=== PATIENT | male | born 1950 | race Caucasian/White ===

== ENCOUNTER → 2021-02-21 | Outpatient (CLI) | payer BC ==
--- NOTE | 2021-02-21 21:48 | CONS ---
CONSULTATION .REASON FOR CONSULTATION: Snoring. HISTORY OF PRESENT ILLNESS: This patient was referred to me by Dr. Madison. The patient has loud snoring and he was referred to me for sleep apnea evaluation. He had already seen Dr. Madison who referred him to me and a baseline screening study will be needed planning further treatment regarding his snoring. He goes to bed around 10:30 pm and wakes up 6:30 am in the morning. He is sleeping in a separate bedroom, knowing that his has cancer for now and they have not been able to sleep in the same bedroom for now. No witnessed apneas. No major somnolence or sleepiness during the day. Patient's Deerfield score is at 6. No recent weight gain or weight loss. He wakes up twice in the middle of night to go to the bathroom. No insomnia. No choking or gasping for air. No grinding of the teeth. No sleepwalking or sleep talking. No issues with driving his car or any other motor vehicle accident because of feeling drowsy or sleepy. PAST MEDICAL HISTORY: Negative. SURGICAL HISTORY: Includes hernia surgery and resection of a skin cancer of basal cell carcinoma. The patient has also had surgical correction of a deviated nasal septum and resection of inferior turbinates. DRUG ALLERGIES: DRUG ALLERGIES ARE TO SULFA. He is also ALLERGIC to NUTS, and PEANUTS AND WALNUTS. OUTPATIENT MEDICATION LIST: Includes Centrum multivitamin, vitamin B12 5000 mcg p.o. daily, vitamin D 325 mcg p.o. daily, Saw palmetto. SOCIAL HISTORY: Nonsmoker. No history of alcohol. No history of IV drugs. FAMILY HISTORY: Father of complications of leukemia. REVIEW OF SYSTEMS: Fourteen-point review of system was done. Positive findings are mentioned in history of present illness. PHYSICAL EXAMINATION: BP is 109/73, pulse 86, respirations 16, temperature 98.0. Saturation 96% on room air. Height is 5 feet 6 inches. Weight is 181. Deerfield score is 6, BMI is 29. General appearance: Calm and comfortable. HEAD: Atraumatic, normocephalic. NECK is supple. No JVD. No goiter or neck masses. LUNGS: Clear to auscultation. HEART: Sounds are regular rate and rhythm. Normal S1, S2. No S3, S4. No murmurs. ABDOMEN: Soft, nontender. No organomegaly. EXTREMITIES: No edema, no cyanosis or clubbing. NEUROLOGIC: Awake and alert. There is no focal neurological deficit. IMPRESSION: 1. Snoring. Suspicion for sleep apnea is quite low. 2. No major hypersomnia. Deerfield score is 6. PLAN: 1. Home sleep study to screen this patient for sleep apnea. 2. We will coordinate snoring treatment with ENT. The patient has no major sinus allergies. He has already undergone a surgical repair of nasal septum. Further treatment will largely depend on the presence or absence of sleep apnea. Accordingly, a home sleep study was ordered. MMODL / IJN: [id number] /
== END ==
LOC: SLEEP 14:12
PROVIDERS: ATTEND Internal Medicine Critical Care Medicine
DX: R06.83 Snoring (principal); Z88.2 Allergy status to sulfonamides; Z91.018 Allergy to other foods; Z91.010 Allergy to peanuts
CPT/HCPCS: 99211

== ENCOUNTER 2023-02-01 16:30 | Inpatient (IN) | payer MEDICARE ==
[2023-02-01] MEDS: PIPERACILLIN-TAZOBACTAM 3.375 GM in SODIUM CHLORIDE 0.9% 100 ML IVPB SCH (18:47)
[2023-02-01] MEDS ORDERED: SODIUM CHLORIDE 0.9% 1,000 ML IV ONE (18:56)
[2023-02-01] MEDS ORDERED: IBUPROFEN 400 MG TAB PO PRN (19:06)
[2023-02-01] MEDS ORDERED: NALOXONE 0.4 MG/ML 1 ML VIAL IV PRN (19:06)
--- NOTE | 2023-02-01 19:06 | ED ---
Abdominal Pain HPI - General Chief Complaint: Abdominal Pain Stated Complaint: Recheck Time Seen by Provider: 02/01/23 17:00 Source: patient Mode of arrival: wheelchair Limitations: no limitations - History of Present Illness Initial Comments: 72-year-old male with past medical history of right hip replacement who presents to the emergency department for an abnormal CT. Patient has been having right lower quadrant abdominal pain for the past couple of days. He went into his primary care office with a completed laboratory studies. Patient was sent to the hospital for a CT of his abdomen and pelvis. Outpatient labs demonstrated that the patient had a leukocytosis. Outpatient CT was concerning for enterocolitis and possible secondary appendicitis. Patient was sent from outpatient CT right over to the ER for abnormal results. He states he has had some constipation today. Did have a fever last night. Denies any black or bloody stools. No changes in his urination. No abdominal surgeries. He was concerned about his fever as he recently had a right hip replacement by a Dr. Durbin one month ago. He denies any hip pain. He tried to call the office last night however they stated that he should go to the hospital if he was having a fever. He did go to urgent care and they checked a urine. Stated that he had a urinary tract infection and started him on Keflex. States she took 1 dose without any improvement in any of his symptoms. No fevers chills or cough. No chest pain. No sick contacts as similar symptoms. No other alleviating, precipitating or modifying factors - Related Data Home Medications Medication Instructions Recorded Confirmed Cephalexin [Keflex] 1,000 mg PO BID 02/01/23 02/01/23 Multivitamins, Thera [Multivitamin 1 tab PO DAILY 02/01/23 02/01/23 (formulary)] [place]-3/Dha/Epa/Fish Oil [Fish Oil 1 cap PO BID 02/01/23 02/01/23 1,000 mg Softgel] Prevagen 1 cap PO DAILY 02/01/23 02/01/23 Allergies Allergy/AdvReac Type Severity Reaction Status Date / Time peanut Allergy Rapid Verified 02/02/23 02:34 Heart Rate tree nut [Nut] Allergy Rapid Verified 02/01/23 19:10 Heart Rate Sulfa (Sulfonamide AdvReac Rash/Hives Verified 02/01/23 19:10 Antibiotics) Review of Systems ROS Statement: Those systems with pertinent positive or pertinent negative responses have been documented in the HPI. ROS Other: All systems not noted in ROS Statement are negative. Past Medical History Past Medical History: No Reported History History of Any Multi-Drug Resistant Organisms: None Reported Past Surgical History: Hernia Repair, Joint Replacement Additional Past Surgical History / Comment(s): right hip , bilateral hernia Past Psychological History: No Psychological Hx Reported Smoking Status: Never smoker Past Alcohol Use History: None Reported Past Drug Use History: None Reported General Exam Limitations: no limitations General appearance: alert, in no apparent distress Head exam: Present: atraumatic, normocephalic, normal inspection Eye exam: Present: normal appearance, PERRL, EOMI. Absent: scleral icterus, conjunctival injection, periorbital swelling ENT exam: Present: normal exam, mucous membranes moist Neck exam: Present: normal inspection. Absent: tenderness, meningismus, lymphadenopathy Respiratory exam: Present: normal lung sounds bilaterally. Absent: respiratory distress, wheezes, rales, rhonchi, stridor Cardiovascular Exam: Present: normal rhythm, tachycardia GI/Abdominal exam: Present: soft, tenderness (significant tenderness rlq), normal bowel sounds. Absent: distended, guarding, rebound, rigid Extremities exam: Present: normal inspection, full ROM, normal capillary refill. Absent: tenderness, pedal edema, joint swelling, calf tenderness Back exam: Present: normal inspection Neurological exam: Present: alert, oriented X3, CN II-XII intact Psychiatric exam: Present: normal affect, normal mood Skin exam: Present: warm, dry, intact, normal color. Absent: rash Course Vital Signs 02/01/23 02/01/23 02/01/23 16:58 17:34 17:40 Temperature 99.7 F H 99.5 F Pulse Rate 108 H 102 H Respiratory 20 20 Rate Blood Pressure 144/78 142/85 142/85 O2 Sat by Pulse 96 96 96 Oximetry 02/01/23 02/01/23 02/01/23 17:50 18:00 18:10 Temperature Pulse Rate Respiratory Rate Blood Pressure 142/85 142/85 142/85 O2 Sat by Pulse 95 96 97 Oximetry 02/01/23 02/01/23 02/01/23 18:20 18:30 18:40 Temperature Pulse Rate Respiratory Rate Blood Pressure 142/85 142/85 142/85 O2 Sat by Pulse 95 95 Oximetry 02/01/23 02/01/23 02/01/23 18:50 19:00 19:10 Temperature Pulse Rate 101 H 97 102 H Respiratory 16 Rate Blood Pressure 142/85 138/82 133/96 O2 Sat by Pulse 97 96 96 Oximetry 02/01/23 02/01/23 02/01/23 19:20 19:27 19:30 Temperature 98.3 F Pulse Rate 104 H 109 H Respiratory 17 Rate Blood Pressure 133/96 133/96 O2 Sat by Pulse 96 94 L Oximetry 02/01/23 02/01/23 02/01/23 19:40 20:00 20:30 Temperature Pulse Rate 99 99 101 H Respiratory Rate Blood Pressure 133/96 133/96 133/78 O2 Sat by Pulse 97 98 Oximetry 02/01/23 02/01/23 21:00 21:30 Temperature Pulse Rate 102 H 104 H Respiratory 16 Rate Blood Pressure 133/78 137/86 O2 Sat by Pulse Oximetry Medical Decision Making - Medical Decision Making Was pt. sent in by a medical professional or institution (, PA, PUNCH FINISHER, urgent care, hospital, or long term...) When possible be specific @ -Yes, sent in from outpatient CT Did you speak to anyone other than the patient for history (EMS, parent, family, police, friend...)? What history was obtained from this source @ -No Did you review nursing and triage notes (agree or disagree)? Why? @ -I reviewed and agree with nursing and triage notes Were old charts reviewed (outside hosp., previous admission, EMS record, old EKG, old radiological studies, urgent care reports/EKG's, long term records)? Report findings @ -yes, i reviewed the patients outpatient ct and lab work from today Differential Diagnosis (chest pain, altered mental status, abdominal pain women, abdominal pain men, vaginal bleeding, weakness, fever, dyspnea, syncope, headache, dizziness, GI bleed, back pain, seizure, CVA, palpatations, mental health, musculoskeletal)? @ -appendicitis, colitis, enterocolitis, mesenteric adenitis EKG interpreted by me (3pts min.). @ -No X-rays interpreted by me (1pt min.). @ -No CT interpreted by me (1pt min.). @ -I interpreted the outpatient CT U/S interpreted by me (1pt. min.). @ -None done What testing was considered but not performed or refused? (CT, X-rays, U/S, labs)? Why? @ -None What meds were considered but not given or refused? Why? @ -None Did you discuss the management of the patient with other professionals (professionals i.e. , PA, PUNCH FINISHER, lab, RT, psych nurse, geriatric social work professor, vehicle damage appraiser, teacher, retail loan officer, family caseworker)? Give summary @ -Yes, discussed admission with dr francis Was smoking cessation discussed for >3mins.? @ -No Was critical care preformed (if so, how long)? @ -No Were there social determinants of health that impacted care today? How? (Homelessness, low income, unemployed, alcoholism, drug addiction, transportatio n, low edu. Level, literacy, decrease access to med. care, halfway, rehab)? @ -No Was there de-escalation of care discussed even if they declined (Discuss DNR or withdrawal of care, Hospice)? DNR status @ -No What co-morbidities impacted this encounter? (DM, HTN, Smoking, COPD, CAD, Cancer, CVA, ARF, Chemo, Hep., AIDS, mental health diagnosis, sleep apnea, morbid obesity)? @ -None Was patient admitted / discharged? Hospital course, mention meds given and route, prescriptions, significant lab abnormalities, going to OR and other pertinent info. @ -Upon arrival patient was placed into room 11. Thorough history and physical exam is performed. I did review the patient's outpatient labs which demonstrated a leukocytosis. CT from today demonstrates enterocolitis with concern for secondary appendicitis. I recommended admission for antibiotics, fluids and surgical consultation. Patient was agreeable to this. Dr. Francis accepted admission with Dr. Gonzalez on consult Undiagnosed new problem with uncertain prognosis? @ -yes Drug Therapy requiring intensive monitoring for toxicity (Heparin, Nitro, In sulin, Cardizem)? @ -No Were any procedures done? @ -No Diagnosis/symptom? @ -acute rlq pain, acute enterocolitis, possible appendicitis Acute, or Chronic, or Acute on Chronic? @ -acute Uncomplicated (without systemic symptoms) or Complicated (systemic symptoms)? @ -complicated Side effects of treatment? @ -allergic reaction Exacerbation, Progression, or Severe Exacerbation? @ -No Poses a threat to life or bodily function? How? (Chest pain, [place], [place], pneumonia, PE, COPD, DKA, ARF, appy, cholecystitis, CVA, Diverticulitis, Homicidal, Suicidal, threat to staff... and all critical care pts) @ -yes - if untreated, infection can lead to - Lab Data Result diagrams: 02/04/23 04:36 02/04/23 04:36 Disposition Clinical Impression: Sepsis, Appendicitis, Enterocolitis, Leukocytosis Disposition: ADMITTED IP TO THIS [facility] Condition: Serious Is patient prescribed a controlled substance at d/c from ED?: No Time of Disposition: 19:06 Decision to Admit Reason: Admit from EC Decision Date: 02/01/23 Decision Time: 19:06
[2023-02-01] MEDS: SODIUM CHLORIDE 0.9% 1,000 ML IV SCH (19:14)
[2023-02-02] MEDS: PIPERACILLIN-TAZOBACTAM 3.375 GM in SODIUM CHLORIDE 0.9% 100 ML IVPB SCH ×4 (00:36→23:46)
[2023-02-02] MEDS: SODIUM CHLORIDE 0.9% 1,000 ML IV SCH ×2 (04:23→13:29)
[2023-02-02 08:08] LABS: Basophils % (A) 0 %; Eosinophils # (A) 0.1 k/uL (0-0.7); Eosinophils % (A) 1 %; HCT 37.2 % (39.0-53.0); HGB 12.1 gm/dL (13.0-17.5); Lymphocytes # (A) 0.8 k/uL (1.0-4.8); Lymphocytes % (A) 6 %; MCH 31.5 pg (25.0-35.0); MCHC 32.5 g/dL (31.0-37.0); Mean Platelet Volume 8.9; Monocytes # (A) 0.4 k/uL (0-1.0); Monocytes % (A) 3 %; Neutrophils # (A) 11.1 k/uL (1.3-7.7); Neutrophils % (A) 89 %; Platelet Count 146 k/uL (150-450); RBC 3.83 m/uL (4.30-5.90); RDW 13.5 % (11.5-15.5); WBC 12.5 k/uL (3.8-10.6)
[2023-02-02] MEDS ORDERED: NON FORMULARY DRUG (Omega-3/Dha/Epa/Fish Oil [Fish Oil 1,000 Mg Softgel] 1 EACH Capsule) PO SCH (09:00)
[2023-02-02] MEDS ORDERED: NON FORMULARY DRUG (Prevagen 1 CAP) PO SCH (09:00)
[2023-02-02] MEDS ORDERED: MORPHINE SULFATE 4 MG/ML SYRINGE IVP PRN (09:10)
--- NOTE | 2023-02-02 09:10 | P.HPIM ---
History of Present Illness H&P Date: 02/02/23 Notified of admission at 8:03 AM as patient initially admitted under [facility] italist team. History of Presenting Illness: Patient is a very pleasant 72-year-old male with a past medical history of obstructive sleep apnea and osteoarthritis status post right hip replacement. He presented to the emergency department secondary to right lower quadrant abdominal pain. Patient reported pain began 2-3 days ago and progressively worsened. Patient went to his PCP for evaluation and was sent to the hospital for a CT abdomen and pelvis. Outpatient CT abdomen and pelvis with contrast was reviewed and revealed moderate generalized enterocolitis with the greatest degree of small bowel wall thickening in right lower quadrant, inflammatory thickening also extending into the cecum and appendix as well, primary en terocolitis with secondary inflammation of the appendix is reported, acute appendicitis is not ruled out, also reported long segment colitis is noted to transverse colon, moderate inflammatory edema and fat stranding in the right lower quadrant along with mild pelvic free fluid likely reactive, circ umferential bladder wall thickening possibly representing chronic bilateral hypertrophia versus cystitis, and prostamegaly with prostate reported to be 5.3 cm wide. Patient was sent to ER secondary to these findings. Patient has been admitted under our services with consultation to general surgery team. Patient denies experiencing any nausea, vomiting, fevers, chills, diaphoresis, chest pain, palpitations, shortness of breath, or any other complaints at this time. Review of systems: Pertinent positives and negatives as discussed in HPI, a complete review of systems was performed and all other systems are negative. Physical exam: Vital signs reviewed and stable. General: Nontoxic, no distress and appears stated age. Derm: Skin warm and dry, normal coloration for ethnicity. Head: Atraumatic, normocephalic and symmetric. Eyes: EOMs intact, no lid lag, and anicteric sclera Mouth: no lip lesions, mucus membranes moist Cardiovascular: regular rate and rhythm with normal S1S2, no murmur, positive posterior tibial pulses bilaterally, and cap refill < 2 seconds. Lungs: Respirations even, regular, and unlabored on room air. Lungs CTA bilaterally, no rhonchi, no rales, no wheezing, and no accessory muscle usage. Abdominal: soft, tenderness reported to right lower quadrant, left lower quadra nt, and right upper quadrant upon palpation. Patient does report worse pain in right lower quadrant. Ext: ROM intact. No gross muscle atrophy, no edema, no contractures Neuro: Speech clear, face symmetrical and CN II-XII grossly intact with no noted focal neuro deficits Psych: Alert and oriented to person, place, time, and situation. Appropriate and pleasant affect. Assessment and Plan of Care: Enterocolitis Right lower quadrant abdominal pain, rule out acute appendicitis Leukocytosis, secondary to above -CT abdomen and pelvis with contrast was reviewed and revealed moderate generalized enterocolitis with the greatest degree of small bowel wall thickening in right lower quadrant, inflammatory thickening also extending into the cecum and appendix as well, primary enterocolitis with secondary inflammation of the appendix is reported, acute appendicitis is not ruled out, also reported long segment colitis is noted to transverse colon, moderate inflammatory edema and fat stranding in the right lower quadrant along with mild pelvic free fluid likely reactive, circumferential bladder wall thickening possibly representing chronic bilateral hypertrophia versus cystitis, and prostamegaly with prostate reported to be 5.3 cm wide. -Morning labs reviewed. CBC revealing leukocytosis with WBC count of 12.5 and normocytic anemia with hemoglobin of 12.1. BMP was unremarkable. -Continue IV antibiotics with Zosyn 3.375 g every 8 hours -0.9% normal saline discontinued and patient started on D5 0.45 at 100 mL's per hour. Orders also placed for glycemic protocol and [id number] glucose checks every 6 hours while patient remains NPO. -Discussed with general surgeon, plans to continue IV antibiotics and will reevaluate daily. If no improvement may require surgical intervention. -Order placed for repeat CBC and CMP with a.m. labs. Abnormal imaging finding Circumferential bladder wall thickening, chronic bilateral hypertrophia versus cystitis Prostamegaly -Order placed for urinalysis with reflex to culture, will follow up on these results. -Order placed for bladder management to monitor for post void residuals and strict I's and O's. The patient is admitted with an anticipated greater than 2 midnight stay for evaluation of acute enterocolitis and possible appendicitis CODE STATUS: Full code DVT prophylaxis: Heparin Discussed with: Patient, RN, and general surgeon Anticipated discharge date: Clinical course to determine Anticipated discharge place: Home Patient was seen independently by Nurse Practitioner. This document was prepared using Qinti dictation software. Please allow for errors in artists' model while rare they do occur. Eric Mitchell NP rendered care for this patient independently, reviewed the findings and plan as documented in the note above. I did not physically speak with or examine the patient on this date. Past Medical History Past Medical History: No Reported History History of Any Multi-Drug Resistant Organisms: None Reported Past Surgical History: Hernia Repair, Joint Replacement Additional Past Surgical History / Comment(s): right hip , bilateral hernia Past Anesthesia/Blood Transfusion Reactions: No Reported Reaction Past Psychological History: No Psychological Hx Reported Smoking Status: Never smoker Past Alcohol Use History: None Reported Past Drug Use History: None Reported Medications and Allergies Home Medications Medication Instructions Recorded Confirmed Type Cephalexin [Keflex] 1,000 mg PO BID 02/01/23 02/01/23 History Multivitamins, Thera [Multivitamin 1 tab PO DAILY 02/01/23 02/01/23 History (formulary)] [place]-3/Dha/Epa/Fish Oil [Fish Oil 1 cap PO BID 02/01/23 02/01/23 History 1,000 mg Softgel] Prevagen 1 cap PO DAILY 02/01/23 02/01/23 History Allergies Allergy/AdvReac Type Severity Reaction Status Date / Time peanut Allergy Rapid Verified 02/02/23 02:34 Heart Rate tree nut [Nut] Allergy Rapid Verified 02/01/23 19:10 Heart Rate Sulfa (Sulfonamide AdvReac Rash/Hives Verified 02/01/23 19:10 Antibiotics) Physical Exam Vitals: Vital Signs Temp Pulse Pulse Resp BP BP Pulse Ox 02/02/23 07:28 97.7 F 92 16 103/63 94 L 02/02/23 01:20 98.4 F 99 18 98/62 93 L 02/01/23 22:30 104 H 02/01/23 22:05 98.4 F 102 H 17 120/75 95 02/01/23 21:30 104 H 16 137/86 02/01/23 21:00 102 H 133/78 02/01/23 20:30 101 H 133/78 98 02/01/23 20:00 99 133/96 97 02/01/23 19:40 99 133/96 02/01/23 19:30 109 H 17 133/96 94 L 02/01/23 19:27 98.3 F 02/01/23 19:20 104 H 133/96 96 02/01/23 19:10 102 H 133/96 96 02/01/23 19:00 97 138/82 96 02/01/23 18:50 101 H 16 142/85 97 02/01/23 18:40 142/85 02/01/23 18:30 142/85 95 02/01/23 18:20 142/85 95 02/01/23 18:10 142/85 97 02/01/23 18:00 142/85 96 02/01/23 17:50 142/85 95 02/01/23 17:40 142/85 96 02/01/23 17:34 99.5 F 102 H 20 142/85 96 02/01/23 16:58 99.7 F H 108 H 20 144/78 96 Intake and Output 02/01/23 02/02/23 02/02/23 22:59 06:59 14:59 Output Total 500 Balance -500 Output: Urine 500 Other: Voiding Method Toilet Urinal Weight 79.379 kg Results CBC & Chem 7: 02/04/23 04:36 02/04/23 04:36 Labs: Abnormal Lab Results - Last 24 Hours (Table) 02/02/23 Range/Units 06:58 WBC 12.5 H (3.8-10.6) k/uL RBC 3.83 L (4.30-5.90) m/uL Hgb 12.1 L (13.0-17.5) gm/dL Hct 37.2 L (39.0-53.0) % Plt Count 146 L (150-450) k/uL Neutrophils # 11.1 H (1.3-7.7) k/uL Lymphocytes # 0.8 L (1.0-4.8) k/uL Thrombosis Risk Factor Assmnt - Choose All That Apply Any of the Below Risk Factors Present?: No Other Risk Factors: Yes Each Risk Factor Represents 2 Points: Age 61-74 years Thrombosis Risk Factor Assessment Total Risk Factor Score: 2 Thrombosis Risk Factor Assessment Level: Low Risk
[2023-02-02] MEDS: MULTIVITAMINS, THERA 1 EACH TAB PO SCH (09:13)
--- NOTE | 2023-02-02 09:18 | P.GSCN ---
History of Present Illness Consult date: 02/02/23 Reason for Consult: Abdominal pain History of present illness: This a 72-year-old male who's had complaints of abdominal pain for several days. Patient was seen initially. His CAT scan suggestive of colitis of the terminal ileum and right colon. Patient states his pain is better today. He does have some tenderness in the right lower quadrant. Past Medical History Past Medical History: No Reported History History of Any Multi-Drug Resistant Organisms: None Reported Past Surgical History: Hernia Repair, Joint Replacement Additional Past Surgical History / Comment(s): right hip , bilateral hernia Past Anesthesia/Blood Transfusion Reactions: No Reported Reaction Past Psychological History: No Psychological Hx Reported Smoking Status: Never smoker Past Alcohol Use History: None Reported Past Drug Use History: None Reported Medications and Allergies Home Medications Medication Instructions Recorded Confirmed Type Cephalexin [Keflex] 1,000 mg PO BID 02/01/23 02/01/23 History Multivitamins, Thera [Multivitamin 1 tab PO DAILY 02/01/23 02/01/23 History (formulary)] [place]-3/Dha/Epa/Fish Oil [Fish Oil 1 cap PO BID 02/01/23 02/01/23 History 1,000 mg Softgel] Prevagen 1 cap PO DAILY 02/01/23 02/01/23 History Allergies Allergy/AdvReac Type Severity Reaction Status Date / Time peanut Allergy Rapid Verified 02/02/23 02:34 Heart Rate tree nut [Nut] Allergy Rapid Verified 02/01/23 19:10 Heart Rate Sulfa (Sulfonamide AdvReac Rash/Hives Verified 02/01/23 19:10 Antibiotics) Surgical - Exam Vital Signs Temp Pulse Resp BP Pulse Ox 99.7 F H 108 H 20 144/78 96 02/01/23 16:58 02/01/23 16:58 02/01/23 16:58 02/01/23 16:58 02/01/23 16:58 - General well developed, well nourished, no distress - Eyes PERRL - ENT normal pinna - Neck no masses - Respiratory normal expansion - Cardiovascular Rhythm: regular - Abdomen Marked tenderness right lower quadrant Abdomen: soft Results - Labs 02/02/23 06:58 Abnormal Lab Results - Last 24 Hours (Table) 02/02/23 Range/Units 06:58 WBC 12.5 H (3.8-10.6) k/uL RBC 3.83 L (4.30-5.90) m/uL Hgb 12.1 L (13.0-17.5) gm/dL Hct 37.2 L (39.0-53.0) % Plt Count 146 L (150-450) k/uL Neutrophils # 11.1 H (1.3-7.7) k/uL Lymphocytes # 0.8 L (1.0-4.8) k/uL Assessment and Plan Plan: Enterocleisis. Patient will be observed. He'll continue receive IV antibiotics. He may require surgery if this symptoms did not improve.
[2023-02-02] MEDS: ACETAMINOPHEN TAB 325 MG TAB PO PRN ×2 (09:19→21:58)
[2023-02-02] MEDS: PANTOPRAZOLE 40 MG/10 ML VIAL IVP SCH (09:22)
[2023-02-02 09:56] LABS: African American GFR (CKD) 70.8 (60.0-200.0); Anion Gap 11.6 mmol/L (10.00-18.00); BUN/Creat Ratio 11.88 Ratio (12.00-20.00); Blood Urea Nitrogen 13.9 mg/dL (9.0-27.0); Calcium 8.6 mg/dL (8.7-10.3); Carbon Dioxide 21.5 mmol/L (20.0-27.5); Non-African American GFR(CKD) 61.1 (60.0-200.0); Potassium 4.3 mmol/L (3.5-5.5)
[2023-02-02] MEDS ORDERED: DEXTROSE 50% SYRINGE 50 ML IVP PRN ×2 (16:26)
[2023-02-02 16:36] LABS: Glucose,Whole Blood 85 mg/dL (70-110)
[2023-02-02] MEDS: HEPARIN SODIUM,PORCINE/PF 5,000 UNIT/0.5 ML SYRINGE SQ SCH ×2 (16:51→23:47)
[2023-02-02] MEDS: DEXTROSE 5%-0.45% NACL 1,000 ML IV SCH (16:52)
[2023-02-02 23:58] LABS: Glucose,Whole Blood 112 mg/dL (70-110)
[2023-02-03 03:34] LABS: Appearance,Urine Clear (Clear); Bacteria,Urine Rare /hpf; Bilirubin,Urine Negative (Negative); Blood,Urine Small (Negative); Color,Urine Yellow; Glucose,Urine (UA) Negative (Negative); Ketones,Urine 3+ (Negative); Leukocyte Esterase,Urine Negative (Negative); Nitrite,Urine Negative (Negative); PH, Urine 6.5 (5.0-8.0); Protein,Urine 1+ (Negative); RBC,Urine 5 /hpf (0-5); Specific Gravity,Urine 1.024 (1.001-1.035); Urobilinogen,Urine <2.0 mg/dL (<2.0); WBC,Urine 1 /hpf (0-5)
[2023-02-03] MEDS: DEXTROSE 5%-0.45% NACL 1,000 ML IV SCH ×2 (05:26→14:32)
[2023-02-03] MEDS: ACETAMINOPHEN TAB 325 MG TAB PO PRN ×5 (05:28→23:27)
[2023-02-03 05:42] LABS: Glucose,Whole Blood 111 mg/dL (70-110)
[2023-02-03] MEDS: PIPERACILLIN-TAZOBACTAM 3.375 GM in SODIUM CHLORIDE 0.9% 100 ML IVPB SCH ×3 (08:59→23:28)
[2023-02-03] MEDS: HEPARIN SODIUM,PORCINE/PF 5,000 UNIT/0.5 ML SYRINGE SQ SCH ×3 (08:59→23:28)
[2023-02-03] MEDS: MULTIVITAMINS, THERA 1 EACH TAB PO SCH (09:00)
[2023-02-03] MEDS: PANTOPRAZOLE 40 MG/10 ML VIAL IVP SCH (09:41)
[2023-02-03 10:35] LABS: ALT 13 U/L (4-49); AST 19 U/L (17-59); African American GFR (CKD) >90 (>60 ml/min/1.73 sqM); Albumin/Globulin Ratio 1.1; Alkaline Phosphatase 76 U/L (38-126); Anion Gap 7 mmol/L; Blood Urea Nitrogen 11 mg/dL (9-20); Calcium 8.2 mg/dL (8.4-10.2); Carbon Dioxide 24 mmol/L (22-30); Chloride 104 mmol/L (98-107); Globulin 2.7 g/dL; Glucose 125 mg/dL (74-99); Non-African American GFR(CKD) 84 (>60 ml/min/1.73 sqM); Potassium 3.7 mmol/L (3.5-5.1); Sodium 135 mmol/L (137-145); Total Bilirubin 0.8 mg/dL (0.2-1.3); Total Protein 5.7 g/dL (6.3-8.2)
[2023-02-03 10:40] LABS: HCT 36.1 % (39.0-53.0); HGB 11.8 gm/dL (13.0-17.5); MCH 30.6 pg (25.0-35.0); MCHC 32.6 g/dL (31.0-37.0); MCV 94.1 fL (80.0-100.0); Platelet Count 217 k/uL (150-450); RBC 3.84 m/uL (4.30-5.90); RDW 13.5 % (11.5-15.5); WBC 11.8 k/uL (3.8-10.6)
[2023-02-03 11:29] LABS: Glucose,Whole Blood 119 mg/dL (70-110)
--- NOTE | 2023-02-03 12:34 | P.PN ---
Progress Note - Text Progress Note Date: 02/03/23 Patient still has complaints of significant right lower quadrant pain. On exam vital signs appear stable. Abdomen soft. There is tenderness left lower quadrant. Patient will have repeat CAT scan performed today with oral contrast tonight for source of right lower quadrant pain.
[2023-02-03] MEDS: IOPAMIDOL CONTRAST (ORAL USE) VIAL PO PRN ×2 (13:18→14:29)
[2023-02-03 16:57] LABS: Glucose,Whole Blood 123 mg/dL (70-110)
--- NOTE | 2023-02-03 17:00 | P.PN ---
Subjective Progress Note Date: 02/03/23 Hospital course: Patient is a very pleasant 72-year-old male with a past medical history of obstructive sleep apnea and osteoarthritis status post right hip replacement. He presented to the emergency department secondary to right lower quadrant abdominal pain. Patient reported pain began 2-3 days ago and progressively worsened. Patient went to his PCP for evaluation and was sent to the hospital for a CT abdomen and pelvis. Outpatient CT abdomen and pelvis with contrast was reviewed and revealed moderate generalized enterocolitis with the greatest degr ee of small bowel wall thickening in right lower quadrant, inflammatory thickening also extending into the cecum and appendix as well, primary enterocolitis with secondary inflammation of the appendix is reported, acute appendicitis is not ruled out, also reported long segment colitis is noted to tr ansverse colon, moderate inflammatory edema and fat stranding in the right lower quadrant along with mild pelvic free fluid likely reactive, circumferential bladder wall thickening possibly representing chronic bilateral hypertrophia versus cystitis, and prostamegaly with prostate reported to be 5.3 cm wide. Patient was sent to ER secondary to these findings. Patient has been admitted under our services with consultation to general surgery team. Physical exam: Patient denies experiencing any nausea, vomiting, fevers, chills, diaphoresis, chest pain, palpitations, shortness of breath, or any other complaints at this time. Patient does report slight improvement in abdominal pain but continues to have moderate discomfort with light palpation to right lower quadrant. Vital signs reviewed and stable. General: Nontoxic, no distress and appears stated age. Derm: Skin warm and dry, normal coloration for ethnicity. Head: Atraumatic, normocephalic and symmetric. Eyes: EOMs intact, no lid lag, and anicteric sclera Mouth: no lip lesions, mucus membranes moist Cardiovascular: regular rate and rhythm with normal S1S2, no murmur, positive posterior tibial pulses bilaterally, and cap refill < 2 seconds. Lungs: Respirations even, regular, and unlabored on room air. Lungs CTA bilaterally, no rhonchi, no rales, no wheezing, and no accessory muscle usage. Abdominal: soft, tenderness reported to right lower quadrant upon palpation. Patient does report worse pain in right lower quadrant. Ext: ROM intact. No gross muscle atrophy, no edema, no contractures Neuro: Speech clear, face symmetrical and CN II-XII grossly intact with no noted focal neuro deficits Psych: Alert and oriented to person, place, time, and situation. Appropriate and pleasant affect. Assessment and Plan of Care: Enterocolitis Right lower quadrant abdominal pain, rule out acute appendicitis Leukocytosis, secondary to above -CT abdomen and pelvis with contrast was completed 02/01/23 revealed moderate generalized enterocolitis with the greatest degree of small bowel wall thicken ing in right lower quadrant, inflammatory thickening also extending into the cecum and appendix as well, primary enterocolitis with secondary inflammation of the appendix is reported, acute appendicitis is not ruled out, also reported long segment colitis is noted to transverse colon, moderate inflammatory edema and fat stranding in the right lower quadrant along with mild pelvic free fluid likely reactive, circumferential bladder wall thickening possibly representing chronic bilateral hypertrophia versus cystitis, and prostamegaly with prostate reported to be 5.3 cm wide. -Repeat CT abdomen and pelvis with oral and IV contrast being completed today, will follow up on these results. -Morning labs reviewed. CBC revealing leukocytosis with WBC count of 11.8 and normocytic anemia with hemoglobin of 11.8. BMP remains unremarkable. -Continue IV antibiotics with Zosyn 3.375 g every 8 hours -Continue with IV fluid hydration with D5 0.45 at 100 mL's per hour. Orders also placed for glycemic protocol and [id number] glucose checks every 6 hours while patient remains NPO. -Discussed with general surgeon, plans to continue IV antibiotics and If no improvement pt may require surgical intervention. -Order placed for repeat CBC and CMP with a.m. labs. Abnormal imaging finding Circumferential bladder wall thickening, chronic bilateral hypertrophia versus cystitis Prostamegaly -Urinalysis obtained positive for ketones negative for infection. -Order placed for bladder management to monitor for post void residuals and strict I's and O's. CODE STATUS: Full code DVT prophylaxis: Heparin Discussed with: Patient, RN, and general surgeon Anticipated discharge date: Clinical course to determine Anticipated discharge place: Home Patient was seen independently by Nurse Practitioner. This document was prepared using [employer] dictation software. Please allow for errors in wool classer while rare they do occur. Eric Mitchell NP rendered care for this patient independently, reviewed the findings and plan as documented in the note above. I did not physically speak with or examine the patient on this date. Objective - Vital Signs Vital signs: Vital Signs Temp 98.3 F 02/03/23 08:00 Pulse 89 02/03/23 08:16 Resp 17 02/03/23 08:16 BP 137/73 02/03/23 08:00 Pulse Ox 95 02/03/23 08:00 FiO2 Intake & Output 02/02/23 02/03/23 02/03/23 18:59 06:59 18:59 Intake Total 0 Balance 0 Intake: Oral 0 Other: Voiding Method Toilet Toilet Urinal # Voids 2 2 - Labs CBC & Chem 7: 02/04/23 04:36 02/04/23 04:36 Labs: Abnormal Lab Results - Last 24 Hours (Table) 02/02/23 02/02/23 02/03/23 Range/Units 06:58 23:48 03:00 BUN/Creatinine Ratio 11.88 L (12.00-20.00) Ratio POC Glucose (mg/dL) 112 H (70-110) mg/dL Calcium 8.6 L (8.7-10.3) mg/dL Urine Protein 1+ H (Negative) Urine Ketones 3+ H (Negative) Urine Blood Small H (Negative) Urine Bacteria Rare H (None) /hpf 02/03/23 Range/Units 05:40 BUN/Creatinine Ratio (12.00-20.00) Ratio POC Glucose (mg/dL) 111 H (70-110) mg/dL Calcium (8.7-10.3) mg/dL Urine Protein (Negative) Urine Ketones (Negative) Urine Blood (Negative) Urine Bacteria (None) /hpf
--- NOTE | 2023-02-03 18:20 | CT ---
EXAMINATION TYPE: CT abdomen pelvis w con DATE OF EXAM: 02/03/2023 COMPARISON: Right lower quadrant pain INDICATION: abdominal pain DLP: 1053.3 mGycm, Automated exposure control for dose reduction was used. CONTRAST: 100 cc mL of Isovue 300. Study performed with Oral Contrast TECHNIQUE: Axial images were obtained from above the diaphragm to the pubic rami in the axial plane a t 5 mm thick sections. Reconstructed images are reviewed on the computer in the coronal plane. FINDINGS: Limited CT sections are obtained the lung bases. There is a minimal bilateral pleural effusion. Some mild compressive atelectasis adjacent. Small hiatal hernia with reflux is evident. CT ABDOMEN: Liver: Tiny hepatic cysts are present. Spleen: Normal Pancreas: Normal Adrenal glands: The adrenal glands are normal. Gallbladder: Normal Kidneys: No masses are evident. No hydronephrosis is present. No cysts are present. Delayed images were obtained through the kidneys, which remain unremarkable. Aorta: Normal Inferior vena cava: Normal. CT PELVIS: There is diffuse thickening of the cecum. Thickening extends into the terminal ileum. Fluid is in the paracolic gutter and pericecal region. The cecum appears distended measuring 6.9 cm in diameter. The appendix appears dilated at 1.4 cm. A couple of calcifications may be present. More proximal small bowel loops have a normal caliber. Couple of loops may be incompletely distended limiting their evaluation. There are loops of bowel lacking oral contrast limiting their evaluation. Descending colon may have some mild wall thickening within its mid to distal portion. This however i s nondistended. Some thickening through the distal descending colon at the descending colon sigmoid c olon junction may be present. Appendix: Normal as visualized. Urinary bladder: Normal. Impression from the prostate is evident. Genitourinary structures: Prostate is prominent. Osseous structures: No suspicious lytic or sclerotic lesions. Spondylolysis of L5 is present IMPRESSIONS: 1. Worsening thickening of the cecum. The cecum is becoming dilated and there is interval dilatation of the appendix. Terminal ileum wall thickening is also present. Correlate for typhlitis. This may b e creating secondary changes within the appendix suggesting this may be obstructing the appendix. 2. There are some additional mild wall thickening or incomplete distention including more proximal sm all bowel loops and the descending colon discussed above.
[2023-02-03 23:36] LABS: Glucose,Whole Blood 114 mg/dL (70-110)
[2023-02-04] MEDS: DEXTROSE 5%-0.45% NACL 1,000 ML IV SCH ×3 (00:35→23:03)
[2023-02-04 05:42] LABS: Glucose,Whole Blood 115 mg/dL (70-110)
[2023-02-04] MEDS: PIPERACILLIN-TAZOBACTAM 3.375 GM in SODIUM CHLORIDE 0.9% 100 ML IVPB SCH ×3 (08:48→23:27)
[2023-02-04] MEDS: HEPARIN SODIUM,PORCINE/PF 5,000 UNIT/0.5 ML SYRINGE SQ SCH ×3 (08:48→23:27)
[2023-02-04] MEDS: MULTIVITAMINS, THERA 1 EACH TAB PO SCH (08:48)
[2023-02-04] MEDS: PANTOPRAZOLE 40 MG/10 ML VIAL IVP SCH (08:48)
[2023-02-04] MEDS: ACETAMINOPHEN TAB 325 MG TAB PO PRN (08:54)
[2023-02-04 09:36] LABS: African American GFR (CKD) 76.2 (60.0-200.0); Albumin 3.3 g/dL (3.8-4.9); Albumin/Globulin Ratio 1.32 (1.60-3.17); Anion Gap 10.7 mmol/L (10.00-18.00); BUN/Creat Ratio 6.55 Ratio (12.00-20.00); Blood Urea Nitrogen 7.2 mg/dL (9.0-27.0); Calcium 8.8 mg/dL (8.7-10.3); Carbon Dioxide 24.3 mmol/L (20.0-27.5); Globulin 2.5 g/dL (1.6-3.3); Non-African American GFR(CKD) 65.8 (60.0-200.0); Potassium 3.7 mmol/L (3.5-5.5); Total Bilirubin 0.5 mg/dL (0.30-1.20); Total Protein 5.8 g/dL (6.2-8.2)
[2023-02-04 09:45] LABS: HCT 36.2 % (39.6-50.0); HGB 11.4 g/dL (13.0-17.0); MCH 29.8 pg (27.0-32.0); MCHC 31.5 g/dL (32.0-37.0); MCV 94.8 fL (80.0-97.0); Mean Platelet Volume 10.8 fL (9.5-12.2); NRBC Per 100 WBC 0 /100 WBCS (0.0-0.0); Platelet Count 238 X 10*3/uL (140-440); RBC 3.82 X 10*6/uL (4.40-5.60); RDW 13.8 % (11.5-14.5)
[2023-02-04 11:51] LABS: Glucose,Whole Blood 119 mg/dL (70-110)
[2023-02-04 12:27] LABS: INR 0.9 (<1.2); Partial Thromboplastin Time 28.9 sec (22.0-30.0); Prothrombin Time 9.5 sec (9.0-12.0)
--- NOTE | 2023-02-04 12:55 | P.PN ---
Subjective Progress Note Date: 02/04/23 Hospital course: Patient is a very pleasant 72-year-old male with a past medical history of obstructive sleep apnea and osteoarthritis status post right hip replacement. He presented to the emergency department secondary to right lower quadrant abdominal pain. Patient reported pain began 2-3 days ago and progressively worsened. Patient went to his PCP for evaluation and was sent to the hospital for a CT abdomen and pelvis. Outpatient CT abdomen and pelvis with contrast was reviewed and revealed moderate generalized enterocolitis with the greatest degr ee of small bowel wall thickening in right lower quadrant, inflammatory thickening also extending into the cecum and appendix as well, primary enterocolitis with secondary inflammation of the appendix is reported, acute appendicitis is not ruled out, also reported long segment colitis is noted to tr ansverse colon, moderate inflammatory edema and fat stranding in the right lower quadrant along with mild pelvic free fluid likely reactive, circumferential bladder wall thickening possibly representing chronic bilateral hypertrophia versus cystitis, and prostamegaly with prostate reported to be 5.3 cm wide. Patient was sent to ER secondary to these findings. Patient has been admitted under our services with consultation to general surgery team. Physical exam: Patient ports persistent right lower quadrant pain. Patient significantly tender upon palpation to right lower quadrant and right upper quadrant this morning. Repeat CT completed yesterday evening and upon review of radiology report showing worsening thickening of the cecum with cecum becoming dilated interval dilation of the appendix and terminal ileum wall thickening also present. Called and discussed these findings with general surgeon who stated patient will require surgical intervention. Patient updated on surgeons recommendations and scheduled to undergo a right colectomy later this afternoon. Vital signs reviewed surgeons recommendations and scheduled to undergo and st able. General: Nontoxic, no distress and appears stated age. Derm: Skin warm and dry, normal coloration for ethnicity. Head: Atraumatic, normocephalic and symmetric. Eyes: EOMs intact, no lid lag, and anicteric sclera Mouth: no lip lesions, mucus membranes moist Cardiovascular: regular rate and rhythm with normal S1S2, no murmur, positive posterior tibial pulses bilaterally, and cap refill < 2 seconds. Lungs: Respirations even, regular, and unlabored on room air. Lungs CTA bilaterally, no rhonchi, no rales, no wheezing, and no accessory muscle usage. Abdominal: soft, tenderness reported to right lower quadrant and right upper quadrant upon palpation. Patient does report worse pain in right lower quadrant. Ext: ROM intact. No gross muscle atrophy, no edema, no contractures Neuro: Speech clear, face symmetrical and CN II-XII grossly intact with no noted focal neuro deficits Psych: Alert and oriented to person, place, time, and situation. Appropriate and pleasant affect. Assessment and Plan of Care: Enterocolitis Right lower quadrant abdominal pain, rule out acute appendicitis Leukocytosis, secondary to above - Repeat CT completed yesterday evening and upon review of radiology report mark wing worsening thickening of the cecum with cecum becoming dilated interval dilation of the appendix and terminal ileum wall thickening also present. -Called and discussed these findings with general surgeon who stated patient will require surgical intervention. Patient updated on surgeons recommendations and scheduled to undergo a right colectomy later this afternoon. -Morning labs reviewed. CBC revealing leukocytosis with WBC count of 12.20 and normocytic anemia with hemoglobin of 11.4. BMP remains unremarkable. -Continue IV antibiotics with Zosyn 3.375 g every 8 hours -Continue with IV fluid hydration with D5 0.45 at 100 mL's per hour. Orders also placed for glycemic protocol and [id number] glucose checks every 6 hours while patient remains NPO. -Discussed with general surgeon, plans to continue IV antibiotics and If no improvement pt may require surgical intervention. -Order placed for repeat CBC and CMP with a.m. labs. Abnormal imaging finding Circumferential bladder wall thickening, chronic bilateral hypertrophia versus cystitis Prostamegaly -Urinalysis obtained positive for ketones negative for infection. -Continue bladder management to monitor for post void residuals and strict I's and O's. CODE STATUS: Full code DVT prophylaxis: Heparin Discussed with: Patient, RN, and general surgeon Anticipated discharge date: Clinical course to determine Anticipated discharge place: Home Patient was seen independently by Nurse Practitioner. This document was prepared using [employer] dictation software. Please allow for errors in pilot control operator helper while rare they do occur. This patient was seen independently by Eric Mitchell NP, I agree with documentation as above with the following additions: None. Objective - Vital Signs Vital signs: Vital Signs Temp 98.5 F 02/04/23 07:47 Pulse 88 02/04/23 07:47 Resp 18 02/04/23 01:14 BP 153/78 02/04/23 07:47 Pulse Ox 96 02/04/23 07:47 FiO2 Intake & Output 02/03/23 02/04/23 02/04/23 18:59 06:59 18:59 Other: Voiding Method Toilet Toilet Urinal # Voids 2 - Labs CBC & Chem 7: 02/06/23 05:06 02/06/23 05:06 Labs: Abnormal Lab Results - Last 24 Hours (Table) 02/03/23 02/03/23 02/03/23 Range/Units 06:40 06:40 11:27 WBC 11.8 H (3.8-10.6) k/uL RBC 3.84 L (4.30-5.90) m/uL Hgb 11.8 L (13.0-17.5) gm/dL Hct 36.1 L (39.0-53.0) % Sodium 135 L (137-145) mmol/L Glucose 125 H (74-99) mg/dL POC Glucose (mg/dL) 119 H (70-110) mg/dL Calcium 8.2 L (8.4-10.2) mg/dL Total Protein 5.7 L (6.3-8.2) g/dL Albumin 3.0 L (3.5-5.0) g/dL 02/03/23 02/03/23 02/04/23 Range/Units 16:56 23:31 05:38 WBC (3.8-10.6) k/uL RBC (4.30-5.90) m/uL Hgb (13.0-17.5) gm/dL Hct (39.0-53.0) % Sodium (137-145) mmol/L Glucose (74-99) mg/dL POC Glucose (mg/dL) 123 H 114 H 115 H (70-110) mg/dL Calcium (8.4-10.2) mg/dL Total Protein (6.3-8.2) g/dL Albumin (3.5-5.0) g/dL Microbiology - Last 24 Hours (Table) 02/01/23 18:05 Blood Culture - Preliminary Blood 02/01/23 18:20 Blood Culture - Preliminary Blood
--- NOTE | 2023-02-04 13:15 | P.PN ---
Subjective Progress Note Date: 02/04/23 CHIEF COMPLAINT: Right lower quadrant abdominal pain HISTORY OF PRESENT ILLNESS: Patient continues to complain of right lower quadrant abdominal pain. He reports his pain has increased during this admissi on. He now is rating his pain about 8-10. Pain is worse with movement. His last bowel movement was about 2 days ago. He denies any nausea or vomiting. His computed tomography scan does show worsening thickening of the cecum. The cecum is becoming dilated and there is interval dilatation of the appendix. Terminal ileum wall thickening is also present. Correlate for typhlitis. This may be creating secondary changes within the appendix suggesting this may be obstructing the appendix. There are some additional mild wall thickening or incomplete distention including more proximal small bowel loops distending colon. Afebrile. WBC is trending up from 11.8-12.2 Hgb is 11.4 platelets 238 seconds 139 potassium 3.7 creatinine 1.1 glucose 113 PHYSICAL EXAM: VITAL SIGNS: Reviewed. GENERAL: Well-developed in no acute distress. HEENT: No sclera icterus. Extraocular movements grossly intact. Moist buccal mucosa. Head is atraumatic, normocephalic. ABDOMEN: Soft. Nondistended. Tender with palpation in the right lower quadrant NEUROLOGIC: Alert and oriented. Cranial nerves II through XII grossly intact. ASSESSMENT: 1. Right lower quadrant abdominal pain with worsening pain and CAT scan showing worsening thickening of the cecum. The cecum is becoming dilated and there is interval dilatation of the appendix PLAN: -Patient scheduled for right colectomy today with Dr. Gonzalez -Keep patient nothing by mouth -Continue supportive care -Continue antibiotics Physician Inside Sales Consultant note has been reviewed by physician. Signing provider agrees with the documented findings, assessment, and plan of care. Objective - Vital Signs Vital signs: Vital Signs Temp 98.5 F 02/04/23 07:47 Pulse 88 02/04/23 07:47 Resp 17 02/04/23 08:48 BP 153/78 02/04/23 07:47 Pulse Ox 96 02/04/23 07:47 FiO2 Intake & Output 02/03/23 02/04/23 02/04/23 18:59 06:59 18:59 Other: Voiding Method Toilet Toilet Toilet Urinal Urinal # Voids 2 - Labs CBC & Chem 7: 02/04/23 04:36 02/04/23 04:36 Labs: Abnormal Lab Results - Last 24 Hours (Table) 02/03/23 02/03/23 02/04/23 Range/Units 16:56 23:31 04:36 WBC 12.20 H (4.50-10.00) X 10*3/uL RBC 3.82 L (4.40-5.60) X 10*6/uL Hgb 11.4 L (13.0-17.0) g/dL Hct 36.2 L (39.6-50.0) % MCHC 31.5 L (32.0-37.0) g/dL BUN (9.0-27.0) mg/dL BUN/Creatinine Ratio (12.00-20.00) Ratio Glucose (70-110) mg/dL POC Glucose (mg/dL) 123 H 114 H (70-110) mg/dL ALT (10-49) U/L Total Protein (6.2-8.2) g/dL Albumin (3.8-4.9) g/dL Albumin/Globulin Ratio (1.60-3.17) g/dL 02/04/23 02/04/23 02/04/23 Range/Units 04:36 05:38 11:47 WBC (4.50-10.00) X 10*3/uL RBC (4.40-5.60) X 10*6/uL Hgb (13.0-17.0) g/dL Hct (39.6-50.0) % MCHC (32.0-37.0) g/dL BUN 7.2 L (9.0-27.0) mg/dL BUN/Creatinine Ratio 6.55 L (12.00-20.00) Ratio Glucose 113 H (70-110) mg/dL POC Glucose (mg/dL) 115 H 119 H (70-110) mg/dL ALT 9 L (10-49) U/L Total Protein 5.8 L (6.2-8.2) g/dL Albumin 3.3 L (3.8-4.9) g/dL Albumin/Globulin Ratio 1.32 L (1.60-3.17) g/dL Microbiology - Last 24 Hours (Table) 02/01/23 18:05 Blood Culture - Preliminary Blood 02/01/23 18:20 Blood Culture - Preliminary Blood
[2023-02-04] MEDS ORDERED: LACTATED RINGERS 1,000 ML IV ONE ×4 (15:42→20:00)
[2023-02-04] MEDS ORDERED: ONDANSETRON 4 MG/2 ML VIAL ONE (15:56)
[2023-02-04] MEDS ORDERED: ONDANSETRON 4 MG/2 ML VIAL IVP ONE (15:59)
[2023-02-04] MEDS ORDERED: DEXAMETHASONE SOD PHOSPHATE 4 MG/ML 1 ML VIAL IVP ONE (15:59)
[2023-02-04] MEDS ORDERED: MIDAZOLAM 2 MG/2 ML VIAL IVP ONE (16:13)
[2023-02-04] MEDS ORDERED: NEOSTIGMINE 1 MG/ML 10 ML VIAL ONE (16:28)
[2023-02-04] MEDS ORDERED: SUCCINYLCHOLINE CHLORIDE 200 MG/10 ML VIAL IV ONE (16:28)
[2023-02-04] MEDS ORDERED: fentaNYL (PF) 50 MCG/ML 2 ML AMP ONE (16:28)
[2023-02-04] MEDS ORDERED: ROCURONIUM 10 MG/ML (5 ML VIAL) IV ONE (16:28)
[2023-02-04] MEDS ORDERED: HEPARIN SODIUM,PORCINE 10,000 UNIT/ML 1 ML VIAL ONE (16:28)
[2023-02-04] MEDS ORDERED: ESMOLOL 100 MG/10 ML VIAL ONE (16:28)
[2023-02-04] MEDS ORDERED: LIDOCAINE 2% INJ 20 MG/ML (2 ML VIAL) ONE (16:28)
[2023-02-04] MEDS ORDERED: GLYCOPYRROLATE 0.2 MG/ML 2 ML VIAL ONE (16:28)
[2023-02-04] MEDS ORDERED: KETAMINE 10 MG/ML 20 ML VIAL ONE (16:28)
[2023-02-04] MEDS ORDERED: PROPOFOL 10 MG/ML 20 ML VIAL IV ONE (16:28)
[2023-02-04] MEDS ORDERED: NALBUPHINE 10 MG/ML (10 ML MDV) IV PRN (16:35)
[2023-02-04] MEDS ORDERED: MORPHINE SULFATE 2 MG/ML SYRINGE IVP PRN (16:35)
[2023-02-04] MEDS ORDERED: NALOXONE 0.4 MG/ML 1 ML VIAL IV PRN ×2 (16:35→17:47)
[2023-02-04] MEDS ORDERED: ONDANSETRON 4 MG/2 ML VIAL IVP PRN ×2 (16:35→17:47)
[2023-02-04] MEDS ORDERED: diphenhydrAMINE 50 MG/ML 1 ML VIAL IVP PRN (16:35)
--- NOTE | 2023-02-04 16:35 | P.ANPRN ---
Procedure Note - Anesthesia - Epidural/Spinal Epidural Continuous Time Out Performed: Yes Date of Procedure: 02/04/23 (7138) Procedure Start Time: 16:14 Procedure Stop Time: 16:22 Location of Patient: PreOp Indication: Acute Post-Operative Pain, Requested by Surgeon (DENA) Sedation Type: Sedate with meaningful contact maintained Preparation: Sterile Prep Number of Attempts: 2 (first attempt +heme) Position: Sitting Catheter Depth at Skin (cm): 11 Catheter: Indwelling Needle Guage: 18 Injectate: Test dose negative Narrative: L1-2 Blood Aspirated: No Pain Paresthesia on Injection Noted: No Events: Uneventful and Well Tolerated
[2023-02-04] MEDS ORDERED: ceFAZolin 1,000 MG VIAL IVPB ONE (16:48)
[2023-02-04] MEDS ORDERED: HYDROmorphone 0.5 MG/0.5 ML SYRINGE IVP PRN (17:47)
[2023-02-04] MEDS ORDERED: HYDROmorphone 1 MG/ML 1 ML SYRINGE IVP PRN (17:47)
--- NOTE | 2023-02-04 17:47 | P.OP ---
Date of Procedure: 02/04/23 Preoperative Diagnosis: Right colon inflammation Postoperative Diagnosis: Appendicitis with abscess Procedure(s) Performed: Limited right colectomy with ileocolonic anastomosis Anesthesia: JUSTIN Surgeon: Chuy Gonzalez Estimated Blood Loss (ml): 100 Pathology: other (Ileocolectomy) Condition: stable Disposition: PACU Description of Procedure: The patient's placed on the operating table in the supine position. He received general endotracheal tube anesthesia. His abdomen was prepped and draped in the usual sterile fashion. The abdomen was palpated. There was a mass palpated right lower quadrant. The skin was incised in the midline. Using electrocautery and sharp dissection the abdominal wall was entered. Is entered. Upon Jessica cavity. There is an abscess between the cecum and abdominal wall. This was cultured. The right colon was brought up in the wound. And then it appeared that there was appendicitis with a perforation of the base the appendix. This point decided perform a limited ileocolectomy. The terminal ileum was transected with a GI stapler. And then the right colon was transected with a GI stapler. Then using the Enseal device mesentery the bowel was divided. The specimens of pathology. A [id number] functional end-to-end staple S was then created using AMARILIS and TA stapler. 3-0 GI silk sutures used as a crotch stitch. The abdomen was then irrigated with 3 L normal saline. There is no bleeding seen. A JAMEY drain is placed in the right lower quadrant brought through separate stab incision in the right lower quadrant. The fascia was then closed with looped #1 PDS suture. Skin was closed dinorah. A prevena wound system was placed on top of the close skin. Patient tolerated the procedure she will sent to recovery room in stable condition.
[2023-02-04] MEDS: ROPIVACAINE 250 MG, HYDROMORPHONE (PF) 5 MG in SODIUM CHLORIDE 0.9% 200 ML EPIDURAL PRN (17:55)
[2023-02-04] MEDS ORDERED: HYDROmorphone 0.5 MG/0.5 ML SYRINGE IVP ONE ×2 (18:54→19:59)
[2023-02-04] MEDS ORDERED: METOPROLOL TARTRATE 5 MG/5 ML VIAL IVP ONE (21:22)
[2023-02-05] MEDS ORDERED: HEPARIN SODIUM,PORCINE/PF 5,000 UNIT/0.5 ML SYRINGE SQ SCH
[2023-02-05 00:06] LABS: Glucose,Whole Blood 132 mg/dL (70-110)
[2023-02-05] MEDS: DEXTROSE 5%-0.45% NACL 1,000 ML IV SCH ×2 (05:32→14:34)
[2023-02-05 06:03] LABS: Glucose,Whole Blood 127 mg/dL (70-110)
[2023-02-05] MEDS: PANTOPRAZOLE 40 MG/10 ML VIAL IVP SCH (08:57)
[2023-02-05] MEDS: HEPARIN SODIUM,PORCINE/PF 5,000 UNIT/0.5 ML SYRINGE SQ SCH ×3 (08:57→23:11)
[2023-02-05] MEDS: MULTIVITAMINS, THERA 1 EACH TAB PO SCH (08:57)
[2023-02-05] MEDS: PIPERACILLIN-TAZOBACTAM 3.375 GM in SODIUM CHLORIDE 0.9% 100 ML IVPB SCH ×3 (08:59→23:11)
--- NOTE | 2023-02-05 09:19 | P.PN ---
Progress Note - Text Progress Note Date: 02/05/23 (767) Anesthesia Postop day 1 Status post right colectomy with epidural Day 2 Patient seen and examined. Doing well without complaint. VAS for out of 10rest able. No nausea vomiting or pruritus. Ropivacaine 0.1% with Dilaudid 20 mcg/mL at 8 mL an hour. Objective: Vital signs reviewed Lungs: Good chest excursion Abdomen: Appears nondistended Other: Epidural Site Intact without induration. Dressing intact Neuro: No apparent motor block. Sensory within normal limits. Assessment: Status post right colectomy postop day 1 Plan: Continue current care with your medical management. Anticipate reevaluation tomorrow.
--- NOTE | 2023-02-05 13:39 | P.PN ---
Subjective Progress Note Date: 02/05/23 Hospital course: Patient is a very pleasant 72-year-old male with a past medical history of obst ructive sleep apnea and osteoarthritis status post right hip replacement. He presented to the emergency department secondary to right lower quadrant abdominal pain. Patient reported pain began 2-3 days ago and progressively worsened. Patient went to his PCP for evaluation and was sent to the hospital for a CT abdomen and pelvis. Outpatient CT abdomen and pelvis with contrast was reviewed and revealed moderate generalized enterocolitis with the greatest degree of small bowel wall thickening in right lower quadrant, inflammatory thickening also extending into the cecum and appendix as well, primary enterocolitis with secondary inflammation of the appendix is reported, acute appendicitis is not ruled out, also reported long segment colitis is noted to transverse colon, moderate inflammatory edema and fat stranding in the right lower quadrant along with mild pelvic free fluid likely reactive, circumferential bladder wall thickening possibly representing chronic bilateral hypertrophia versus cystitis, and prostamegaly with prostate reported to be 5.3 cm wide. Patient was sent to ER secondary to these findings. Patient has been admitted under our services with consultation to general surgery team. Patient had right colectomy done by the primary team. Patient states that he is having some abdominal soreness. He says that he tolerated his clear liquid diet. He states there is also passing gas. 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 Patient on 96% on 2 L and mildly tachycardic in the 100s Data reviewed: A.m. labs are pending Enterocolitis Appendicitis Plan Pain control. IV morphine 2 mg every 3 hours when necessary Patient encouraged to use the incentive spirometer Patient also encouraged to ambulate Resume IV Zosyn 3.375 mg every 8 hours DVT prophylaxis: Subcu heparin Anticipated discharge: 24-48 hours once cleared by general surgery Anticipated discharge place: Home Objective - Vital Signs Vital signs: Vital Signs Temp 97.9 F 02/05/23 07:02 Pulse 105 H 02/05/23 07:02 Resp 18 02/05/23 07:02 BP 126/74 02/05/23 07:02 Pulse Ox 96 02/05/23 09:16 FiO2 Intake & Output 02/04/23 02/05/23 02/05/23 18:59 06:59 18:59 Intake Total 1999 800 Output Total 325 370 Balance 1675 430 Intake: IV 1999 800 Output: Drainage 40 Right Lower Abdomen 40 Urine 200 300 Estimated Blood Loss 125 30 Other: Voiding Method Toilet Indwelling Catheter Urinal - Labs CBC & Chem 7: 02/04/23 04:36 02/04/23 04:36 Labs: Abnormal Lab Results - Last 24 Hours (Table) 02/05/23 02/05/23 Range/Units 00:05 06:02 POC Glucose (mg/dL) 132 H 127 H (70-110) mg/dL Microbiology - Last 24 Hours (Table) 02/01/23 18:05 Blood Culture - Preliminary Blood 02/01/23 18:20 Blood Culture - Preliminary Blood 02/04/23 17:45 Wound Culture - Preliminary Abdomen
[2023-02-05 14:23] LABS: HGB 11.7 g/dL (13.0-17.0); MCH 29.9 pg (27.0-32.0); MCHC 31.6 g/dL (32.0-37.0); MCV 94.6 fL (80.0-97.0); Mean Platelet Volume 10.4 fL (9.5-12.2); NRBC Per 100 WBC 0 /100 WBCS (0.0-0.0); Platelet Count 290 X 10*3/uL (140-440); RBC 3.91 X 10*6/uL (4.40-5.60); RDW 14.3 % (11.5-14.5)
[2023-02-05 14:46] LABS: African American GFR (CKD) 76.2 (60.0-200.0); Albumin 2.9 g/dL (3.8-4.9); Albumin/Globulin Ratio 1.26 (1.60-3.17); Anion Gap 10.7 mmol/L (10.00-18.00); BUN/Creat Ratio 8.82 Ratio (12.00-20.00); Blood Urea Nitrogen 9.7 mg/dL (9.0-27.0); Calcium 8.5 mg/dL (8.7-10.3); Carbon Dioxide 25.3 mmol/L (20.0-27.5); Globulin 2.3 g/dL (1.6-3.3); Non-African American GFR(CKD) 65.8 (60.0-200.0); Potassium 4.4 mmol/L (3.5-5.5); Total Bilirubin 0.5 mg/dL (0.30-1.20); Total Protein 5.2 g/dL (6.2-8.2)
[2023-02-05] MEDS: ACETAMINOPHEN TAB 325 MG TAB PO PRN (15:29)
--- NOTE | 2023-02-05 15:30 | P.PN ---
Subjective Progress Note Date: 02/05/23 CHIEF COMPLAINT: Right lower quadrant abdominal pain HISTORY OF PRESENT ILLNESS: Postop day #1 status post limited right colectomy with ileocolonic anastomosis for appendicitis with abscess. Patient has e pidural for pain control. Patient reports that his pain is controlled. He denies any nausea or vomiting. He is having flatus. Afebrile. Mildly tachycardic. Urine output adequate. WBC is 12.7 Hgb is 11.7 platelets 290 sodium is 138 potassium 4.4 creatinine 1.1 PHYSICAL EXAM: VITAL SIGNS: Reviewed. GENERAL: Well-developed in no acute distress. HEENT: No sclera icterus. Extraocular movements grossly intact. Moist buccal mucosa. Head is atraumatic, normocephalic. ABDOMEN: Soft. Mildly distended. Prevana wound vac in tact. JAMEY drain with 40 mL serosanguineous output NEUROLOGIC: Alert and oriented. Cranial nerves II through XII grossly intact. ASSESSMENT: 1. Appendicitis with abscess status post limited right colectomy with ileocolonic anastomosis PLAN: -Continue epidural for pain control -Continue Suero catheter -Continue Benadryl as needed for itching -Advance diet to full liquids -Incentive spirometer ordered -Increase activity level -Continue antibiotics -GI prophylaxis Protonix and DVT prophylaxis subcu heparin Physician Investigator Claims note has been reviewed by physician. Signing provider agrees with the documented findings, assessment, and plan of care. Objective - Vital Signs Vital signs: Vital Signs Temp 97.9 F 02/05/23 07:02 Pulse 105 H 02/05/23 07:02 Resp 18 02/05/23 07:02 BP 126/74 02/05/23 07:02 Pulse Ox 96 02/05/23 09:16 FiO2 Intake & Output 02/04/23 02/05/23 02/05/23 18:59 06:59 18:59 Intake Total 1999 800 Output Total 325 370 Balance 1675 430 Intake: IV 1999 800 Output: Drainage 40 Right Lower Abdomen 40 Urine 200 300 Estimated Blood Loss 125 30 Other: Voiding Method Toilet Indwelling Catheter Urinal - Labs CBC & Chem 7: 02/05/23 06:36 02/05/23 06:36 Labs: Abnormal Lab Results - Last 24 Hours (Table) 02/05/23 02/05/23 02/05/23 Range/Units 00:05 06:02 06:36 WBC 12.70 H (4.50-10.00) X 10*3/uL RBC 3.91 L (4.40-5.60) X 10*6/uL Hgb 11.7 L (13.0-17.0) g/dL Hct 37.0 L (39.6-50.0) % MCHC 31.6 L (32.0-37.0) g/dL BUN/Creatinine Ratio (12.00-20.00) Ratio Glucose (70-110) mg/dL POC Glucose (mg/dL) 132 H 127 H (70-110) mg/dL Calcium (8.7-10.3) mg/dL Total Protein (6.2-8.2) g/dL Albumin (3.8-4.9) g/dL Albumin/Globulin Ratio (1.60-3.17) g/dL 02/05/23 Range/Units 06:36 WBC (4.50-10.00) X 10*3/uL RBC (4.40-5.60) X 10*6/uL Hgb (13.0-17.0) g/dL Hct (39.6-50.0) % MCHC (32.0-37.0) g/dL BUN/Creatinine Ratio 8.82 L (12.00-20.00) Ratio Glucose 129 H (70-110) mg/dL POC Glucose (mg/dL) (70-110) mg/dL Calcium 8.5 L (8.7-10.3) mg/dL Total Protein 5.2 L (6.2-8.2) g/dL Albumin 2.9 L (3.8-4.9) g/dL Albumin/Globulin Ratio 1.26 L (1.60-3.17) g/dL Microbiology - Last 24 Hours (Table) 02/01/23 18:05 Blood Culture - Preliminary Blood 02/01/23 18:20 Blood Culture - Preliminary Blood 02/04/23 17:45 Wound Culture - Preliminary Abdomen
[2023-02-05 16:26] LABS: Glucose,Whole Blood 128 mg/dL (70-110)
[2023-02-05] MEDS: ROPIVACAINE 250 MG, HYDROMORPHONE (PF) 5 MG in SODIUM CHLORIDE 0.9% 200 ML EPIDURAL PRN (18:27)
--- NOTE | 2023-02-05 18:30 | CDI ---
Documentation Clarification Form Date: 02/05/2023 6:27:34 PM From: April Robles RN, CCDS Admit Date: 02/01/2023 7:06:00 PM Patient Name: Evan Lane Visit Number: [id number] Discharge Date: ATTENTION: The Clinical Documentation Specialists (CDI) and [facility] Coding Staff appreciate your assistance in clarifying documentation. Please respond to the clarification below the line at the bottom and electronically sign. The CDI & [facility] Coding staff will review the response and follow-up if needed. Please note: Queries are made part of the Legal Health Record. If you have any questions, please contact the author of this message via ITS. Dr. Xander Henry The patient has Sepsis documented in the ED clinical impression. Based on this information and the findings below, is there an additional diagnosis that is clinically appropriate for this patient? History/Risk Factors: None reported Clinical Indicators: 72-year-old male present with right lower quadrant abdominal pain for the past couple of days. Ct of his abdomen and pelvis was concerning for enterocolitis and possible secondary appendicitis. 02/01 VS: 144/78 108 20 97.7 96% RA 02/02 Labs: WBC 12.5, Neutrophils 11.1 02/01 Blood cultures: Pending, No growth after 72 hours 02/01 CT ABD/Pelvis: worsening thickening of cecum. The cecum is becoming dilated and there is interval dilation if the appendix. Terminal ileum wall thickening is also present. Treatment: Zosyn 3.375 MG IVPB Q 8 HRS 02/01-116 .9 NS 1,000 ML/HR IV 02/01 Is there an additional diagnosis that is clinically appropriate for this patient? [ X ] Sepsis, present on admission [ ] Sepsis ruled out [ ] Severe Sepsis with organ failure [ ] Other, please specify [ ] Unable to determine SIRS Criteria: 2 or more of the following may indicate SIRS Temperature < 96.8F (36C) or > 101.0F (38.3C) Heart Rate > 90 bpm Respiratory Rate > 20 breaths/min or PaCO2 < 32 mmHg White Blood Cell Count > 12,000 or < 4,000 cells/mm3 or > 10% bands (Template Last Reviewed: September 2022) MTDD
--- NOTE | 2023-02-05 23:57 | XR ---
EXAMINATION TYPE: XR chest 1V portable DATE OF EXAM: 02/05/2023 CLINICAL HISTORY: Mild wheezing. TECHNIQUE: Single AP portable frontal semiupright view of the chest is obtained. COMPARISON: Chest x-ray 2012 FINDINGS: The osseous structures are demineralized. Mild cardiomegaly is present. Increased interstit ial markings with tiny bilateral pleural effusions. No pneumothorax is seen bilaterally. Contrast fro m recent CT exam noted in some of the bowel loops IMPRESSION: Possible CHF exacerbation as there is mild cardiomegaly with mild interstitial edema and tiny bilateral pleural effusions thought present. Correlate clinically.
[2023-02-06 00:22] LABS: Glucose,Whole Blood 113 mg/dL (70-110)
[2023-02-06] MEDS: DEXTROSE 5%-0.45% NACL 1,000 ML IV SCH ×2 (01:33→13:31)
[2023-02-06 05:34] LABS: HCT 37.5 % (39.0-53.0); HGB 11.9 gm/dL (13.0-17.5); MCH 30.6 pg (25.0-35.0); MCHC 31.8 g/dL (31.0-37.0); MCV 96.4 fL (80.0-100.0); Mean Platelet Volume 7.6; Platelet Count 279 k/uL (150-450); RBC 3.89 m/uL (4.30-5.90); RDW 13.4 % (11.5-15.5); WBC 10.9 k/uL (3.8-10.6)
[2023-02-06 05:46] LABS: ALT 20 U/L (4-49); AST 32 U/L (17-59); African American GFR (CKD) 80 (>60 ml/min/1.73 sqM); Albumin 2.5 g/dL (3.5-5.0); Alkaline Phosphatase 65 U/L (38-126); Anion Gap 7 mmol/L; Blood Urea Nitrogen 9 mg/dL (9-20); Carbon Dioxide 26 mmol/L (22-30); Chloride 98 mmol/L (98-107); Globulin 2.5 g/dL; Glucose 96 mg/dL (74-99); Non-African American GFR(CKD) 69 (>60 ml/min/1.73 sqM); Sodium 131 mmol/L (137-145); Total Bilirubin 0.8 mg/dL (0.2-1.3)
[2023-02-06 05:54] LABS: Glucose,Whole Blood 92 mg/dL (70-110)
--- NOTE | 2023-02-06 07:07 | P.PN ---
Progress Note - Text Progress Note Date: 02/06/23 Postoperative day #2 status post right colectomy epidural catheter placed for postoperative analgesia, patient doing well epidural site okay, patient currently on combination of epidural infusion solution of Ropivacaine 0.0625% and Dilaudid 20 g per mL the infusion rate at 8 ml per hour , patient had no motor deficit epidural site okay , vital signs stable ,VAS 3 /10 , Assessment and plan= post operative day #2 patient doing well ,pain well controlled , there is no anesthesia related complications
[2023-02-06] MEDS: PANTOPRAZOLE 40 MG/10 ML VIAL IVP SCH (08:36)
[2023-02-06] MEDS: PIPERACILLIN-TAZOBACTAM 3.375 GM in SODIUM CHLORIDE 0.9% 100 ML IVPB SCH ×3 (08:37→23:04)
[2023-02-06] MEDS: HEPARIN SODIUM,PORCINE/PF 5,000 UNIT/0.5 ML SYRINGE SQ SCH ×4 (08:37→23:11)
[2023-02-06] MEDS: MULTIVITAMINS, THERA 1 EACH TAB PO SCH (08:37)
[2023-02-06] MEDS ORDERED: FUROSEMIDE 10 MG/ML 2 ML VIAL IV ONE (09:20)
--- NOTE | 2023-02-06 11:48 | P.PN ---
Subjective Progress Note Date: 02/06/23 Hospital course: Patient is a very pleasant 72-year-old male with a past medical history of obst ructive sleep apnea and osteoarthritis status post right hip replacement. He presented to the emergency department secondary to right lower quadrant abdominal pain. Patient reported pain began 2-3 days ago and progressively worsened. Patient went to his PCP for evaluation and was sent to the hospital for a CT abdomen and pelvis. Outpatient CT abdomen and pelvis with contrast was reviewed and revealed moderate generalized enterocolitis with the greatest degree of small bowel wall thickening in right lower quadrant, inflammatory thickening also extending into the cecum and appendix as well, primary enterocolitis with secondary inflammation of the appendix is reported, acute appendicitis is not ruled out, also reported long segment colitis is noted to transverse colon, moderate inflammatory edema and fat stranding in the right lower quadrant along with mild pelvic free fluid likely reactive, circumferential bladder wall thickening possibly representing chronic bilateral hypertrophia versus cystitis, and prostamegaly with prostate reported to be 5.3 cm wide. Patient was sent to ER secondary to these findings. Patient has been admitted under our services with consultation to general surgery team. Patient had right colectomy done by general surgery. Patient this morning was on epidural drip for his pain. Patient stated that he is tolerating his full liquid diet. Patient says that he got into a chair yesterday however required 2 person assist. 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 Patient on 96% on 2 L and mildly tachycardic in the 100s Data reviewed: Labs reviewed and are unremarkable. We'll stop trending labs. Cultures from surgery are growing gram-negative bacilli Appendicitis with abscess status post right colectomy Plan Pain control. IV morphine 2 mg every 3 hours when necessary. Patient also on epidural drip Patient encouraged to use the incentive spirometer Patient also encouraged to ambulate Resume IV Zosyn 3.375 mg every 8 hours. Follow up on cultures from surgery PT OT consult. Patient may need placement DVT prophylaxis: Subcu heparin Anticipated discharge: 2-[address]: snf facility versus home with home care Objective - Vital Signs Vital signs: Vital Signs Temp 99.2 F 02/06/23 08:00 Pulse 106 H 02/06/23 08:00 Resp 17 02/06/23 08:00 BP 120/77 02/06/23 08:00 Pulse Ox 90 L 02/06/23 08:44 FiO2 Intake & Output 02/05/23 02/06/23 02/06/23 18:59 06:59 18:59 Intake Total 200 Output Total 30 770 Balance -30 -570 Intake: Intake, IV Titration 200 Amount Piperacillin-Tazobactam 3 200 .375 gm In Sodium Chloride 0.9% 100 ml @ 25 mls/hr IVPB Q8HR [facility] Rx# :[id number] Output: Drainage 30 20 Right Lower Abdomen 30 20 Urine 750 Other: Voiding Method Indwelling Catheter Indwelling Catheter Indwelling Catheter - Labs CBC & Chem 7: 02/06/23 05:06 02/06/23 05:06 Labs: Abnormal Lab Results - Last 24 Hours (Table) 02/05/23 02/05/23 02/05/23 Range/Units 06:36 06:36 16:24 WBC 12.70 H (4.50-10.00) X 10*3/uL RBC 3.91 L (4.40-5.60) X 10*6/uL Hgb 11.7 L (13.0-17.0) g/dL Hct 37.0 L (39.6-50.0) % MCHC 31.6 L (32.0-37.0) g/dL Sodium (137-145) mmol/L BUN/Creatinine Ratio 8.82 L (12.00-20.00) Ratio Glucose 129 H (70-110) mg/dL POC Glucose (mg/dL) 128 H (70-110) mg/dL Calcium 8.5 L (8.7-10.3) mg/dL Total Protein 5.2 L (6.2-8.2) g/dL Albumin 2.9 L (3.8-4.9) g/dL Albumin/Globulin Ratio 1.26 L (1.60-3.17) g/dL 02/06/23 02/06/23 02/06/23 Range/Units 00:20 05:06 05:06 WBC 10.9 H (4.50-10.00) X 10*3/uL RBC 3.89 L (4.40-5.60) X 10*6/uL Hgb 11.9 L (13.0-17.0) g/dL Hct 37.5 L (39.6-50.0) % MCHC (32.0-37.0) g/dL Sodium 131 L (137-145) mmol/L BUN/Creatinine Ratio (12.00-20.00) Ratio Glucose (70-110) mg/dL POC Glucose (mg/dL) 113 H (70-110) mg/dL Calcium 8.0 L (8.7-10.3) mg/dL Total Protein 5.0 L (6.2-8.2) g/dL Albumin 2.5 L (3.8-4.9) g/dL Albumin/Globulin Ratio (1.60-3.17) g/dL Microbiology - Last 24 Hours (Table) 02/01/23 18:05 Blood Culture - Preliminary Blood 02/01/23 18:20 Blood Culture - Preliminary Blood 02/04/23 17:45 Gram Stain - Preliminary Abdomen Wound Culture - Preliminary Gram Neg Bacilli
--- NOTE | 2023-02-06 12:36 | P.PN ---
Subjective Progress Note Date: 02/06/23 CHIEF COMPLAINT: Right lower quadrant abdominal pain HISTORY OF PRESENT ILLNESS: Postop day #2 status post limited right colectomy with ileocolonic anastomosis for appendicitis with abscess. Patient has e pidural for pain control. Patient reports his pain is controlled. He had some evidence of fluid overload. IV fluids discontinued from medicine service. Lasix 10 mg IV push 1 ordered for fluid overload. Patient has had no flatus today. Denies any nausea or vomiting. Afebrile. White count did decrease from 12-10.9 hgb 11.9. JAMEY drain with a 20 mL serosanguineous output PHYSICAL EXAM: VITAL SIGNS: Reviewed. GENERAL: Well-developed in no acute distress. HEENT: No sclera icterus. Extraocular movements grossly intact. Moist buccal mucosa. Head is atraumatic, normocephalic. ABDOMEN: Soft. Prevana wound vac in tact. JAMEY drain with serosanguineous output NEUROLOGIC: Alert and oriented. Cranial nerves II through XII grossly intact. ASSESSMENT: 1. Appendicitis with abscess status post limited right colectomy with ileocolonic anastomosis PLAN: -Epidural and Suero catheter to be discontinued tomorrow -Continue to go slow with a full liquid diet -IV Lasix 10 mg 1 ordered for fluid overload -IV fluids discontinued and medicine service -Incentive spirometer ordered -Increase activity level -Continue antibiotics -Consult PT OT -GI prophylaxis Protonix and DVT prophylaxis subcu heparin Physician Medical Office Administrator note has been reviewed by physician. Signing provider agrees with the documented findings, assessment, and plan of care. Objective - Vital Signs Vital signs: Vital Signs Temp 99.2 F 02/06/23 08:00 Pulse 106 H 02/06/23 08:00 Resp 18 02/06/23 08:00 BP 120/77 02/06/23 08:00 Pulse Ox 90 L 02/06/23 08:44 FiO2 Intake & Output 02/05/23 02/06/23 02/06/23 18:59 06:59 18:59 Intake Total 200 Output Total 30 770 Balance -30 -570 Intake: Intake, IV Titration 200 Amount Piperacillin-Tazobactam 3 200 .375 gm In Sodium Chloride 0.9% 100 ml @ 25 mls/hr IVPB Q8HR [facility] Rx# :[id number] Output: Drainage 30 20 Right Lower Abdomen 30 20 Urine 750 Other: Voiding Method Indwelling Catheter Indwelling Catheter - Labs CBC & Chem 7: 02/06/23 05:06 02/06/23 05:06 Labs: Abnormal Lab Results - Last 24 Hours (Table) 02/05/23 02/05/23 02/05/23 Range/Units 06:36 06:36 16:24 WBC 12.70 H (4.50-10.00) X 10*3/uL RBC 3.91 L (4.40-5.60) X 10*6/uL Hgb 11.7 L (13.0-17.0) g/dL Hct 37.0 L (39.6-50.0) % MCHC 31.6 L (32.0-37.0) g/dL Sodium (137-145) mmol/L BUN/Creatinine Ratio 8.82 L (12.00-20.00) Ratio Glucose 129 H (70-110) mg/dL POC Glucose (mg/dL) 128 H (70-110) mg/dL Calcium 8.5 L (8.7-10.3) mg/dL Total Protein 5.2 L (6.2-8.2) g/dL Albumin 2.9 L (3.8-4.9) g/dL Albumin/Globulin Ratio 1.26 L (1.60-3.17) g/dL 02/06/23 02/06/23 02/06/23 Range/Units 00:20 05:06 05:06 WBC 10.9 H (4.50-10.00) X 10*3/uL RBC 3.89 L (4.40-5.60) X 10*6/uL Hgb 11.9 L (13.0-17.0) g/dL Hct 37.5 L (39.6-50.0) % MCHC (32.0-37.0) g/dL Sodium 131 L (137-145) mmol/L BUN/Creatinine Ratio (12.00-20.00) Ratio Glucose (70-110) mg/dL POC Glucose (mg/dL) 113 H (70-110) mg/dL Calcium 8.0 L (8.7-10.3) mg/dL Total Protein 5.0 L (6.2-8.2) g/dL Albumin 2.5 L (3.8-4.9) g/dL Albumin/Globulin Ratio (1.60-3.17) g/dL Microbiology - Last 24 Hours (Table) 02/04/23 17:45 Gram Stain - Preliminary Abdomen Wound Culture - Preliminary Gram Neg Bacilli 02/01/23 18:05 Blood Culture - Preliminary Blood 02/01/23 18:20 Blood Culture - Preliminary Blood
[2023-02-06] MEDS: ROPIVACAINE 250 MG, HYDROMORPHONE (PF) 5 MG in SODIUM CHLORIDE 0.9% 200 ML EPIDURAL PRN (20:41)
[2023-02-06] MEDS: IPRATROPIUM-ALBUTEROL 3 ML NEB INHALATION PRN (21:12)
[2023-02-07] MEDS ORDERED: HYDROmorphone 1 MG/ML 1 ML SYRINGE IVP PRN (07:56)
[2023-02-07] MEDS ORDERED: HYDROcodone/APAP 5-325MG 1 EACH TAB PO PRN (07:56)
[2023-02-07] MEDS: PANTOPRAZOLE 40 MG/10 ML VIAL IVP SCH (08:30)
[2023-02-07] MEDS: PIPERACILLIN-TAZOBACTAM 3.375 GM in SODIUM CHLORIDE 0.9% 100 ML IVPB SCH ×2 (08:56→16:03)
[2023-02-07] MEDS: MULTIVITAMINS, THERA 1 EACH TAB PO SCH (08:56)
--- NOTE | 2023-02-07 10:02 | P.PN ---
Progress Note - Text Progress Note Date: 02/07/23 (0792) Anesthesia Postop day #3 Status post right colectomy with epidural day #4 Patient seen and examined. Doing well without complaint. VAS 5 out of 10. Goes up to 8 out of 10 with movement. No nausea or vomiting. Mild pruritus. Ropivacaine 0.1% with Dilaudid 20 mcg/mL at 8 mL an hour. Objective: Vital signs reviewed Lungs: Good chest excursion Abdomen: Appears nondistended Other: Epidural Site Intact without induration. Dressing intact Neuro: No apparent motor block. Sensory within normal limits. Assessment: Status post right colectomy postop day #3 Plan: Continue current care with your medical management. Anticipate discontinu e catheter today. Spoke with nurse. Ordered entered.
[2023-02-07 11:10] LABS: African American GFR (CKD) 76.2 (60.0-200.0); Anion Gap 9.7 mmol/L (10.00-18.00); BUN/Creat Ratio 8.46 Ratio (12.00-20.00); Blood Urea Nitrogen 9.3 mg/dL (9.0-27.0); Calcium 8.5 mg/dL (8.7-10.3); Carbon Dioxide 26.3 mmol/L (20.0-27.5); Non-African American GFR(CKD) 65.8 (60.0-200.0); Potassium 4.1 mmol/L (3.5-5.5)
[2023-02-07 13:45] VITALS: BMI 27.3
--- NOTE | 2023-02-07 14:00 | P.PN ---
Subjective Progress Note Date: 02/07/23 Hospital course: Patient is a very pleasant 72-year-old male with a past medical history of obstructive sleep apnea and osteoarthritis status post right hip replacement. He presented to the emergency department secondary to right lower quadrant abdominal pain. Patient reported pain began 2-3 days ago and progressively worsened. Patient went to his PCP for evaluation and was sent to the hospital for a CT abdomen and pelvis. Outpatient CT abdomen and pelvis with contrast was reviewed and revealed moderate generalized enterocolitis with the greatest degree of small bowel wall thickening in right lower quadrant, inflammatory thickening also extending into the cecum and appendix as well, primary enterocolitis with secondary inflammation of the appendix is reported, acute appendicitis is not ruled out, also reported long segment colitis is noted to transverse colon, moderate inflammatory edema and fat stranding in the right lower quadrant along with mild pelvic free fluid likely reactive, circumferential bladder wall thickening possibly representing chronic bilateral hypertrophia versus cystitis, and prostamegaly with prostate reported to be 5.3 cm wide. Patient was sent to ER secondary to these findings. Patient has been admitted under our services with consultation to general surgery team. Patient had right colectomy done by general surgery. Patient seen and examined at bedside. No acute events overnight. Pending discontinuation of epidural. Still having difficulty with any bowel movements or passing flatus. 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 Patient on 96% on 3 L, tachycardic up to 101, afebrile Data reviewed: Labs reviewed, sodium 135, creatinine 1.1 Abdominal cultures positive for pansensitive E. coli Appendicitis with abscess status post right colectomy Acute hypoxic respiratory failure Plan Pain control. Oral Tylenol as needed, oral [place] as needed, IV Dilaudid as needed, IV morphine as needed. Patient also on epidural drip, pending discontinuation today Likely is atelectasis secondary to abdominal surgery. Patient encouraged to use the incentive spirometer Chest x-ray ordered Patient also encouraged to ambulate On IV Zosyn 3.375 mg every 8 hours. Abdominal cultures positive for pansensitive E. coli Had direct conversation with surgery, plan for patient to regain bowel function, and then possible discharge. ID consulted per surgery Repeat CBC and BMP tomorrow DVT prophylaxis: Subcu heparin Anticipated discharge: 2-3 more days once patient regains bowel function Anticipated discharge place: Likely home with home care Objective - Vital Signs Vital signs: Vital Signs Temp 98.6 F 02/07/23 07:10 Pulse 101 H 02/07/23 07:10 Resp 17 02/07/23 07:20 BP 115/71 02/07/23 07:10 Pulse Ox 96 02/07/23 09:07 FiO2 Intake & Output 02/06/23 02/07/23 02/07/23 18:59 06:59 18:59 Intake Total 309.867 Output Total 520 Balance -210.133 Weight 79.379 kg Intake: Intake, IV Titration 309.867 Amount Piperacillin-Tazobactam 3 100 .375 gm In Sodium Chloride 0.9% 100 ml @ 25 mls/hr IVPB Q8HR [facility] Rx# :[id number] Ropivacaine 250 mg 209.867 Hydromorphone (Pf) 5 mg In Sodium Chloride 0.9% 200 ml @ Per Protocol EPIDURAL .Q0M [facility]N Rx#: [id number] Output: Drainage 20 Right Lower Abdomen 20 Urine 500 Other: Voiding Method Indwelling Catheter Indwelling Catheter Indwelling Catheter - Labs CBC & Chem 7: 02/06/23 05:06 02/07/23 06:55 Labs: Abnormal Lab Results - Last 24 Hours (Table) 02/07/23 Range/Units 06:55 Anion Gap 9.70 L (10.00-18.00) mmol/L BUN/Creatinine Ratio 8.46 L (12.00-20.00) Ratio Calcium 8.5 L (8.7-10.3) mg/dL Microbiology - Last 24 Hours (Table) 02/01/23 18:05 Blood Culture - Final Blood 02/01/23 18:20 Blood Culture - Final Blood 02/04/23 17:45 Gram Stain - Final Abdomen Wound Culture - Final Escherichia coli
[2023-02-07 14:03] LABS: Basophils # (A) 0.08 X 10*3/uL (0.00-0.10); Basophils % (A) 0.6 %; Eosinophils # (A) 0.41 X 10*3/uL (0.04-0.35); Eosinophils % (A) 3.2 %; HCT 36.2 % (39.6-50.0); HGB 11.5 g/dL (13.0-17.0); Immature Grans, Automated 0.8 %; Lymphocytes # (A) 1.23 X 10*3/uL (0.90-5.00); Lymphocytes % (A) 9.5 %; MCH 30.4 pg (27.0-32.0); MCHC 31.8 g/dL (32.0-37.0); MCV 95.8 fL (80.0-97.0); Mean Platelet Volume 10.4 fL (9.5-12.2); Monocytes % (A) 8.5 %; NRBC Per 100 WBC 0 /100 WBCS (0.0-0.0); Neutrophils # (A) 10.06 X 10*3/uL (1.80-7.70); Neutrophils % (A) 77.4 %; Platelet Count 315 X 10*3/uL (140-440); RBC 3.78 X 10*6/uL (4.40-5.60); RDW 14.1 % (11.5-14.5); WBC 12.99 X 10*3/uL (4.50-10.00)
--- NOTE | 2023-02-07 14:59 | P.PN ---
Subjective Progress Note Date: 02/07/23 CHIEF COMPLAINT: Right lower quadrant abdominal pain HISTORY OF PRESENT ILLNESS: Postop day #3 status post limited right colectomy with ileocolonic anastomosis for appendicitis with abscess. Patient reports his pain is controlled. He is scheduled for epidural and Suero catheter to be discontinued today. He denies any nausea or vomiting. He is afebrile. He has been mildly tachycardic. WBC did go up from 10.9-12.9 hemoglobin 11.5 platelets 3:15 Na 135 potassium 4.1 creatinine 1.1. Medicine service has ordered a chest x-ray. JAMEY drain 20ml serosanguineous output Patient seen and examined with Dr. Gonzalez PHYSICAL EXAM: VITAL SIGNS: Reviewed. GENERAL: Well-developed in no acute distress. HEENT: No sclera icterus. Extraocular movements grossly intact. Moist buccal mucosa. Head is atraumatic, normocephalic. ABDOMEN: Soft. Prevana wound vac in tact. JAMEY drain with serosanguineous o utput NEUROLOGIC: Alert and oriented. Cranial nerves II through XII grossly intact. ASSESSMENT: 1. Appendicitis with abscess status post limited right colectomy with ileocolonic anastomosis PLAN: -Epidural and Suero catheter discontinued today -IV Dilaudid and oral [place] added for pain control -Consult infectious disease for antibiotic recommendations due to complicated appendicitis -Continue full liquids -Incentive spirometer ordered -Increase activity level -Continue antibiotics -Consult PT OT -GI prophylaxis Protonix and DVT prophylaxis subcu heparin Physician Bull Ladle Tender note has been reviewed by physician. Signing provider agrees with the documented findings, assessment, and plan of care. Objective - Vital Signs Vital signs: Vital Signs Temp 98.6 F 02/07/23 07:10 Pulse 101 H 02/07/23 07:10 Resp 17 02/07/23 07:20 BP 115/71 02/07/23 07:10 Pulse Ox 96 02/07/23 09:07 FiO2 Intake & Output 02/06/23 02/07/23 02/07/23 18:59 06:59 18:59 Intake Total 309.867 Output Total 520 1500 Balance -210.133 -1500 Weight 79.379 kg Intake: Intake, IV Titration 309.867 Amount Piperacillin-Tazobactam 3 100 .375 gm In Sodium Chloride 0.9% 100 ml @ 25 mls/hr IVPB Q8HR [facility] Rx# :[id number] Ropivacaine 250 mg 209.867 Hydromorphone (Pf) 5 mg In Sodium Chloride 0.9% 200 ml @ Per Protocol EPIDURAL .Q0M PRN Rx#: [id number] Output: Drainage 20 Right Lower Abdomen 20 Urine 500 1500 Other: Voiding Method Indwelling Catheter Indwelling Catheter Indwelling Catheter - Labs CBC & Chem 7: 02/07/23 06:55 02/07/23 06:55 Labs: Abnormal Lab Results - Last 24 Hours (Table) 02/07/23 02/07/23 Range/Units 06:55 06:55 WBC 12.99 H (4.50-10.00) X 10*3/uL RBC 3.78 L (4.40-5.60) X 10*6/uL Hgb 11.5 L (13.0-17.0) g/dL Hct 36.2 L (39.6-50.0) % MCHC 31.8 L (32.0-37.0) g/dL Immature Gran # 0.11 H (0.00-0.04) X 10*3/uL Neutrophils # 10.06 H (1.80-7.70) X 10*3/uL Monocytes # 1.10 H (0.20-1.00) X 10*3/uL Eosinophils # 0.41 H (0.04-0.35) X 10*3/uL Anion Gap 9.70 L (10.00-18.00) mmol/L BUN/Creatinine Ratio 8.46 L (12.00-20.00) Ratio Calcium 8.5 L (8.7-10.3) mg/dL Microbiology - Last 24 Hours (Table) 02/01/23 18:05 Blood Culture - Final Blood 02/01/23 18:20 Blood Culture - Final Blood 02/04/23 17:45 Gram Stain - Final Abdomen Wound Culture - Final Escherichia coli
[2023-02-07] MEDS: HEPARIN SODIUM,PORCINE/PF 5,000 UNIT/0.5 ML SYRINGE SQ SCH (16:03)
--- NOTE | 2023-02-07 16:08 | XR ---
EXAMINATION TYPE: XR chest 1V portable DATE OF EXAM: 02/07/2023 Comparison: 02/05/2023 Clinical History: 72-year-old male hypoxia Findings: Heart normal size. Low lung volumes with crowded vascular markings. Interstitial density throughout t he right lung and patchy bibasilar opacities persist. Impression: Hypoventilatory changes. Similar mild interstitial density on the right and mild patchy bibasilar opa cities.
[2023-02-07] MEDS: IPRATROPIUM-ALBUTEROL 3 ML NEB INHALATION PRN (16:10)
--- NOTE | 2023-02-07 22:22 | P.CONS ---
History of Present Illness - Reason for Consult Consult date: 02/07/23 - History of Present Illness Patient is a 72-year-old male presenting to the hospital about a week ago on 02/01/2023 apparently the patient did have an outpatient CT concerning for possible enterocolitis/appendicitis and this patient apparently has abdominal pain going on for few days before presentation to the hospital pain has been mostly in the right lower quadrant area describing to be 6-7 10 no radiation and some nausea but no vomiting or any diarrhea patient on presentation to the hospital did have a low-grade fever of 99.7 degrees for night patient did have a elevated white count of 12.5 which initially came normal slightly up to 12.9 today kidney function has been normal liver enzymes are normal urine has been negative patient was evaluated by general surgery in this patient who is status post limited right colectomy with ileocolonic anastomosis completed on 02/04/2023 abdominal cultures obtained which grew E. coli sensitive pathogen records have been negative patient is currently being treated with Zosyn infectious disease was consulted today for further management of antibiotic therapy Past Medical History Past Medical History: No Reported History History of Any Multi-Drug Resistant Organisms: None Reported Past Surgical History: Hernia Repair, Joint Replacement Additional Past Surgical History / Comment(s): right hip , bilateral hernia Past Anesthesia/Blood Transfusion Reactions: No Reported Reaction Past Psychological History: No Psychological Hx Reported Smoking Status: Never smoker Past Alcohol Use History: None Reported Past Drug Use History: None Reported Medications and Allergies Home Medications Medication Instructions Recorded Confirmed Type Cephalexin [Keflex] 1,000 mg PO BID 02/01/23 02/01/23 History Multivitamins, Thera [Multivitamin 1 tab PO DAILY 02/01/23 02/01/23 History (formulary)] [place]-3/Dha/Epa/Fish Oil [Fish Oil 1 cap PO BID 02/01/23 02/01/23 History 1,000 mg Softgel] Prevagen 1 cap PO DAILY 02/01/23 02/01/23 History Allergies Allergy/AdvReac Type Severity Reaction Status Date / Time peanut Allergy Rapid Verified 02/02/23 02:34 Heart Rate tree nut [Nut] Allergy Rapid Verified 02/01/23 19:10 Heart Rate Sulfa (Sulfonamide AdvReac Rash/Hives Verified 02/01/23 19:10 Antibiotics) Physical Exam Vitals: Vital Signs Temp Pulse Pulse Resp BP Pulse Ox 02/07/23 09:07 96 02/07/23 09:01 97 02/07/23 07:20 17 02/07/23 07:10 98.6 F 101 H 115/71 95 02/07/23 02:05 98.9 F 61 17 114/66 92 L 02/06/23 21:20 110 H 02/06/23 21:12 112 H 02/06/23 19:58 98.8 F 114 H 17 108/68 91 L 02/06/23 14:00 97.9 F 66 17 130/71 93 L Intake and Output 02/06/23 02/07/23 02/07/23 22:59 06:59 14:59 Intake Total 209.867 100 Output Total 20 500 Balance 189.867 -400 Intake: Intake, IV Titration 209.867 100 Amount Piperacillin-Tazobactam 3 100 .375 gm In Sodium Chloride 0.9% 100 ml @ 25 mls/hr IVPB Q8HR [facility] Rx# :[id number] Ropivacaine 250 mg 209.867 Hydromorphone (Pf) 5 mg In Sodium Chloride 0.9% 200 ml @ Per Protocol EPIDURAL .Q0M PRN Rx#: [id number] Output: Drainage 20 Right Lower Abdomen 20 Urine 500 Other: Voiding Method Indwelling Catheter Indwelling Catheter Results CBC & Chem 7: 02/07/23 06:55 02/07/23 06:55 Labs: Abnormal Lab Results - Last 24 Hours (Table) 02/07/23 Range/Units 06:55 Anion Gap 9.70 L (10.00-18.00) mmol/L BUN/Creatinine Ratio 8.46 L (12.00-20.00) Ratio Calcium 8.5 L (8.7-10.3) mg/dL Microbiology - Last 24 Hours (Table) 02/01/23 18:05 Blood Culture - Final Blood 02/01/23 18:20 Blood Culture - Final Blood 02/04/23 17:45 Gram Stain - Final Abdomen Wound Culture - Final Escherichia coli Assessment and Plan Plan: 1patient presented to hospital with abdominal pain abnormal CT in this patient with evidence of appendicitis with abscess in this patient status post limited right colectomy and ileocolonic anastomosis abdominal culture positive for E. coli sensitive pathogen blood culture has been negative so far patient did have a slight worsening of the white count however no fever has been recorded 2-patient to continue Zosyn 3.375 g every 8 hours 3-repeat the CBC and inflammatory markers with a.m. lab We will follow on clinical condition and cultures to further adjust medication if needed Thank you for this consultation we will follow the patient along with you Time with Patient: Greater than 30
[2023-02-08] MEDS: HEPARIN SODIUM,PORCINE/PF 5,000 UNIT/0.5 ML SYRINGE SQ SCH ×4 (00:13→23:09)
[2023-02-08] MEDS: PIPERACILLIN-TAZOBACTAM 3.375 GM in SODIUM CHLORIDE 0.9% 100 ML IVPB SCH ×4 (00:13→23:09)
[2023-02-08] MEDS: ACETAMINOPHEN TAB 325 MG TAB PO PRN ×3 (01:56→21:31)
[2023-02-08] MEDS: MULTIVITAMINS, THERA 1 EACH TAB PO SCH (07:57)
[2023-02-08] MEDS: PANTOPRAZOLE 40 MG/10 ML VIAL IVP SCH (07:57)
[2023-02-08] MEDS: TAMSULOSIN 0.4 MG CAP.ER.24H PO SCH (09:01)
[2023-02-08] MEDS: NYSTATIN 100,000 UNIT/ML SUSP 500,000 UNIT/5 ML CUP PO SCH ×4 (09:01→21:31)
[2023-02-08 12:09] LABS: Basophils % (A) 0 %; Eosinophils # (A) 0.1 k/uL (0-0.7); Eosinophils % (A) 1 %; HCT 35.8 % (39.0-53.0); HGB 11.5 gm/dL (13.0-17.5); Lymphocytes # (A) 0.6 k/uL (1.0-4.8); Lymphocytes % (A) 5 %; MCH 30.4 pg (25.0-35.0); MCHC 32.2 g/dL (31.0-37.0); MCV 94.5 fL (80.0-100.0); Mean Platelet Volume 7.7; Monocytes # (A) 0.6 k/uL (0-1.0); Monocytes % (A) 5 %; Neutrophils % (A) 87 %; Platelet Count 347 k/uL (150-450); RBC 3.79 m/uL (4.30-5.90); RDW 13.3 % (11.5-15.5); WBC 11.6 k/uL (3.8-10.6)
[2023-02-08 12:15] LABS: African American GFR (CKD) 88 (>60 ml/min/1.73 sqM); Anion Gap 8 mmol/L; Blood Urea Nitrogen 11 mg/dL (9-20); Calcium 8.2 mg/dL (8.4-10.2); Carbon Dioxide 25 mmol/L (22-30); Chloride 104 mmol/L (98-107); Glucose 146 mg/dL (74-99); Non-African American GFR(CKD) 76 (>60 ml/min/1.73 sqM); Potassium 3.8 mmol/L (3.5-5.1); Sodium 137 mmol/L (137-145)
[2023-02-08] MEDS: IPRATROPIUM-ALBUTEROL 3 ML NEB INHALATION PRN ×2 (12:30→16:41)
--- NOTE | 2023-02-08 13:28 | P.PN ---
Subjective Progress Note Date: 02/08/23 Hospital course: Patient is a very pleasant 72-year-old male with a past medical history of obstructive sleep apnea and osteoarthritis status post right hip replacement. He presented to the emergency department secondary to right lower quadrant abdominal pain. Patient reported pain began 2-3 days ago and progressively worsened. Patient went to his PCP for evaluation and was sent to the hospital for a CT abdomen and pelvis. Outpatient CT abdomen and pelvis with contrast was reviewed and revealed moderate generalized enterocolitis with the greatest degree of small bowel wall thickening in right lower quadrant, inflammatory thickening also extending into the cecum and appendix as well, primary enterocolitis with secondary inflammation of the appendix is reported, acute appendicitis is not ruled out, also reported long segment colitis is noted to transverse colon, moderate inflammatory edema and fat stranding in the right lower quadrant along with mild pelvic free fluid likely reactive, circumferential bladder wall thickening possibly representing chronic bilateral hypertrophia versus cystitis, and prostamegaly with prostate reported to be 5.3 cm wide. Patient was sent to ER secondary to these findings. Patient has been admitted under our services with consultation to general surgery team. Patient had right colectomy done by general surgery. Patient seen and examined at bedside. No acute events overnight. Epidural discontinued. Had 1 bowel movement today. Able to tolerate oral intake. Urinary catheter was taken out yesterday. Physical exam: General examination - Alert and Oriented 3 in NAD Heart - + S1S2 no murmurs Lungs - Clear to auscultation Abdomen soft diffuse tenderness to palpate which is expected after surgery ND +ve BS, bandages over her surgical wounds are intact and dry Extremities - No edema WATER PURIFIER - Moving all 4 extremities spontaneously Psych - Calm and cooperative Assessment Data reviewed: WBC 11.6, hemoglobin 11.5, creatinine 0.98 Abdominal cultures positive for pansensitive E. coli Chest x-ray independently interpreted from 02/07, poor inspiratory effort, no opacities Appendicitis with abscess status post right colectomy Acute hypoxic respiratory failure BPH Plan Pain control. Oral Tylenol as needed, oral [place] as needed, IV Dilaudid as needed, IV morphine as needed. Likely is atelectasis secondary to abdominal surgery. Patient encouraged to use the incentive spirometer Patient also encouraged to ambulate On IV Zosyn 3.375 mg every 8 hours. Abdominal cultures positive for pansensitive E. coli ID following Repeat CBC and BMP tomorrow -Surgery planning possible discharge on Saturday DVT prophylaxis: Subcu heparin Anticipated discharge: 2-3 more days once patient regains bowel function Anticipated discharge place: Likely home with home care Objective - Vital Signs Vital signs: Vital Signs Temp 98.1 F 02/08/23 07:16 Pulse 100 02/08/23 12:40 Resp 17 02/08/23 07:16 BP 131/75 02/08/23 07:16 Pulse Ox 93 L 02/08/23 12:33 FiO2 Intake & Output 02/07/23 02/08/23 02/08/23 18:59 06:59 18:59 Output Total 1629 703 Balance -1625 -703 Weight 79.379 kg Output: Drainage 3 Right Lower Abdomen 3 Urine 1625 700 Straight 550 Other: Voiding Method Indwelling Catheter Indwelling Catheter Toilet Diaper # Voids 1 2 # Bowel Movements 1 1 - Labs CBC & Chem 7: 02/08/23 11:01 02/08/23 11:01 Labs: Abnormal Lab Results - Last 24 Hours (Table) 02/07/23 02/08/23 02/08/23 Range/Units 06:55 11:01 11:01 WBC 12.99 H 11.6 H (4.50-10.00) X 10*3/uL RBC 3.78 L 3.79 L (4.40-5.60) X 10*6/uL Hgb 11.5 L 11.5 L (13.0-17.0) g/dL Hct 36.2 L 35.8 L (39.6-50.0) % MCHC 31.8 L (32.0-37.0) g/dL Immature Gran # 0.11 H (0.00-0.04) X 10*3/uL Neutrophils # 10.06 H 10.0 H (1.80-7.70) X 10*3/uL Lymphocytes # 0.6 L (1.0-4.8) k/uL Monocytes # 1.10 H (0.20-1.00) X 10*3/uL Eosinophils # 0.41 H (0.04-0.35) X 10*3/uL Glucose 146 H (74-99) mg/dL Calcium 8.2 L (8.4-10.2) mg/dL Microbiology - Last 24 Hours (Table) 02/01/23 18:05 Blood Culture - Final Blood 02/01/23 18:20 Blood Culture - Final Blood
--- NOTE | 2023-02-08 15:38 | P.PN ---
Subjective Progress Note Date: 02/08/23 Principal diagnosis: Perforated appendicitis and abdominal abscess Patient is a 72-year-old male presenting to the hospital on 02/01/2023 apparently the patient did have an outpatient CT concerning for possible enterocolitis/appendicitis, patient is status post limited right colectomy with ileal colonic anastomosis on 02/04/2023 abdominal culture positive for E. coli. On today's evaluation that is 02/08/2023 the patient is afebrile patient is breathing comfortably currently on 2 L nasal cannula oxygen the patient is sleepy and the RN mention has been having this for a few hours no vomiting or diarrhea any other changes has been reported by the nursing staff Objective - Vital Signs Vital signs: Vital Signs Temp 98.1 F 02/08/23 07:16 Pulse 100 02/08/23 07:16 Resp 17 02/08/23 07:16 BP 131/75 02/08/23 07:16 Pulse Ox 100 02/08/23 07:16 FiO2 Intake & Output 02/07/23 02/08/23 02/08/23 18:59 06:59 18:59 Output Total 1625 703 Balance -1625 -703 Weight 79.379 kg Output: Drainage 3 Right Lower Abdomen 3 Urine 1625 700 Straight 550 Other: Voiding Method Indwelling Catheter Indwelling Catheter Toilet Diaper # Voids 1 2 # Bowel Movements 1 2 - Exam GENERAL DESCRIPTION: An elderly male lying in bed in no distress RESPIRATORY SYSTEM: Unlabored breathing , decreased breath sounds at bases HEART: S1 S2 regular rate and rhythm , ABDOMEN: Soft , no tenderness EXTREMITIES: No edema feet - Labs CBC & Chem 7: 02/08/23 11:01 02/08/23 11:01 Labs: Abnormal Lab Results - Last 24 Hours (Table) 02/07/23 Range/Units 06:55 WBC 12.99 H (4.50-10.00) X 10*3/uL RBC 3.78 L (4.40-5.60) X 10*6/uL Hgb 11.5 L (13.0-17.0) g/dL Hct 36.2 L (39.6-50.0) % MCHC 31.8 L (32.0-37.0) g/dL Immature Gran # 0.11 H (0.00-0.04) X 10*3/uL Neutrophils # 10.06 H (1.80-7.70) X 10*3/uL Monocytes # 1.10 H (0.20-1.00) X 10*3/uL Eosinophils # 0.41 H (0.04-0.35) X 10*3/uL Microbiology - Last 24 Hours (Table) 02/01/23 18:05 Blood Culture - Final Blood 02/01/23 18:20 Blood Culture - Final Blood Assessment and Plan (1) Intra-abdominal abscess Current Visit: Yes Status: Acute Code(s): K65.1 - PERITONEAL ABSCESS SNOMED Code(s): 40503686 (2) Appendicitis Current Visit: Yes Status: Acute Code(s): K37 - UNSPECIFIED APPENDICITIS SNOMED Code(s): 57471707 Plan: 1patient presented to hospital with abdominal pain abnormal CT in this patient with evidence of appendicitis with abscess in this patient status post limited right colectomy and ileocolonic anastomosis abdominal culture positive for E. coli sensitive pathogen blood culture has been negative so far 2-patient white count is trending down and well continue Zosyn 3.375 g every 8 hours, plan to finish therapy with oral antibiotics Time with Patient: Less than 30
--- NOTE | 2023-02-08 16:24 | P.PN ---
Subjective Progress Note Date: 02/08/23 CHIEF COMPLAINT: Right lower quadrant abdominal pain HISTORY OF PRESENT ILLNESS: Postop day #4 status post limited right colectomy with ileocolonic anastomosis for appendicitis with abscess. Patient complains of abdominal pain. He does report that the pain is controlled. He is having bowel movements and flatus. Denies any nausea or vomiting. He does have purulent drainage at the distal aspect of this incision. Afebrile. WBC is 11.6 Hgb 11.5 platelets 347 patient seen by ID service Patient seen and examined with Dr. Gonzalez PHYSICAL EXAM: VITAL SIGNS: Reviewed. GENERAL: Well-developed in no acute distress. HEENT: No sclera icterus. Extraocular movements grossly intact. Moist buccal mucosa. Head is atraumatic, normocephalic. ABDOMEN: Soft. Prevana wound vac removed. Incision with some mild erythema and drainage noted at the distal aspect. There is also to blisters noted at the incision site. 2 dinorah removed at the distal aspect of the incision with small amount of purulent serosanguineous drainage NEUROLOGIC: Alert and oriented. Cranial nerves II through XII grossly intact. ASSESSMENT: 1. Appendicitis with abscess status post limited right colectomy with ileocolo clif anastomosis PLAN: -2 dinorah removed from incision with 1 tablespoon of a serosanguineous purulent drainage. Area was packed with gauze. Culture was obtained. -Continue pain management -Antibiotics per ID service -Abdominal binder ordered -Continue full liquids -Incentive spirometer ordered -Encourage patient to ambulate -GI prophylaxis Protonix and DVT prophylaxis subcu heparin Physician Glue Clamp Operator note has been reviewed by physician. Signing provider agrees with the documented findings, assessment, and plan of care. Objective - Vital Signs Vital signs: Vital Signs Temp 98.8 F 02/08/23 02:00 Pulse 93 02/08/23 02:00 Resp 18 02/08/23 02:00 BP 118/79 02/08/23 02:00 Pulse Ox 92 L 02/08/23 02:00 FiO2 Intake & Output 02/07/23 02/08/23 02/08/23 18:59 06:59 18:59 Output Total 1625 703 Balance -1625 -703 Weight 79.379 kg Output: Drainage 3 Right Lower Abdomen 3 Urine 1625 700 Straight 550 Other: Voiding Method Indwelling Catheter Indwelling Catheter # Voids 1 2 # Bowel Movements 1 - Labs CBC & Chem 7: 02/08/23 11:01 02/08/23 11:01 Labs: Abnormal Lab Results - Last 24 Hours (Table) 02/07/23 02/07/23 Range/Units 06:55 06:55 WBC 12.99 H (4.50-10.00) X 10*3/uL RBC 3.78 L (4.40-5.60) X 10*6/uL Hgb 11.5 L (13.0-17.0) g/dL Hct 36.2 L (39.6-50.0) % MCHC 31.8 L (32.0-37.0) g/dL Immature Gran # 0.11 H (0.00-0.04) X 10*3/uL Neutrophils # 10.06 H (1.80-7.70) X 10*3/uL Monocytes # 1.10 H (0.20-1.00) X 10*3/uL Eosinophils # 0.41 H (0.04-0.35) X 10*3/uL Anion Gap 9.70 L (10.00-18.00) mmol/L BUN/Creatinine Ratio 8.46 L (12.00-20.00) Ratio Calcium 8.5 L (8.7-10.3) mg/dL Microbiology - Last 24 Hours (Table) 02/01/23 18:05 Blood Culture - Final Blood 02/01/23 18:20 Blood Culture - Final Blood
[2023-02-09] MEDS: MULTIVITAMINS, THERA 1 EACH TAB PO SCH (07:59)
[2023-02-09] MEDS: PANTOPRAZOLE 40 MG/10 ML VIAL IVP SCH (07:59)
[2023-02-09] MEDS: TAMSULOSIN 0.4 MG CAP.ER.24H PO SCH (07:59)
[2023-02-09] MEDS: HEPARIN SODIUM,PORCINE/PF 5,000 UNIT/0.5 ML SYRINGE SQ SCH ×2 (07:59→17:11)
[2023-02-09] MEDS: NYSTATIN 100,000 UNIT/ML SUSP 500,000 UNIT/5 ML CUP PO SCH ×4 (07:59→19:54)
[2023-02-09] MEDS: PIPERACILLIN-TAZOBACTAM 3.375 GM in SODIUM CHLORIDE 0.9% 100 ML IVPB SCH ×2 (07:59→17:11)
[2023-02-09] MEDS: IPRATROPIUM-ALBUTEROL 3 ML NEB INHALATION PRN (09:00)
[2023-02-09 10:15] LABS: African American GFR (CKD) 76.2 (60.0-200.0); Anion Gap 12.6 mmol/L (10.00-18.00); BUN/Creat Ratio 8.09 Ratio (12.00-20.00); Blood Urea Nitrogen 8.9 mg/dL (9.0-27.0); Calcium 8.9 mg/dL (8.7-10.3); Carbon Dioxide 27.4 mmol/L (20.0-27.5); Non-African American GFR(CKD) 65.8 (60.0-200.0); Potassium 4.2 mmol/L (3.5-5.5)
--- NOTE | 2023-02-09 10:51 | P.PN ---
Subjective Progress Note Date: 02/09/23 Principal diagnosis: Appendicitis Patient doing well today. He is having bowel function. He is tolerating his full liquids. Patient would like more to eat. He does have some drainage still from the middle and lower aspect of his incision. He is afebrile. Objective - Vital Signs Vital signs: Vital Signs Temp 98.8 F 02/09/23 07:06 Pulse 82 02/09/23 09:09 Resp 18 02/09/23 07:06 BP 145/72 02/09/23 07:06 Pulse Ox 96 02/09/23 09:02 FiO2 21 02/09/23 09:02 Intake & Output 02/08/23 02/09/23 02/09/23 18:59 06:59 18:59 Output Total 1020 Balance -1020 Output: Drainage 20 Right Lower Abdomen 20 Urine 1000 Other: Voiding Method Toilet Toilet Diaper Urinal Diaper # Voids 3 1 # Bowel Movements 1 1 1 - Exam Abdomen: Soft, nondistended, open wound inferior aspect of incision draining a small amount of serosanguineous fluid. There is also drainage present. The umbilical region between dinorah that has a cloudy appearance. - Labs CBC & Chem 7: 02/08/23 11:01 02/09/23 05:44 Labs: Abnormal Lab Results - Last 24 Hours (Table) 02/08/23 02/08/23 02/09/23 Range/Units 11:01 11:01 05:44 WBC 11.6 H (3.8-10.6) k/uL RBC 3.79 L (4.30-5.90) m/uL Hgb 11.5 L (13.0-17.5) gm/dL Hct 35.8 L (39.0-53.0) % Neutrophils # 10.0 H (1.3-7.7) k/uL Lymphocytes # 0.6 L (1.0-4.8) k/uL BUN 8.9 L (9.0-27.0) mg/dL BUN/Creatinine Ratio 8.09 L (12.00-20.00) Ratio Glucose 146 H (74-99) mg/dL Calcium 8.2 L (8.4-10.2) mg/dL Microbiology - Last 24 Hours (Table) 02/08/23 15:00 Anaerobic Culture - Preliminary Incision 02/08/23 15:00 Wound Culture - Preliminary Abdomen Assessment and Plan (1) Appendicitis Narrative/Plan: 72-year-old male doing well after right colectomy for appendicitis. Continue antibiotics. We'll remove 2 additional dinorah where there is active drainage superiorly. Advance to regular diet. Current Visit: Yes Status: Acute Code(s): K37 - UNSPECIFIED APPENDICITIS SNOMED Code(s): 77406869
[2023-02-09 11:36] LABS: Basophils # (A) 0.08 X 10*3/uL (0.00-0.10); Basophils % (A) 0.6 %; Eosinophils # (A) 0.47 X 10*3/uL (0.04-0.35); Eosinophils % (A) 3.3 %; HCT 36.3 % (39.6-50.0); HGB 11.6 g/dL (13.0-17.0); Immature Grans, Automated 1.1 %; Lymphocytes # (A) 1.64 X 10*3/uL (0.90-5.00); Lymphocytes % (A) 11.5 %; MCH 29.9 pg (27.0-32.0); MCV 93.6 fL (80.0-97.0); Mean Platelet Volume 9.5 fL (9.5-12.2); Monocytes # (A) 0.86 X 10*3/uL (0.20-1.00); NRBC Per 100 WBC 0 /100 WBCS (0.0-0.0); Neutrophils # (A) 11.02 X 10*3/uL (1.80-7.70); Neutrophils % (A) 77.5 %; Platelet Count 436 X 10*3/uL (140-440); RBC 3.88 X 10*6/uL (4.40-5.60); RDW 14.2 % (11.5-14.5); WBC 14.22 X 10*3/uL (4.50-10.00)
[2023-02-09] MEDS: ACETAMINOPHEN TAB 325 MG TAB PO PRN ×2 (12:09→19:54)
--- NOTE | 2023-02-09 12:57 | P.PN ---
Subjective Progress Note Date: 02/09/23 Hospital course: Patient is a very pleasant 72-year-old male with a past medical history of obstructive sleep apnea and osteoarthritis status post right hip replacement. He presented to the emergency department secondary to right lower quadrant abdominal pain. Patient reported pain began 2-3 days ago and progressively worsened. Patient went to his PCP for evaluation and was sent to the hospital for a CT abdomen and pelvis. Outpatient CT abdomen and pelvis with contrast was reviewed and revealed moderate generalized enterocolitis with the greatest degree of small bowel wall thickening in right lower quadrant, inflammatory thickening also extending into the cecum and appendix as well, primary enterocolitis with secondary inflammation of the appendix is reported, acute appendicitis is not ruled out, also reported long segment colitis is noted to transverse colon, moderate inflammatory edema and fat stranding in the right lower quadrant along with mild pelvic free fluid likely reactive, circumferential bladder wall thickening possibly representing chronic bilateral hypertrophia versus cystitis, and prostamegaly with prostate reported to be 5.3 cm wide. Patient was sent to ER secondary to these findings. Patient has been admitted under our services with consultation to general surgery team. Patient had right colectomy done by general surgery. Patient seen and examined at bedside. No acute events overnight. Had 1 bowel movement today. Able to tolerate oral intake. 2 additional dinorah being removed today, from where active drainage is noted. Physical exam: General examination - Alert and Oriented 3 in NAD Heart - + S1S2 no murmurs Lungs - Clear to auscultation Abdomen soft diffuse tenderness to palpate which is expected after surgery ND +ve BS, bandages over her surgical wounds are intact and dry, dinorah removed, wound packed Extremities - No edema CUSTOMER SERVICE ADMINISTRATOR - Moving all 4 extremities spontaneously Psych - Calm and cooperative Assessment Data reviewed: WBC 14.22, hemoglobin 11.6, creatinine 1.1 Abdominal cultures positive for pansensitive E. coli Appendicitis with abscess status post right colectomy Acute hypoxic respiratory failure, resolved on room air BPH Plan Pain control. Oral Tylenol as needed, oral [place] as needed, IV Dilaudid as needed, IV morphine as needed. On IV Zosyn 3.375 mg every 8 hours. Abdominal cultures positive for pansensitive E. coli ID following Repeat CBC and BMP tomorrow -Surgery note reviewed, possibly advance to regular diet DVT prophylaxis: Subcu heparin Anticipated discharge: Possibly Saturday Anticipated discharge place: Likely home with home care Objective - Vital Signs Vital signs: Vital Signs Temp 98.8 F 02/09/23 07:06 Pulse 82 02/09/23 09:09 Resp 18 02/09/23 07:06 BP 145/72 02/09/23 07:06 Pulse Ox 96 02/09/23 09:02 FiO2 21 02/09/23 09:02 Intake & Output 02/08/23 02/09/23 02/09/23 18:59 06:59 18:59 Output Total 1020 Balance -1020 Output: Drainage 20 Right Lower Abdomen 20 Urine 1000 Other: Voiding Method Toilet Toilet Diaper Urinal Diaper # Voids 3 1 # Bowel Movements 1 1 1 - Labs CBC & Chem 7: 02/09/23 05:44 02/09/23 05:44 Labs: Abnormal Lab Results - Last 24 Hours (Table) 02/09/23 02/09/23 Range/Units 05:44 05:44 WBC 14.22 H (4.50-10.00) X 10*3/uL RBC 3.88 L (4.40-5.60) X 10*6/uL Hgb 11.6 L (13.0-17.0) g/dL Hct 36.3 L (39.6-50.0) % Immature Gran # 0.15 H (0.00-0.04) X 10*3/uL Neutrophils # 11.02 H (1.80-7.70) X 10*3/uL Eosinophils # 0.47 H (0.04-0.35) X 10*3/uL BUN 8.9 L (9.0-27.0) mg/dL BUN/Creatinine Ratio 8.09 L (12.00-20.00) Ratio Microbiology - Last 24 Hours (Table) 02/08/23 15:00 Anaerobic Culture - Preliminary Incision 02/08/23 15:00 Wound Culture - Preliminary Abdomen
--- NOTE | 2023-02-09 22:14 | P.PN ---
Subjective Progress Note Date: 02/09/23 Principal diagnosis: Perforated appendicitis and abdominal abscess Patient is a 72-year-old male presenting to the hospital on 02/01/2023 apparently the patient did have an outpatient CT concerning for possible enterocolitis/appendicitis, patient is status post limited right colectomy with ileal colonic anastomosis on 02/04/2023 abdominal culture positive for E. coli. On today's evaluation that is 02/09/2023 patient remains to be afebrile, the patient is breathing comfortably on room air patient denies having any chest pain shortness of breath or cough abdominal pain is currently controlled no nausea vomiting and no diarrhea has been reported Objective - Vital Signs Vital signs: Vital Signs Temp 98.8 F 02/09/23 07:06 Pulse 82 02/09/23 09:09 Resp 18 02/09/23 07:06 BP 145/72 02/09/23 07:06 Pulse Ox 96 02/09/23 09:02 FiO2 21 02/09/23 09:02 Intake & Output 02/08/23 02/09/23 02/09/23 18:59 06:59 18:59 Output Total 1020 Balance -1020 Output: Drainage 20 Right Lower Abdomen 20 Urine 1000 Other: Voiding Method Toilet Toilet Diaper Urinal Diaper # Voids 3 1 # Bowel Movements 1 1 1 - Exam GENERAL DESCRIPTION: An elderly male lying in bed in no distress RESPIRATORY SYSTEM: Unlabored breathing , decreased breath sounds at bases HEART: S1 S2 regular rate and rhythm , ABDOMEN: Soft , no tenderness EXTREMITIES: No edema feet - Labs CBC & Chem 7: 02/09/23 05:44 02/09/23 05:44 Labs: Abnormal Lab Results - Last 24 Hours (Table) 02/08/23 02/08/23 02/09/23 Range/Units 11:01 11:01 05:44 WBC 11.6 H (3.8-10.6) k/uL RBC 3.79 L (4.30-5.90) m/uL Hgb 11.5 L (13.0-17.5) gm/dL Hct 35.8 L (39.0-53.0) % Neutrophils # 10.0 H (1.3-7.7) k/uL Lymphocytes # 0.6 L (1.0-4.8) k/uL BUN 8.9 L (9.0-27.0) mg/dL BUN/Creatinine Ratio 8.09 L (12.00-20.00) Ratio Glucose 146 H (74-99) mg/dL Calcium 8.2 L (8.4-10.2) mg/dL Microbiology - Last 24 Hours (Table) 02/08/23 15:00 Anaerobic Culture - Preliminary Incision 02/08/23 15:00 Wound Culture - Preliminary Abdomen Assessment and Plan (1) Intra-abdominal abscess Current Visit: Yes Status: Acute Code(s): K65.1 - PERITONEAL ABSCESS SNOMED Code(s): 58300527 (2) Appendicitis Current Visit: Yes Status: Acute Code(s): K37 - UNSPECIFIED APPENDICITIS SNOMED Code(s): 53977485 Plan: 1patient presented to hospital with abdominal pain abnormal CT in this patient with evidence of appendicitis with abscess in this patient status post limited right colectomy and ileocolonic anastomosis abdominal culture positive for E. coli sensitive pathogen blood culture has been negative so far 2-Patient remains to be afebrile however the patient white count is slightly e levated today at 14.4k which should be monitored closely we will continue patient on Zosyn while waiting for the repeat culture to be finalized and monitor clinical course closely Time with Patient: Less than 30
[2023-02-10] MEDS: HEPARIN SODIUM,PORCINE/PF 5,000 UNIT/0.5 ML SYRINGE SQ SCH ×4 (01:29→23:43)
[2023-02-10] MEDS: PIPERACILLIN-TAZOBACTAM 3.375 GM in SODIUM CHLORIDE 0.9% 100 ML IVPB SCH ×4 (01:29→23:43)
[2023-02-10] MEDS: IPRATROPIUM-ALBUTEROL 3 ML NEB INHALATION PRN ×3 (02:37→16:31)
[2023-02-10] MEDS: NYSTATIN 100,000 UNIT/ML SUSP 500,000 UNIT/5 ML CUP PO SCH ×4 (07:30→23:43)
[2023-02-10] MEDS: MULTIVITAMINS, THERA 1 EACH TAB PO SCH (07:30)
[2023-02-10] MEDS: TAMSULOSIN 0.4 MG CAP.ER.24H PO SCH (07:30)
[2023-02-10] MEDS: PANTOPRAZOLE 40 MG/10 ML VIAL IVP SCH (07:30)
[2023-02-10] MEDS: ACETAMINOPHEN TAB 325 MG TAB PO PRN (07:31)
[2023-02-10 07:53] LABS: Basophils # (A) 0.1 k/uL (0-0.2); Basophils % (A) 1 %; Eosinophils # (A) 0.3 k/uL (0-0.7); Eosinophils % (A) 3 %; HCT 36.1 % (39.0-53.0); HGB 11.3 gm/dL (13.0-17.5); Lymphocytes # (A) 1.5 k/uL (1.0-4.8); Lymphocytes % (A) 12 %; MCH 29.6 pg (25.0-35.0); MCHC 31.4 g/dL (31.0-37.0); MCV 94.3 fL (80.0-100.0); Mean Platelet Volume 7.6; Monocytes # (A) 0.6 k/uL (0-1.0); Monocytes % (A) 5 %; Neutrophils % (A) 79 %; Platelet Count 460 k/uL (150-450); RBC 3.82 m/uL (4.30-5.90); RDW 13.6 % (11.5-15.5); WBC 12.6 k/uL (3.8-10.6)
[2023-02-10 08:14] LABS: African American GFR (CKD) 86 (>60 ml/min/1.73 sqM); Anion Gap 9 mmol/L; Blood Urea Nitrogen 9 mg/dL (9-20); Calcium 8.4 mg/dL (8.4-10.2); Carbon Dioxide 26 mmol/L (22-30); Chloride 103 mmol/L (98-107); Glucose 104 mg/dL (74-99); Non-African American GFR(CKD) 75 (>60 ml/min/1.73 sqM); Potassium 3.5 mmol/L (3.5-5.1); Sodium 138 mmol/L (137-145)
--- NOTE | 2023-02-10 10:22 | P.PN ---
Subjective Progress Note Date: 02/10/23 Principal diagnosis: Appendicitis Patient sitting up in the chair. No significant pain at this time. He is having some loose stools. White blood cell count 12.6. He is afebrile. He is tolerating his full liquids and would like more to eat. Objective - Vital Signs Vital signs: Vital Signs Temp 98.3 F 02/10/23 07:07 Pulse 92 02/10/23 09:10 Resp 18 02/10/23 07:07 BP 131/79 02/10/23 07:07 Pulse Ox 95 02/10/23 08:53 FiO2 21 02/10/23 08:53 Intake & Output 02/09/23 02/10/23 02/10/23 18:59 06:59 18:59 Intake Total 450 Balance 450 Intake: Intake, IV Titration 100 Amount Piperacillin-Tazobactam 3 100 .375 gm In Sodium Chloride 0.9% 100 ml @ 25 mls/hr IVPB Q8HR [facility] Rx# :[id number] Oral 350 Other: Voiding Method Toilet Urinal Diaper # Voids 1 4 # Bowel Movements 1 2 - Exam Abdomen: Soft, nondistended, 2 separate wounds with sterile saline was drainage, mild tenderness - Labs CBC & Chem 7: 02/10/23 07:33 02/10/23 07:33 Labs: Abnormal Lab Results - Last 24 Hours (Table) 02/09/23 02/10/23 02/10/23 Range/Units 05:44 07:33 07:33 WBC 14.22 H 12.6 H (4.50-10.00) X 10*3/uL RBC 3.88 L 3.82 L (4.40-5.60) X 10*6/uL Hgb 11.6 L 11.3 L (13.0-17.0) g/dL Hct 36.3 L 36.1 L (39.6-50.0) % Plt Count 460 H (150-450) k/uL Immature Gran # 0.15 H (0.00-0.04) X 10*3/uL Neutrophils # 11.02 H 10.0 H (1.80-7.70) X 10*3/uL Eosinophils # 0.47 H (0.04-0.35) X 10*3/uL Glucose 104 H (74-99) mg/dL Microbiology - Last 24 Hours (Table) 02/08/23 15:00 Gram Stain - Preliminary Abdomen Wound Culture - Preliminary Gram Neg Bacilli Assessment and Plan (1) Appendicitis Narrative/Plan: Patient doing better at this time. Continue advancing diet. Continue antibiotics. Continue local wound care. Ambulate. Current Visit: Yes Status: Acute Code(s): K37 - UNSPECIFIED APPENDICITIS SNOMED Code(s): 89034901
--- NOTE | 2023-02-10 11:02 | P.PN ---
Subjective Progress Note Date: 02/10/23 Hospital course: Patient is a very pleasant 72-year-old male with a past medical history of obstr uctive sleep apnea and osteoarthritis status post right hip replacement. He presented to the emergency department secondary to right lower quadrant abdominal pain. Patient reported pain began 2-3 days ago and progressively worsened. Patient went to his PCP for evaluation and was sent to the hospital for a CT abdomen and pelvis. Outpatient CT abdomen and pelvis with contrast was reviewed and revealed moderate generalized enterocolitis with the greatest degree of small bowel wall thickening in right lower quadrant, inflammatory thickening also extending into the cecum and appendix as well, primary enterocolitis with secondary inflammation of the appendix is reported, acute appendicitis is not ruled out, also reported long segment colitis is noted to transverse colon, moderate inflammatory edema and fat stranding in the right lower quadrant along with mild pelvic free fluid likely reactive, circumferential bladder wall thickening possibly representing chronic bilateral hypertrophia versus cystitis, and prostamegaly with prostate reported to be 5.3 cm wide. Patient was sent to ER secondary to these findings. Patient has been admitted under our services with consultation to general surgery team. Patient had right colectomy done by general surgery. Patient seen and examined at bedside. No acute events overnight. Having bowel movements. Able to tolerate oral intake. 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 coli Appendicitis with abscess status post right colectomy Acute hypoxic respiratory failure, resolved, now on room air BPH Plan Pain control. Oral Tylenol as needed, oral [place] as needed, IV Dilaudid as needed, IV morphine as needed. On IV Zosyn 3.375 mg every 8 hours. Abdominal cultures positive for pansensitive E. coli ID following Repeat CBC and BMP tomorrow -Surgery note reviewed, advance to low fiber diet DVT prophylaxis: Subcu heparin Anticipated discharge: Possibly Saturday Anticipated discharge place: Likely home with home care Objective - Vital Signs Vital signs: Vital Signs Temp 98.3 F 02/10/23 07:07 Pulse 92 02/10/23 09:10 Resp 18 02/10/23 07:07 BP 131/79 02/10/23 07:07 Pulse Ox 95 02/10/23 08:53 FiO2 21 02/10/23 08:53 Intake & Output 02/09/23 02/10/23 02/10/23 18:59 06:59 18:59 Intake Total 450 Balance 450 Intake: Intake, IV Titration 100 Amount Piperacillin-Tazobactam 3 100 .375 gm In Sodium Chloride 0.9% 100 ml @ 25 mls/hr IVPB Q8HR [facility] Rx# :[id number] Oral 350 Other: Voiding Method Toilet Urinal Diaper # Voids 1 4 # Bowel Movements 1 2 - Labs CBC & Chem 7: 02/10/23 07:33 02/10/23 07:33 Labs: Abnormal Lab Results - Last 24 Hours (Table) 02/09/23 02/10/23 02/10/23 Range/Units 05:44 07:33 07:33 WBC 14.22 H 12.6 H (4.50-10.00) X 10*3/uL RBC 3.88 L 3.82 L (4.40-5.60) X 10*6/uL Hgb 11.6 L 11.3 L (13.0-17.0) g/dL Hct 36.3 L 36.1 L (39.6-50.0) % Plt Count 460 H (150-450) k/uL Immature Gran # 0.15 H (0.00-0.04) X 10*3/uL Neutrophils # 11.02 H 10.0 H (1.80-7.70) X 10*3/uL Eosinophils # 0.47 H (0.04-0.35) X 10*3/uL Glucose 104 H (74-99) mg/dL Microbiology - Last 24 Hours (Table) 02/08/23 15:00 Gram Stain - Preliminary Abdomen Wound Culture - Preliminary Gram Neg Bacilli
--- NOTE | 2023-02-10 15:03 | P.PN ---
Subjective Progress Note Date: 02/10/23 Principal diagnosis: Perforated appendicitis and abdominal abscess Patient is a 72-year-old male presenting to the hospital on 02/01/2023 apparently the patient did have an outpatient CT concerning for possible enterocolitis/appendicitis, patient is status post limited right colectomy with ileal colonic anastomosis on 02/04/2023 abdominal culture positive for E. coli. On today's evaluation that is 02/10/2023 patient continues to be afebrile, the patient is breathing comfortably on room air, patient denies having any chest pain shortness of breath or cough , the patient abdominal pain has decreased in intensity denies any nausea no vomiting and no diarrhea has been reported Objective - Vital Signs Vital signs: Vital Signs Temp 98.3 F 02/10/23 07:07 Pulse 92 02/10/23 09:10 Resp 18 02/10/23 07:07 BP 131/79 02/10/23 07:07 Pulse Ox 95 02/10/23 08:53 FiO2 21 02/10/23 08:53 Intake & Output 02/09/23 02/10/23 02/10/23 18:59 06:59 18:59 Intake Total 450 Balance 450 Intake: Intake, IV Titration 100 Amount Piperacillin-Tazobactam 3 100 .375 gm In Sodium Chloride 0.9% 100 ml @ 25 mls/hr IVPB Q8HR [facility] Rx# :[id number] Oral 350 Other: Voiding Method Toilet Urinal Diaper # Voids 1 4 # Bowel Movements 1 2 - Exam GENERAL DESCRIPTION: An elderly male lying in bed in no distress RESPIRATORY SYSTEM: Unlabored breathing , decreased breath sounds at bases HEART: S1 S2 regular rate and rhythm , ABDOMEN: Soft , no tenderness EXTREMITIES: No edema feet - Labs CBC & Chem 7: 02/10/23 07:33 02/10/23 07:33 Labs: Abnormal Lab Results - Last 24 Hours (Table) 02/10/23 02/10/23 Range/Units 07:33 07:33 WBC 12.6 H (3.8-10.6) k/uL RBC 3.82 L (4.30-5.90) m/uL Hgb 11.3 L (13.0-17.5) gm/dL Hct 36.1 L (39.0-53.0) % Plt Count 460 H (150-450) k/uL Neutrophils # 10.0 H (1.3-7.7) k/uL Glucose 104 H (74-99) mg/dL Microbiology - Last 24 Hours (Table) 02/08/23 15:00 Gram Stain - Preliminary Abdomen Wound Culture - Preliminary Gram Neg Bacilli Assessment and Plan (1) Intra-abdominal abscess Current Visit: Yes Status: Acute Code(s): K65.1 - PERITONEAL ABSCESS S NOMED Code(s): 14295965 (2) Appendicitis Current Visit: Yes Status: Acute Code(s): K37 - UNSPECIFIED APPENDICITIS SNOMED Code(s): 92938487 Plan: 1patient presented to hospital with abdominal pain abnormal CT in this patient with evidence of appendicitis with abscess in this patient status post limited right colectomy and ileocolonic anastomosis abdominal culture positive for E. coli sensitive pathogen blood culture has been negative so far 2-Patient remains to be afebrile however the patient white count is trending down to 12,000 today repeat abdominal cultures currently growing gram-negative with id sensitivities pending we will continue patient on zosyn while waiting for repeat culture finalized and monitor clinical course closely Time with Patient: Less than 30
[2023-02-11 08:41] LABS: Basophils % (A) 0.8 %; Eosinophils # (A) 0.54 X 10*3/uL (0.04-0.35); Eosinophils % (A) 4.2 %; HCT 33.9 % (39.6-50.0); HGB 10.9 g/dL (13.0-17.0); Immature Grans, Automated 0.8 %; Lymphocytes # (A) 1.84 X 10*3/uL (0.90-5.00); Lymphocytes % (A) 14.5 %; MCH 29.8 pg (27.0-32.0); MCHC 32.2 g/dL (32.0-37.0); MCV 92.6 fL (80.0-97.0); Mean Platelet Volume 9.5 fL (9.5-12.2); Monocytes # (A) 0.71 X 10*3/uL (0.20-1.00); Monocytes % (A) 5.6 %; NRBC Per 100 WBC 0 /100 WBCS (0.0-0.0); Neutrophils # (A) 9.43 X 10*3/uL (1.80-7.70); Neutrophils % (A) 74.1 %; Platelet Count 465 X 10*3/uL (140-440); RBC 3.66 X 10*6/uL (4.40-5.60); RDW 14.5 % (11.5-14.5); WBC 12.72 X 10*3/uL (4.50-10.00)
[2023-02-11 08:43] VITALS: BP 137/77; PULSE 93; RESP 18; TEMP 98.1
[2023-02-11] MEDS: HEPARIN SODIUM,PORCINE/PF 5,000 UNIT/0.5 ML SYRINGE SQ SCH (09:00)
[2023-02-11] MEDS: NYSTATIN 100,000 UNIT/ML SUSP 500,000 UNIT/5 ML CUP PO SCH (09:00)
[2023-02-11] MEDS: PIPERACILLIN-TAZOBACTAM 3.375 GM in SODIUM CHLORIDE 0.9% 100 ML IVPB SCH (09:00)
[2023-02-11] MEDS: PANTOPRAZOLE 40 MG/10 ML VIAL IVP SCH (09:00)
[2023-02-11] MEDS: MULTIVITAMINS, THERA 1 EACH TAB PO SCH (09:00)
[2023-02-11] MEDS: TAMSULOSIN 0.4 MG CAP.ER.24H PO SCH (09:00)
[2023-02-11 09:12] LABS: Anion Gap 13.1 mmol/L (10.00-18.00); BUN/Creat Ratio 7.6 Ratio (12.00-20.00); Blood Urea Nitrogen 7.6 mg/dL (9.0-27.0); Carbon Dioxide 22.9 mmol/L (20.0-27.5); Potassium 3.7 mmol/L (3.5-5.5)
[2023-02-11 09:13] LABS: African American GFR (CKD) 85.6 (60.0-200.0); Calcium 8.6 mg/dL (8.7-10.3); Non-African American GFR(CKD) 73.8 (60.0-200.0)
--- NOTE | 2023-02-11 12:14 | P.DS ---
Providers Date of admission: 02/01/23 19:06 Expected date of discharge: 02/11/23 Attending physician: Enoc Herron MD Consults: 02/01/23 19:06 Consult Physician Urgent Consulting Provider: Chuy Gonzalez Consult Reason/Comments: Acute appendicitis Do you want consulting provider notified?: Yes 02/07/23 12:30 Consult Physician Routine Consulting Provider: Rajani Kimbrough Consult Reason/Comments: complicated appendicitis Do you want consulting provider notified?: Yes Primary care physician: [facility] Hospital Course: Patient is a very pleasant 72-year-old male with a past medical history of obstructive sleep apnea and osteoarthritis status post right hip replacement. He presented to the emergency department secondary to right lower quadrant abdominal pain. Patient reported pain began 2-3 days ago and progressively worsened. Patient went to his PCP for evaluation and was sent to the hospital for a CT abdomen and pelvis. Outpatient CT abdomen and pelvis with contrast was reviewed and revealed moderate generalized enterocolitis with the greatest degree of small bowel wall thickening in right lower quadrant, inflammatory thickening also extending into the cecum and appendix as well, primary enterocolitis with secondary inflammation of the appendix is reported, acute appendicitis is not ruled out, also reported long segment colitis is noted to transverse colon, moderate inflammatory edema and fat stranding in the right lower quadrant along with mild pelvic free fluid likely reactive, circumferential bladder wall thickening possibly representing chronic bilateral hypertrophia versus cystitis, and prostamegaly with prostate reported to be 5.3 cm wide. Patient was sent to ER secondary to these findings. Patient has been admitted under our services with consultation to general surgery team. Patient had right colectomy done by general surgery on 02/04. ID was consulted, he was continued on Zosyn. Wound culture grew mas sensitive E. coli. Patient was seen and examined. No acute events. Patient reports his abdomen. No nausea or vomiting. Tolerating diet well. CBC shows leukocytosis of 12.7 to along with hemoglobin of 10.9 and platelet count of 465. BMP shows BUN of 7.6 and calcium of 8.6. Plans to discharge the patient home today. He has completed 9 days of Zosyn. Discussed with Dr. Kimbrough, recommends 7 days of Augmentin. Plans to set up Home Health on discharge. Patient is advised to follow up with his PCP within 1-2 days of discharge. He is advised to follow up with Surgery within 1 week of discharge. Pertinent studies include CTAP, chest x-ray. Pertinent procedures include colectomy. General: non toxic, no distress, appears at stated age Derm: warm, dry Head: atraumatic, normocephalic, symmetric Eyes: EOMI, no lid lag, anicteric sclera Cardiovascular: S1S2 reg, no murmur Lungs: CTA bilateral, no rhonchi, no rales , no accessory muscle use Abdominal: soft, nontender to palpation, abdominal binder in place Ext: no gross muscle atrophy, no edema, no contractures Neuro: no focal neuro deficits Psych: Alert, oriented, appropriate affect Discharge Diagnosis: Appendicitis with abscess status post right colectomy Acute hypoxic respiratory failure, resolved, now on room air BPH This complex discharge took 35 minutes to complete. Patient Condition at Discharge: Stable Plan - Discharge Summary Discharge Rx Participant: Yes New Discharge Prescriptions: No Action Prevagen 1 cap PO DAILY Multivitamins, Thera [Multivitamin (formulary)] 1 tab PO DAILY Cephalexin [Keflex] 1,000 mg PO BID Butler-3/Dha/Epa/Fish Oil [Fish Oil 1,000 mg Softgel] 1 cap PO BID Discharge Medication List Cephalexin [Keflex] 1,000 mg PO BID 02/01/23 [History] Multivitamins, Thera [Multivitamin (formulary)] 1 tab PO DAILY 02/01/23 [History] Butler-3/Dha/Epa/Fish Oil [Fish Oil 1,000 mg Softgel] 1 cap PO BID 02/01/23 [History] Prevagen 1 cap PO DAILY 02/01/23 [History] Follow up Appointment(s)/Referral(s): You Farfan MD [Primary Care Provider] - 1-2 days Residential Home[facility] [NON-STAFF] - As Needed
--- NOTE | 2023-02-11 13:03 | P.PN ---
Subjective Progress Note Date: 02/11/23 CHIEF COMPLAINT: Right lower quadrant abdominal pain HISTORY OF PRESENT ILLNESS: Postop day #6 status post limited right colectomy with ileocolonic anastomosis for appendicitis with abscess. Patient reports his pain is controlled. He denies any nausea or vomiting. He is having bowel movements. He is tolerating the low fiber diet. Afebrile. White count staying around the same at 12. Hemoglobin stable at 10.9 electronics processor wound culture did grow E. coli. Patient does could have drainage from the abdominal incision site. JAMEY drain with 10 mL serosanguineous output Patient seen and examined with Dr. Gonzalez PHYSICAL EXAM: VITAL SIGNS: Reviewed. GENERAL: Well-developed in no acute distress. HEENT: No sclera icterus. Extraocular movements grossly intact. Moist buccal mucosa. Head is atraumatic, normocephalic. ABDOMEN: Soft. Nondistended. Minimal tenderness at incision site. Incision no evidence of erythema. 2 areas that are opened and dinorah removed. Some cloudy serosanguineous drainage noted NEUROLOGIC: Alert and oriented. Cranial nerves II through XII grossly intact. ASSESSMENT: 1. Appendicitis with abscess status post limited right colectomy with ileocolonic anastomosis 2. Infection at abdominal incision site PLAN: -Patient can be discharged from surgical standpoint -Discontinue JAMEY drain prior to discharge -Agree with antibiotics at discharge -Patient to follow-up with Dr. Gonzalez in 1 week -Continue local wound care with Aquacel silver dressing changes daily -GI prophylaxis Protonix and DVT prophylaxis subcu heparin Physician Electrical Test Technician note has been reviewed by physician. Signing provider agrees with the documented findings, assessment, and plan of care. Objective - Vital Signs Vital signs: Vital Signs Temp 98.1 F 02/11/23 07:21 Pulse 93 02/11/23 07:21 Resp 18 02/11/23 07:21 BP 137/77 02/11/23 07:21 Pulse Ox 97 02/11/23 07:21 FiO2 21 02/10/23 08:53 Intake & Output 02/10/23 02/11/23 02/11/23 18:59 06:59 18:59 Output Total 20 20 10 Balance -20 -20 -10 Output: Drainage 20 20 10 Right Lower Abdomen 20 20 10 Other: Voiding Method Toilet Urinal Diaper - Labs CBC & Chem 7: 02/11/23 05:01 05/22/23 05:01 Labs: Abnormal Lab Results - Last 24 Hours (Table) 02/11/23 02/11/23 Range/Units 05:01 05:01 WBC 12.72 H (4.50-10.00) X 10*3/uL RBC 3.66 L (4.40-5.60) X 10*6/uL Hgb 10.9 L (13.0-17.0) g/dL Hct 33.9 L (39.6-50.0) % Plt Count 465 H (140-440) X 10*3/uL Immature Gran # 0.10 H (0.00-0.04) X 10*3/uL Neutrophils # 9.43 H (1.80-7.70) X 10*3/uL Eosinophils # 0.54 H (0.04-0.35) X 10*3/uL BUN 7.6 L (9.0-27.0) mg/dL BUN/Creatinine Ratio 7.60 L (12.00-20.00) Ratio Calcium 8.6 L (8.7-10.3) mg/dL Microbiology - Last 24 Hours (Table) 02/08/23 15:00 Gram Stain - Final Abdomen Wound Culture - Preliminary Escherichia coli
== END 2023-02-11 13:50 | disposition home or self-care (01) | DRG 853 ==
LOC: EC 16:30 → 4SSUR 19:06
PROVIDERS: ADMIT Student in an Organized Health Care Education/Training Program; ATTEND Student in an Organized Health Care Education/Training Program
PROC: 3E0R3BZ Introduction of Anesthetic Agent into Spinal Canal, Percutaneous Approach (ICD-10-PCS; 2023-02-04)
PROC: 00HU33Z Insertion of Infusion Device into Spinal Canal, Percutaneous Approach (ICD-10-PCS; 2023-02-04)
PROC: 0DTF0ZZ Resection of Right Large Intestine, Open Approach (ICD-10-PCS; principal; 2023-02-04 15:05)
DX: A41.51 Sepsis due to Escherichia coli [E. coli] (principal); J96.01 Acute respiratory failure with hypoxia; K35.33 Acute appendicitis with perforation, localized peritonitis, and gangrene, with abscess; B37.0 Candidal stomatitis; D64.9 Anemia, unspecified; K52.9 Noninfective gastroenteritis and colitis, unspecified; K59.00 Constipation, unspecified; N40.0 Benign prostatic hyperplasia without lower urinary tract symptoms; E87.70 Fluid overload, unspecified; L29.9 Pruritus, unspecified; G47.33 Obstructive sleep apnea (adult) (pediatric); R23.8 Other skin changes; M19.90 Unspecified osteoarthritis, unspecified site; Z96.641 Presence of right artificial hip joint; Z91.010 Allergy to peanuts; Z88.2 Allergy status to sulfonamides; Z91.018 Allergy to other foods; Z79.899 Other long term (current) drug therapy
CPT/HCPCS: 71045; 74177; 80048; 80053; 81001; 85025; 85027; 85610; 85730; 86850; 86900; 86901; 87040; 87070; 87075; 87077; 87186; 87205; 88307; 94640; 94760; 96360; 96361; 99285

== ENCOUNTER → 2023-02-01 | Outpatient (CLI) | payer MEDICARE ==
[2023-02-01 13:33] LABS: Basophils % (A) 0 %; Eosinophils % (A) 0 %; HCT 43.6 % (39.0-53.0); HGB 14.1 gm/dL (13.0-17.5); Lymphocytes # (A) 0.8 k/uL (1.0-4.8); Lymphocytes % (A) 5 %; MCHC 32.3 g/dL (31.0-37.0); MCV 93.1 fL (80.0-100.0); Mean Platelet Volume 8.3; Monocytes # (A) 0.6 k/uL (0-1.0); Monocytes % (A) 3 %; Neutrophils # (A) 16.3 k/uL (1.3-7.7); Neutrophils % (A) 91 %; Platelet Count 246 k/uL (150-450); RBC 4.69 m/uL (4.30-5.90); RDW 13.6 % (11.5-15.5); WBC 17.9 k/uL (3.8-10.6)
[2023-02-01 13:34] LABS: ALT 18 U/L (4-49); AST 23 U/L (17-59); African American GFR (CKD) 76 (>60 ml/min/1.73 sqM); Albumin 4.5 g/dL (3.5-5.0); Albumin/Globulin Ratio 1.3; Alkaline Phosphatase 91 U/L (38-126); Anion Gap 12 mmol/L; Blood Urea Nitrogen 16 mg/dL (9-20); Calcium 9.5 mg/dL (8.4-10.2); Carbon Dioxide 28 mmol/L (22-30); Chloride 94 mmol/L (98-107); Globulin 3.5 g/dL; Glucose 125 mg/dL (74-99); Non-African American GFR(CKD) 66 (>60 ml/min/1.73 sqM); Potassium 4.6 mmol/L (3.5-5.1); Sodium 134 mmol/L (137-145); Total Bilirubin 1.7 mg/dL (0.2-1.3)
--- NOTE | 2023-02-01 15:54 | CT ---
EXAMINATION TYPE: CT abdomen pelvis w con DATE OF EXAM: 02/01/2023 COMPARISON: NONE HISTORY: 72-year-old male R10.31, RUQ abdominal pain. Fever. Nausea. TECHNIQUE: Contiguous axial scanning of the abdomen and pelvis following administration of 100 ml Iso semaj 300 IV contrast. Delayed images through the kidneys and coronal/sagittal reconstructions perform ed. CT DLP: 857.7 mGycm Automated exposure control for dose reduction was used. FINDINGS: Heart normal size without pericardial effusion. Dependent atelectasis posterior right base and strandy changes as well. Mild bronchial wall thickening could reflect bronchitis or asthma. There is a small to moderate sized hilar hernia. A couple tiny hepatic cysts measuring up to 6 mm. The gallbladder is borderline hydropic at 4.0 cm wide, probably due to fasting state. Portal venous s ystem is patent. No biliary ductal dilatation seen. Adrenal glands, spleen, and pancreas within normal limits. Kidneys show bilateral parapelvic cysts measuring up to 1.4 cm. Mild fold thickening throughout small bowel loops, but to a greater degree in the right lower quadran t. The appendix is also thickened and enlarged with suggestion of a 7 mm appendicolith at the base of th e appendix. A string of additional small calculi are present in the appendix, coronal image 42. Moder ate surrounding inflammatory fat stranding and edema and wall thickening extending to the adjacent ce cum. Oral contrast has progressed into the upper ascending colon. There is moderate circumferential wall thickening of the transverse colon, refer to coronal image 18. Mild sigmoid diverticulosis. Inflammatory changes do not appear centered in this region. A 9 mm right iliac chain lymph node, axial image 65 likely reactive. Otherwise, no mesenteric or retr operitoneal lymphadenopathy. Moderate circumferential bladder wall thickening. Prostate gland is enlarged up to 5.3 cm wide with s oft tissue impressing onto the base of the bladder. Trace pelvic free fluid likely reactive to the ab ove inflammation. No pelvic lymphadenopathy seen. Bones: Right hip arthroplasty. Mild to moderate degenerative changes left hip. Degenerative changes b ilateral SI joints. Bilateral L5 pars defects with grade 1 anterolisthesis L5-S1 superior endplate deformity of T12 has a chronic appearance. IMPRESSION: 1. CORRELATE FOR A MODERATE GENERALIZED ENTEROCOLITIS. GREATEST DEGREE OF SMALL BOWEL WALL THICKENING IS PRESENT IN THE RIGHT LOWER QUADRANT. INFLAMMATORY THICKENING ALSO EXTENDS TO THE CECUM AND APPEND IX WELL. A PRIMARY ENTEROCOLITIS WITH SECONDARY INFLAMMATION OF THE APPENDIX IS FAVORED. HOWEVER, GIVEN A STRING OF APPENDICOLITHS, A CONCURRENT ACUTE APPENDICITIS IS NOT EXCLUDED. LONG SEGMENT COLIT IS ALSO ALONG THE TRANSVERSE COLON. 2. MODERATE INFLAMMATORY EDEMA AND FAT STRANDING IN THE RIGHT LOWER QUADRANT ALONG WITH MILD PELVIC F REE FLUID LIKELY REACTIVE TO THE ABOVE INFLAMMATION. 3. Circumferential bladder wall thickening could represent chronic bilateral hypertrophy versus cysti tis. Clinically correlate. Prostatomegaly at 5.3 cm wide. 4. Bilateral L5 pars defects with grade 1 anterolisthesis of L5-S1.
== END | disposition home or self-care (01) ==
LOC: RADCTMAIN 12:50
PROVIDERS: ATTEND Family Medicine
DX: N40.0 Benign prostatic hyperplasia without lower urinary tract symptoms (principal); M43.17 Spondylolisthesis, lumbosacral region; N32.89 Other specified disorders of bladder; R50.9 Fever, unspecified
CPT/HCPCS: 80053; 85025; 74177; 36415; Q9967

== ENCOUNTER 2023-02-15 21:00 | Inpatient (IN) | payer MEDICARE ==
[2023-02-15] MEDS ORDERED: AMPICILLIN-SULBACTAM 3 GM in SODIUM CHLORIDE 0.9% 100 ML IVPB STA (21:52)
[2023-02-15] MEDS ORDERED: SODIUM CHLORIDE 0.9% 1,000 ML IV STA (21:52)
[2023-02-15] MEDS ORDERED: KETOROLAC 15 MG/ML 1 ML VIAL IVP STA (21:52)
--- NOTE | 2023-02-15 21:53 | ED ---
Recheck HPI - General Chief Complaint: Abdominal Pain Stated Complaint: Post-Op Complications, Infection Time Seen by Provider: 02/15/23 21:28 Source: patient, RN notes reviewed, old records reviewed Mode of arrival: ambulatory Limitations: no limitations - History of Present Illness Initial Comments: This is a 72-year-old male presents today for evaluation of wound infection. Patient is postop of our hospital for abdominal surgery. Patient had bowel resection of resection. Patient presents today for foul-smelling malodorous drainage from incision. No fevers no significant surrounding redness and erythema and no belly pain. Patient states despite antibiotics and wound care he feels that the wound is continuing to drain more becoming more foul-smelling. MD Complaint: abnormal lab -: minutes(s) Returns Today for: needs IV antibiotics, persistent/worsening pain related to initial visit Symptoms Since Prior Visit: no new symptoms Context: planned re-check Associated Symptoms: nausea Treatments Prior to Arrival: Given Antibiotics on, Given Pain Meds on - Related Data Home Medications Medication Instructions Recorded Confirmed Multivitamins, Thera [Multivitamin 1 tab PO DAILY 02/01/23 02/15/23 (formulary)] [place]-3/Dha/Epa/Fish Oil [Fish Oil 1 cap PO BID 02/01/23 02/15/23 1,000 mg Softgel] Prevagen 1 cap PO DAILY 02/01/23 02/15/23 Furosemide [Lasix] 20 mg PO DAILY 02/15/23 02/15/23 HYDROcodone/APAP 5-325MG [[place] 1 tab PO Q4HR PRN 02/15/23 02/15/23 5-325] Tamsulosin [Flomax] 0.4 mg PO DAILY 02/15/23 02/15/23 Previous Rx's Medication Instructions Recorded Acetaminophen Tab [Tylenol] 650 mg PO Q6HR PRN tab 02/11/23 Pantoprazole [Protonix] 40 mg PO DAILY #30 tab 02/11/23 Amoxic-Pot Clav 875-125Mg 1 tab PO BID 10 Days #20 tab 02/20/23 [Augmentin 875-125] Nystatin 100,000 Unit/gm Powd 1 applic TOPICAL TID 10 Days #30 02/20/23 [Mycostatin Powder] gram Allergies Allergy/AdvReac Type Severity Reaction Status Date / Time peanut Allergy Rapid Verified 02/15/23 22:13 Heart Rate tree nut [Nut] Allergy Rapid Verified 02/15/23 22:13 Heart Rate Sulfa (Sulfonamide AdvReac Rash/Hives Verified 02/15/23 22:13 Antibiotics) Review of Systems ROS Statement: Those systems with pertinent positive or pertinent negative responses have been documented in the HPI. ROS Other: All systems not noted in ROS Statement are negative. Past Medical History Past Medical History: No Reported History Additional Past Medical History / Comment(s): abd abscess History of Any Multi-Drug Resistant Organisms: None Reported Past Surgical History: Appendectomy, Bowel Resection, Hernia Repair, Joint Replacement Additional Past Surgical History / Comment(s): right hip , bilateral hernia , nasal surgery Past Anesthesia/Blood Transfusion Reactions: No Reported Reaction Past Psychological History: No Psychological Hx Reported Smoking Status: Never smoker Past Alcohol Use History: None Reported Past Drug Use History: None Reported - Past Family History Father Family Medical History: Diabetes Mellitus General Exam - General Exam Comments Initial Comments: Incision is draining malodorous discharge, grade purulent discharge from 2 sites Limitations: no limitations General appearance: alert, in no apparent distress Head exam: Present: atraumatic, normocephalic, normal inspection Eye exam: Present: normal appearance, PERRL, EOMI. Absent: scleral icterus, conjunctival injection, periorbital swelling ENT exam: Present: normal exam, mucous membranes moist Neck exam: Present: normal inspection. Absent: tenderness, meningismus, lymphadenopathy Respiratory exam: Present: normal lung sounds bilaterally. Absent: respiratory distress, wheezes, rales, rhonchi, stridor Cardiovascular Exam: Present: regular rate, normal rhythm, normal heart sounds. Absent: systolic murmur, diastolic murmur, rubs, gallop, clicks GI/Abdominal exam: Present: soft, normal bowel sounds. Absent: distended, tenderness, guarding, rebound, rigid Extremities exam: Present: normal inspection, full ROM, normal capillary refill. Absent: tenderness, pedal edema, joint swelling, calf tenderness Back exam: Present: normal inspection Neurological exam: Present: alert, oriented X3, CN II-XII intact Psychiatric exam: Present: normal affect, normal mood Skin exam: Present: warm, dry, intact, normal color. Absent: rash Course Vital Signs 02/15/23 02/16/23 21:13 00:25 Temperature 98.6 F Pulse Rate 96 85 Respiratory 20 18 Rate Blood Pressure 124/73 116/70 O2 Sat by Pulse 95 97 Oximetry - Reevaluation(s) Reevaluation #1: 02/15/23 23:56 Medical records reviewed Reevaluation #2: 02/15/23 23:56 Patient has no changes. Dinorah are removed by myself with minor wound dehiscence and increased drainage Reevaluation #3: 02/15/23 23:56 Patient informed results questions answered Reevaluation #4: 02/15/23 23:56 Was pt. sent in by a medical professional or institution? @ -no Did you speak to anyone other than the patient for history? @ -no Did you review nursing and triage notes? @ -agree Were old charts reviewed? @ -yes admission and surgical charts Differential Diagnosis? @ -prior EKG interpreted by me (3pts min.)? @ -yes X-rays interpreted by me (1pt min.)? @ -no CT interpreted by me (1pt min.)? @ -no U/S interpreted by me (1pt. min.)? @ -no What testing was considered but not performed? (CT, X-rays, U/S, labs)? Why? @ -no What meds were considered but not given? Why? @ -no Did you discuss the management of the patient with other professionals? @ -Yes he did speak with Dr. Gonzalez on how to take care of the wound, decision was made to remove dinorah and cleaned and packed the wound Did you reconcile home meds? @ -yes Was smoking cessation discussed for >3mins.? @ -no Was critical care preformed (if so, how long)? @ -no Were there social determinants of health that impacted care today? How? (Homele ssness, low income, unemployed, alcoholism, drug addiction, transportation, low edu. Level, literacy, decrease access to med. care, retirement, rehab)? @ -no Was there de-escalation of care discussed even if they declined? (Discuss DNR or withdrawal of care, Hospice)? @ -no What co-morbidities impacted this encounter? (DM, HTN, Smoking, COPD, CAD, Cancer, CVA, Hep., AIDS, mental health diagnosis, sleep apnea, morbid obesity)? @ -none Was patient admitted / discharged? @ -72 male to the emergency department for evaluation of drainage from wound, patient had abdominal surgery currently with drainage from abdominal wound malodorous purulent drainage. Patient is placed on antibiotics will be admitted for wound care, dinorah are removed with significant persistent pain and drainage Admitted Undiagnosed new problem with uncertain prognosis? @ -no Drug Therapy requiring intensive monitoring for toxicity (Heparin, Nitro, Insulin, Cardizem)? @ -no Were any procedures done? @ -Staple removal Diagnosis/symptom? @ -Postoperative wound incision infection, dehiscence Acute, or Chronic, or Acute on Chronic? @ -Acute Uncomplicated (without systemic symptoms) or Complicated (systemic symptoms)? @ -complicated Side effects of treatment? @ -no Exacerbation, Progression, or Severe Exacerbation] @ -no Poses a threat to life or bodily function? @ -yes infection can lead to sepsis Reevaluation #5: 02/15/23 23:56 Differential Abdominal Pain Men: Appendicitis, cholecystitis, diverticulosis, ischemic bowel, pancreatitis, hepatitis, UTI, gastroenteritis, AAA, incarcerated hernia, bowel obstruction, constipation, inflammatory bowel, hepatitis, peptic ulcer disease, splenic infarction, perforated viscus, testicular torsion, this is not meant to be an all-inclusive list - Consultations Consultation #1: Spoke with Dr. Gonzalez and [facility] physicians to admit this patient Medical Decision Making - Medical Decision Making 72 male to the emergency department for evaluation patient will be admitted for localized wound care IV antibiotics, patient is in no acute distress with no abdominal pain. No fever. I did remove patient dinorah here in the ER and administered wound care - Lab Data Result diagrams: 02/20/23 06:48 02/18/23 07:24 Lab Results 02/15/23 02/15/23 02/15/23 Range/Units 22:00 22:00 22:00 WBC 6.9 (3.8-10.6) k/uL RBC 3.54 L (4.30-5.90) m/uL Hgb 10.8 L (13.0-17.5) gm/dL Hct 33.7 L (39.0-53.0) % MCV 95.2 (80.0-100.0) fL MCH 30.5 (25.0-35.0) pg MCHC 32.0 (31.0-37.0) g/dL RDW 13.9 (11.5-15.5) % Plt Count 532 H (150-450) k/uL MPV 7.7 Neutrophils % 65 % Lymphocytes % 22 % Monocytes % 6 % Eosinophils % 4 % Basophils % 1 % Neutrophils # 4.5 (1.3-7.7) k/uL Lymphocytes # 1.5 (1.0-4.8) k/uL Monocytes # 0.4 (0-1.0) k/uL Eosinophils # 0.3 (0-0.7) k/uL Basophils # 0.1 (0-0.2) k/uL PT 10.6 (9.0-12.0) sec INR 1.0 (<1.2) APTT 24.8 (22.0-30.0) sec Sodium 136 L (137-145) mmol/L Potassium 5.0 (3.5-5.1) mmol/L Chloride 102 (98-107) mmol/L Carbon Dioxide 25 (22-30) mmol/L Anion Gap 9 mmol/L BUN 15 (9-20) mg/dL Creatinine 1.11 (0.66-1.25) mg/dL Est GFR (CKD-EPI)AfAm 75 (>60 ml/min/1.73 sqM) Est GFR (CKD-EPI)NonAf 65 (>60 ml/min/1.73 sqM) Glucose 102 H (74-99) mg/dL Plasma Lactic Acid [place] (0.7-2.0) mmol/L Calcium 8.8 (8.4-10.2) mg/dL Total Bilirubin 0.5 (0.2-1.3) mg/dL AST 53 (17-59) U/L ALT 62 H (4-49) U/L Alkaline Phosphatase 100 (38-126) U/L Total Protein 6.8 (6.3-8.2) g/dL Albumin 3.5 (3.5-5.0) g/dL Amylase 48 (30-110) U/L Lipase 51 (23-300) U/L 02/15/23 Range/Units 22:00 WBC (3.8-10.6) k/uL RBC (4.30-5.90) m/uL Hgb (13.0-17.5) gm/dL Hct (39.0-53.0) % MCV (80.0-100.0) fL MCH (25.0-35.0) pg MCHC (31.0-37.0) g/dL RDW (11.5-15.5) % Plt Count (150-450) k/uL MPV Neutrophils % % Lymphocytes % % Monocytes % % Eosinophils % % Basophils % % Neutrophils # (1.3-7.7) k/uL Lymphocytes # (1.0-4.8) k/uL Monocytes # (0-1.0) k/uL Eosinophils # (0-0.7) k/uL Basophils # (0-0.2) k/uL PT (9.0-12.0) sec INR (<1.2) APTT (22.0-30.0) sec Sodium (137-145) mmol/L Potassium (3.5-5.1) mmol/L Chloride (98-107) mmol/L Carbon Dioxide (22-30) mmol/L Anion Gap mmol/L BUN (9-20) mg/dL Creatinine (0.66-1.25) mg/dL Est GFR (CKD-EPI)AfAm (>60 ml/min/1.73 sqM) Est GFR (CKD-EPI)NonAf (>60 ml/min/1.73 sqM) Glucose (74-99) mg/dL Plasma Lactic Acid [place] 1.0 (0.7-2.0) mmol/L Calcium (8.4-10.2) mg/dL Total Bilirubin (0.2-1.3) mg/dL AST (17-59) U/L ALT (4-49) U/L Alkaline Phosphatase (38-126) U/L Total Protein (6.3-8.2) g/dL Albumin (3.5-5.0) g/dL Amylase (30-110) U/L Lipase (23-300) U/L Disposition Clinical Impression: Wound infection after surgery, Incisional abscess, Intra-abdominal abscess, Cellulitis, Wound dehiscence Disposition: ADMITTED IP TO THIS HOSP Condition: Stable Is patient prescribed a controlled substance at d/c from ED?: No Time of Disposition: 23:00
[2023-02-15 22:41] LABS: Basophils # (A) 0.1 k/uL (0-0.2); Basophils % (A) 1 %; Eosinophils # (A) 0.3 k/uL (0-0.7); Eosinophils % (A) 4 %; HCT 33.7 % (39.0-53.0); HGB 10.8 gm/dL (13.0-17.5); Lymphocytes # (A) 1.5 k/uL (1.0-4.8); Lymphocytes % (A) 22 %; MCH 30.5 pg (25.0-35.0); MCV 95.2 fL (80.0-100.0); Mean Platelet Volume 7.7; Monocytes # (A) 0.4 k/uL (0-1.0); Monocytes % (A) 6 %; Neutrophils # (A) 4.5 k/uL (1.3-7.7); Neutrophils % (A) 65 %; Platelet Count 532 k/uL (150-450); RBC 3.54 m/uL (4.30-5.90); RDW 13.9 % (11.5-15.5); WBC 6.9 k/uL (3.8-10.6)
[2023-02-15 22:42] LABS: Partial Thromboplastin Time 24.8 sec (22.0-30.0); Prothrombin Time 10.6 sec (9.0-12.0)
[2023-02-15 22:44] LABS: Albumin 3.5 g/dL (3.5-5.0); Calcium 8.8 mg/dL (8.4-10.2); Total Bilirubin 0.5 mg/dL (0.2-1.3); Total Protein 6.8 g/dL (6.3-8.2)
[2023-02-15] MEDS ORDERED: MORPHINE SULFATE 4 MG/ML SYRINGE IV PRN (23:23)
[2023-02-15] MEDS ORDERED: NALOXONE 0.4 MG/ML 1 ML VIAL IV PRN (23:23)
[2023-02-15] MEDS ORDERED: ONDANSETRON 4 MG/2 ML VIAL IVP PRN (23:23)
--- NOTE | 2023-02-16 03:45 | P.CONS ---
History of Present Illness - Reason for Consult Consult date: 02/16/23 - History of Present Illness The patient is a 72-year-old male with a PMH of obstructive sleep apnea who presents to the emergency room with abdominal pain and discharge. The patient was recently admitted to the hospital on 02/01 with complaints of abdominal pain, at which time he was noted to have enterocolitis/appendicitis, and subsequently underwent a right colectomy performed by Gen. surgery. The patient's stay was complicated by an episode of acute hypoxic respiratory failure. He was discharged home on a course of Keflex for intra-abdominal abscess. The patient reports that over the past few days, he has noted worsening pain at the incision site as well as foul smell, and increased drainage. He reports that his visiting nurses have told him that the wound is not healing appropriately and appears to be infected, which prompted him to come to the emergency room. He reports 3 out of 10 pain at the abdominal incision site. Denied experiencing nausea or vomiting. Also denied fever, chills, cough. Laboratory evaluation in the emergency room revealed a WBC count of 6.9, hemoglobin 10.8, sodium 136, potassium 4.0, lactic acid 1.0, glucose 102, and ALT 62. ED documentation reviewed and case discussed with ED provider. Review of systems: Pertinent positives and negatives as discussed in HPI, a complete review of systems was performed and all other systems are negative. Physical examination: Vital signs reviewed General: non toxic, no distress, appears at stated age, normal weight Derm: Midline abdominal incision with 2 areas of wound separation draining purulent foul-smelling discharge, minimal surrounding erythema, warm Head: atraumatic, normocephalic, symmetric Eyes: EOMI, no lid lag, anicteric sclera, pupils equal round reactive to light ENT: Nose and ears atraumatic Neck: No cervical lymphadenopathy, trachea midline, supple Mouth: no lip lesion, mucus membranes moist Cardiovascular: S1S2 reg, no murmur, positive dorsalis pedis pulse bilateral, no edema Lungs: CTA bilateral, no rhonchi, no rales, no accessory muscle use Abdominal: soft, nontender to palpation, no guarding Ext: muscle strength 5 out of 5 in all 4 extremities grossly, no gross muscle atrophy, no contractures, Neuro: CN II-XI grossly intact, no gross focal neuro deficits Psych: Alert, oriented, appropriate affect Assessment: Midline abdominal incisional wound infection Chronic conditions: DELMY, BPH Imaging: None performed Data Review: Laboratory evaluation in the emergency room revealed a WBC count of 6.9, hemoglobin 10.8, sodium 136, potassium 4.0, lactic acid 1.0, glucose 102, and ALT 62. ED documentation reviewed and case discussed with ED provider. Plan: Defer management of wound infection the primary surgical service Patient currently on Unasyn 3 g every 8 hourly IV Pain control with morphine 4 mg IV every 4 hours when necessary Continue with IV fluids with normal saline 130 mL/hr Follow-up blood cultures CPAP nightly Past Medical History Past Medical History: No Reported History Additional Past Medical History / Comment(s): abd abscess History of Any Multi-Drug Resistant Organisms: None Reported Past Surgical History: Appendectomy, Bowel Resection, Hernia Repair, Joint Replacement Additional Past Surgical History / Comment(s): right hip , bilateral hernia , nasal surgery Past Anesthesia/Blood Transfusion Reactions: No Reported Reaction Past Psychological History: No Psychological Hx Reported Smoking Status: Never smoker Past Alcohol Use History: None Reported Past Drug Use History: None Reported - Past Family History Father Family Medical History: Diabetes Mellitus Medications and Allergies Home Medications Medication Instructions Recorded Confirmed Type Multivitamins, Thera [Multivitamin 1 tab PO DAILY 02/01/23 02/15/23 History (formulary)] [place]-3/Dha/Epa/Fish Oil [Fish Oil 1 cap PO BID 02/01/23 02/15/23 History 1,000 mg Softgel] Prevagen 1 cap PO DAILY 02/01/23 02/15/23 History Acetaminophen Tab [Tylenol] 650 mg PO Q6HR PRN tab 02/11/23 02/15/23 Rx Amoxic-Pot Clav 875-125Mg 1 tab PO Q12HR 7 Days #14 tab 02/11/23 02/15/23 Rx [Augmentin 875-125] Pantoprazole [Protonix] 40 mg PO DAILY #30 tab 02/11/23 02/15/23 Rx Furosemide [Lasix] 20 mg PO DAILY 02/15/23 02/15/23 History HYDROcodone/APAP 5-325MG [[place] 1 tab PO Q4HR PRN 02/15/23 02/15/23 History 5-325] Tamsulosin [Flomax] 0.4 mg PO DAILY 02/15/23 02/15/23 History Allergies Allergy/AdvReac Type Severity Reaction Status Date / Time peanut Allergy Rapid Verified 02/15/23 22:13 Heart Rate tree nut [Nut] Allergy Rapid Verified 02/15/23 22:13 Heart Rate Sulfa (Sulfonamide AdvReac Rash/Hives Verified 02/15/23 22:13 Antibiotics) Physical Exam Vitals: Vital Signs Temp Pulse Pulse Resp BP BP Pulse Ox 02/16/23 01:34 98.5 F 82 16 112/69 97 02/16/23 00:25 85 18 116/70 97 02/15/23 21:13 98.6 F 96 20 124/73 95 Intake and Output 02/15/23 02/15/23 02/16/23 14:59 22:59 06:59 Other: Weight 79.379 kg 79.379 kg Results CBC & Chem 7: 02/15/23 22:00 02/15/23 22:00 Labs: Abnormal Lab Results - Last 24 Hours (Table) 02/15/23 02/15/23 Range/Units 22:00 22:00 RBC 3.54 L (4.30-5.90) m/uL Hgb 10.8 L (13.0-17.5) gm/dL Hct 33.7 L (39.0-53.0) % Plt Count 532 H (150-450) k/uL Sodium 136 L (137-145) mmol/L Glucose 102 H (74-99) mg/dL ALT 62 H (4-49) U/L
[2023-02-16] MEDS: AMPICILLIN-SULBACTAM 3 GM in SODIUM CHLORIDE 0.9% 100 ML IVPB SCH ×3 (05:49→21:14)
[2023-02-16 06:21] LABS: Basophils % (A) 1 %; Eosinophils # (A) 0.2 k/uL (0-0.7); Eosinophils % (A) 4 %; HCT 32.8 % (39.0-53.0); HGB 10.2 gm/dL (13.0-17.5); Hypochromasia Slight; Lymphocytes # (A) 1.1 k/uL (1.0-4.8); Lymphocytes % (A) 20 %; MCHC 31.2 g/dL (31.0-37.0); MCV 96.1 fL (80.0-100.0); Mean Platelet Volume 7.6; Monocytes # (A) 0.5 k/uL (0-1.0); Monocytes % (A) 10 %; Neutrophils # (A) 3.3 k/uL (1.3-7.7); Neutrophils % (A) 62 %; Platelet Count 482 k/uL (150-450); RBC 3.41 m/uL (4.30-5.90); RDW 13.9 % (11.5-15.5); WBC 5.3 k/uL (3.8-10.6)
--- NOTE | 2023-02-16 10:09 | P.GSCN ---
History of Present Illness Consult date: 02/16/23 Reason for Consult: Wound infection History of present illness: This a 72-year-old male who status post exploratory laparotomy for perforated a ppendicitis. Patient presents emergency room with increased drainage from his wound. The patient had a wound infection which was being treated with wet-to-dry dressings. Patient states the amount of drainage did increased yesterday. Past Medical History Past Medical History: No Reported History Additional Past Medical History / Comment(s): abd abscess History of Any Multi-Drug Resistant Organisms: None Reported Past Surgical History: Appendectomy, Bowel Resection, Hernia Repair, Joint Replacement Additional Past Surgical History / Comment(s): right hip , bilateral hernia , nasal surgery Past Anesthesia/Blood Transfusion Reactions: No Reported Reaction Past Psychological History: No Psychological Hx Reported Smoking Status: Never smoker Past Alcohol Use History: None Reported Past Drug Use History: None Reported - Past Family History Father Family Medical History: Diabetes Mellitus Medications and Allergies Home Medications Medication Instructions Recorded Confirmed Type Multivitamins, Thera [Multivitamin 1 tab PO DAILY 02/01/23 02/15/23 History (formulary)] [place]-3/Dha/Epa/Fish Oil [Fish Oil 1 cap PO BID 02/01/23 02/15/23 History 1,000 mg Softgel] Prevagen 1 cap PO DAILY 02/01/23 02/15/23 History Acetaminophen Tab [Tylenol] 650 mg PO Q6HR PRN tab 02/11/23 02/15/23 Rx Amoxic-Pot Clav 875-125Mg 1 tab PO Q12HR 7 Days #14 tab 02/11/23 02/15/23 Rx [Augmentin 875-125] Pantoprazole [Protonix] 40 mg PO DAILY #30 tab 02/11/23 02/15/23 Rx Furosemide [Lasix] 20 mg PO DAILY 02/15/23 02/15/23 History HYDROcodone/APAP 5-325MG [[place] 1 tab PO Q4HR PRN 02/15/23 02/15/23 History 5-325] Tamsulosin [Flomax] 0.4 mg PO DAILY 02/15/23 02/15/23 History Allergies Allergy/AdvReac Type Severity Reaction Status Date / Time peanut Allergy Rapid Verified 02/15/23 22:13 Heart Rate tree nut [Nut] Allergy Rapid Verified 02/15/23 22:13 Heart Rate Sulfa (Sulfonamide AdvReac Rash/Hives Verified 02/15/23 22:13 Antibiotics) Surgical - Exam Vital Signs Temp Pulse Resp BP Pulse Ox 98.6 F 96 20 124/73 95 02/15/23 21:13 02/15/23 21:13 02/15/23 21:13 02/15/23 21:13 02/15/23 21:13 - General well developed, well nourished, no distress - Eyes PERRL - ENT normal pinna - Neck no masses - Respiratory normal expansion - Cardiovascular Rhythm: regular - Abdomen Midline laparotomy scar. The inferior portion of the wound is open. There is a tunnel which extended cephalad approximately 10 cm. The fascia appears to be intact. Abdomen: soft, non tender Results - Labs 02/16/23 05:44 02/15/23 22:00 Abnormal Lab Results - Last 24 Hours (Table) 02/15/23 02/15/23 02/16/23 Range/Units 22:00 22:00 05:44 RBC 3.54 L 3.41 L (4.30-5.90) m/uL Hgb 10.8 L 10.2 L (13.0-17.5) gm/dL Hct 33.7 L 32.8 L (39.0-53.0) % Plt Count 532 H 482 H (150-450) k/uL Sodium 136 L (137-145) mmol/L Glucose 102 H (74-99) mg/dL ALT 62 H (4-49) U/L Diabetes panel 02/15/23 Range/Units 22:00 Sodium 136 L (137-145) mmol/L Potassium 5.0 (3.5-5.1) mmol/L Chloride 102 (98-107) mmol/L Carbon Dioxide 25 (22-30) mmol/L BUN 15 (9-20) mg/dL Creatinine 1.11 (0.66-1.25) mg/dL Glucose 102 H (74-99) mg/dL Calcium 8.8 (8.4-10.2) mg/dL AST 53 (17-59) U/L ALT 62 H (4-49) U/L Alkaline Phosphatase 100 (38-126) U/L Total Protein 6.8 (6.3-8.2) g/dL Albumin 3.5 (3.5-5.0) g/dL Calcium panel 02/15/23 Range/Units 22:00 Calcium 8.8 (8.4-10.2) mg/dL Albumin 3.5 (3.5-5.0) g/dL Pituitary panel 02/15/23 Range/Units 22:00 Sodium 136 L (137-145) mmol/L Potassium 5.0 (3.5-5.1) mmol/L Chloride 102 (98-107) mmol/L Carbon Dioxide 25 (22-30) mmol/L BUN 15 (9-20) mg/dL Creatinine 1.11 (0.66-1.25) mg/dL Glucose 102 H (74-99) mg/dL Calcium 8.8 (8.4-10.2) mg/dL Adrenal panel 02/15/23 Range/Units 22:00 Sodium 136 L (137-145) mmol/L Potassium 5.0 (3.5-5.1) mmol/L Chloride 102 (98-107) mmol/L Carbon Dioxide 25 (22-30) mmol/L BUN 15 (9-20) mg/dL Creatinine 1.11 (0.66-1.25) mg/dL Glucose 102 H (74-99) mg/dL Calcium 8.8 (8.4-10.2) mg/dL Total Bilirubin 0.5 (0.2-1.3) mg/dL AST 53 (17-59) U/L ALT 62 H (4-49) U/L Alkaline Phosphatase 100 (38-126) U/L Total Protein 6.8 (6.3-8.2) g/dL Albumin 3.5 (3.5-5.0) g/dL Assessment and Plan Assessment: Wound infection. Patient will continue local wound care. Once the drainage has decreased will consider wound VAC therapy.
[2023-02-16] MEDS ORDERED: HYDROcodone/APAP 5-325MG 1 EACH TAB PO PRN (13:50)
[2023-02-16] MEDS ORDERED: TAMSULOSIN 0.4 MG CAP.ER.24H PO STA (14:13)
[2023-02-17] MEDS: AMPICILLIN-SULBACTAM 3 GM in SODIUM CHLORIDE 0.9% 100 ML IVPB SCH ×3 (06:07→17:48)
[2023-02-17] MEDS: ACETAMINOPHEN TAB 325 MG TAB PO PRN ×3 (06:11→21:28)
[2023-02-17] MEDS: PANTOPRAZOLE 40 MG TABLET PO SCH (07:55)
[2023-02-17] MEDS: FUROSEMIDE 20 MG TAB PO SCH (07:55)
[2023-02-17] MEDS: TAMSULOSIN 0.4 MG CAP.ER.24H PO SCH (07:56)
--- NOTE | 2023-02-17 10:48 | P.PN ---
Progress Note - Text Progress Note Date: 02/17/23 Patient [place] stable. He has minimal incisional pain. His wound is currently packed with wet-to-dry Kerlix dressing. On exam vital signs are stable. Abdomen soft. Wound shows some mild purulent drainage. Patient will continue local wound care. He'll continue IV antibiotics. Anticipate wound VAC in the next day or 2.
--- NOTE | 2023-02-17 14:11 | P.PN ---
Subjective Progress Note Date: 02/17/23 Patient is a 72-year-old with history of obstructive sleep apnea who was recently hospitalized here from 02/02 through 02/11 for appendicitis with abscess and right colectomy with primary anastomosis he was discharged on a course of Augmentin. He presented to the ER with complaints of abdominal pain and drainage at his prior incision site. He was admitted to surgery were consulted for medical management. Patient seen and examined at bedside. He is concerned as he doesn't know his plan of care. We discussed that we are evaluating him for wound infection versus dehisced. He denies any abdominal pain. He does state he has copious amounts of drainage at his incision site. He denies any nausea or vomiting, he is having loose stools but not greater than 3 per day. Vital signs reviewed General: nontoxic, no distress, appears at stated age Cardiovascular: S1S2 reg, no murmur, positive posterior tibial pulse bilateral, Lungs: Diffuse expiratory wheeze bilateral, no accessory muscle use Abdominal: soft, nontender to palpation, no guarding, no appreciable organomegaly and dressing removed from midline abdominal wound, serosanguineous drainage noted, no malodor, no erythema around the incision site Ext: no gross muscle atrophy, no edema, no contractures Neuro: CN II-XI grossly intact, no focal neuro deficits Psych: Alert, oriented, appropriate affect Assessment: Midline wound dehiscence versus infection status post Acute blood loss anemia, anticipated outcome of surgery Thrombocytosis, reactive BPH Imaging: None new Data Review: T-max last 24 hours 98.9 No new Labs available for today Plan: -Continue with Unasyn 3 g every 6 hours -Continue with Protonix 40 mg daily -Continue Flomax 0.4 mg daily -Patient has options of [place] 5/325 every 4 hours or morphine 4 mg every 4 hours for pain but has not needed to utilize either -General surgery note reviewed: Await wound cultures, possible need for wound VAC on discharge -Await infectious disease consultation -Repeat CBC in a.m. -Add Lovenox for DVT prophylaxis Thank you for allowing us to participate in the care of this pleasant patient. Do not hesitate to contact us with questions. Someone can be reached from the [facility] hospitalist group all hours of the day at [phone] or via [employer]. This dictation was prepared using [employer] voice recognition software. Though every attempt is made to correct errors during during dictation some may still exist. Objective - Vital Signs Vital signs: Vital Signs Temp 98.9 F 02/17/23 07:24 Pulse 103 H 02/17/23 08:45 Resp 16 02/17/23 08:45 BP 120/68 02/17/23 07:24 Pulse Ox 95 02/17/23 07:24 FiO2 Intake & Output 02/16/23 02/17/23 02/17/23 18:59 06:59 18:59 Intake Total 600 590 Balance 600 590 Intake: Oral 600 590 Other: Voiding Method Toilet Toilet Toilet # Voids 3 3 - Labs CBC & Chem 7: 02/16/23 05:44 02/15/23 22:00 Labs: Microbiology - Last 24 Hours (Table) 02/16/23 12:10 Anaerobic Culture - Preliminary Abdominal Fluid 02/16/23 12:10 Wound Culture - Preliminary Abdomen
--- NOTE | 2023-02-17 20:52 | P.CONS ---
History of Present Illness - Reason for Consult Consult date: 02/17/23 - History of Present Illness Patient is a 72-year-old male with a past medical history significant for appendicitis with abscess s/p right colectomy abdominal cultures were negative patient was treated with IV Unasyn and subsequently charged home on oral Augmentin and the patient was discharged home on 02/11/2023 patient is presenting back to [facility] ER on 02/12/2023 concerning for increasing drainage from his incision site and per recommendation of his home care nurse concerning for infection patient complaining of drainage currently has got worse since the patient had discharge from hospital has been complaining of abdominal pain over the incision site to be more of the dull aching at times sharp 5 to 6- 10 and no radiation radiation patient denies high-grade fever or any chills and no fever has been recorded during this hospital stay patient did have a normal white count kidney function was normal ALT was mildly elevated abdominal cultures obtained currently pending patient was started on Unasyn 3 g every 8 hours infectious disease was consulted for further management of antibiotic ther apy and local wound care currently local wound care is held wet-to-dry packing of the wound Past Medical History Past Medical History: No Reported History Additional Past Medical History / Comment(s): abd abscess History of Any Multi-Drug Resistant Organisms: None Reported Past Surgical History: Appendectomy, Bowel Resection, Hernia Repair, Joint Replacement Additional Past Surgical History / Comment(s): right hip , bilateral hernia , nasal surgery Past Anesthesia/Blood Transfusion Reactions: No Reported Reaction Past Psychological History: No Psychological Hx Reported Smoking Status: Never smoker Past Alcohol Use History: None Reported Past Drug Use History: None Reported - Past Family History Father Family Medical History: Diabetes Mellitus Medications and Allergies Home Medications Medication Instructions Recorded Confirmed Type Multivitamins, Thera [Multivitamin 1 tab PO DAILY 02/01/23 02/15/23 History (formulary)] [place]-3/Dha/Epa/Fish Oil [Fish Oil 1 cap PO BID 02/01/23 02/15/23 History 1,000 mg Softgel] Prevagen 1 cap PO DAILY 02/01/23 02/15/23 History Acetaminophen Tab [Tylenol] 650 mg PO Q6HR PRN tab 02/11/23 02/15/23 Rx Amoxic-Pot Clav 875-125Mg 1 tab PO Q12HR 7 Days #14 tab 02/11/23 02/15/23 Rx [Augmentin 875-125] Pantoprazole [Protonix] 40 mg PO DAILY #30 tab 02/11/23 02/15/23 Rx Furosemide [Lasix] 20 mg PO DAILY 02/15/23 02/15/23 History HYDROcodone/APAP 5-325MG [[place] 1 tab PO Q4HR PRN 02/15/23 02/15/23 History 5-325] Tamsulosin [Flomax] 0.4 mg PO DAILY 02/15/23 02/15/23 History Allergies Allergy/AdvReac Type Severity Reaction Status Date / Time peanut Allergy Rapid Verified 02/15/23 22:13 Heart Rate tree nut [Nut] Allergy Rapid Verified 02/15/23 22:13 Heart Rate Sulfa (Sulfonamide AdvReac Rash/Hives Verified 02/15/23 22:13 Antibiotics) Physical Exam Vitals: Vital Signs Temp Pulse Resp BP Pulse Ox 02/17/23 08:45 103 H 16 02/17/23 07:24 98.9 F 103 H 16 120/68 95 02/17/23 02:59 98 F 85 16 108/65 95 02/16/23 20:00 97 16 02/16/23 19:54 98.2 F 97 16 116/69 97 02/16/23 13:55 98.1 F 90 16 149/81 99 Intake and Output 02/16/23 02/17/23 02/17/23 22:59 06:59 14:59 Intake Total 360 590 Balance 360 590 Intake: Oral 360 590 Other: Voiding Method Toilet Toilet # Voids 3 3 Results CBC & Chem 7: 02/16/23 05:44 02/15/23 22:00 Labs: Microbiology - Last 24 Hours (Table) 02/16/23 12:10 Anaerobic Culture - Preliminary Abdominal Fluid 02/16/23 12:10 Wound Culture - Preliminary Abdomen Assessment and Plan Plan: 1patient presented to hospital with abdominal wound dehiscence in this patient with a recent diagnosis of appendicitis with periappendicular abscess s/p right hemicolectomy patient did have a culture on his last visit those were negative now presenting with dehiscence of the wound however no fever White count has been normal question of possible mechanical dehiscence of local infectious anjelica ology 2-local culture obtained and results will be followed 3-local wound care will be switched over to Aquacel silver packing of the wound and we discussed wound VAC with the surgeon 4-adjust dose of Unasyn to 3 g every 6 hours We will follow on clinical condition and cultures to further adjust medication if needed Thank you for this consultation we will follow the patient along with you Time with Patient: Greater than 30
[2023-02-18] MEDS: AMPICILLIN-SULBACTAM 3 GM in SODIUM CHLORIDE 0.9% 100 ML IVPB SCH ×3 (00:28→12:50)
[2023-02-18] MEDS: PANTOPRAZOLE 40 MG TABLET PO SCH (09:10)
[2023-02-18] MEDS: TAMSULOSIN 0.4 MG CAP.ER.24H PO SCH (09:10)
[2023-02-18] MEDS: FUROSEMIDE 20 MG TAB PO SCH (09:10)
[2023-02-18] MEDS: ENOXAPARIN 40 MG/0.4 ML SYRINGE SQ SCH (09:10)
--- NOTE | 2023-02-18 09:51 | P.PN ---
Progress Note - Text Progress Note Date: 02/18/23 Patient is stable. His wound cultures are still pending. On exam vital signs are stable. Abdomen soft. Postoperative wound infection related to perforated appendicitis.. Patient will continue local wound care. We anticipate outpatient wound VAC therapy once his wound is clean.
[2023-02-18] MEDS: NYSTATIN 100,000 UNIT/GM POWD 15 GM TOPICAL SCH ×3 (09:57→22:13)
[2023-02-18 11:40] LABS: HCT 35.5 % (39.6-50.0); HGB 11.1 g/dL (13.0-17.0); MCH 29.6 pg (27.0-32.0); MCHC 31.3 g/dL (32.0-37.0); MCV 94.7 fL (80.0-97.0); Mean Platelet Volume 9.4 fL (9.5-12.2); NRBC Per 100 WBC 0 /100 WBCS (0.0-0.0); Platelet Count 540 X 10*3/uL (140-440); RBC 3.75 X 10*6/uL (4.40-5.60); RDW 14.5 % (11.5-14.5); WBC 5.81 X 10*3/uL (4.50-10.00)
[2023-02-18 12:06] LABS: African American GFR (CKD) 85.6 (60.0-200.0); Anion Gap 9.9 mmol/L (10.00-18.00); Calcium 9.3 mg/dL (8.7-10.3); Carbon Dioxide 27.1 mmol/L (20.0-27.5); Non-African American GFR(CKD) 73.8 (60.0-200.0); Potassium 4.5 mmol/L (3.5-5.5)
--- NOTE | 2023-02-18 14:24 | P.PN ---
Subjective Progress Note Date: 02/18/23 Principal diagnosis: Abdominal wound infection Patient is a 72-year-old male with a past medical history significant for appendicitis with abscess s/p right colectomy abdominal cultures were negative patient was treated with IV Unasyn and subsequently charged home on or al Augmentin and the patient was discharged home on 02/11/2023 patient is presenting back to [facility] ER on 02/12/2023 concerning for increasing drainage from his incision site. on today's evaluation that is 02/18/2023, the patient had denies having any fever or any chills, the patient lower abdominal pain has decreased in intensity and overall drainage has improved no chest pain or shortness of breath or cough Objective - Vital Signs Vital signs: Vital Signs Temp 98.2 F 02/18/23 11:51 Pulse 84 02/18/23 11:51 Resp 14 02/18/23 11:51 BP 119/76 02/18/23 11:51 Pulse Ox 99 02/18/23 11:51 FiO2 Intake & Output 02/17/23 02/18/23 02/18/23 18:59 06:59 18:59 Intake Total 360 590 Balance 360 590 Intake: Oral 360 590 Other: Voiding Method Toilet Toilet # Voids 3 2 # Bowel Movements 1 - Exam GENERAL DESCRIPTION: An elderly male lying in bed in no distress RESPIRATORY SYSTEM: Unlabored breathing , decreased breath sounds at bases HEART: S1 S2 regular rate and rhythm , ABDOMEN: Soft , lower abdominal wound with no significant slough tissue surrounding redness or foul-smelling EXTREMITIES: No edema feet - Labs CBC & Chem 7: 02/18/23 07:24 02/18/23 07:24 Labs: Abnormal Lab Results - Last 24 Hours (Table) 02/18/23 02/18/23 Range/Units 07:24 07:24 RBC 3.75 L (4.40-5.60) X 10*6/uL Hgb 11.1 L (13.0-17.0) g/dL Hct 35.5 L (39.6-50.0) % MCHC 31.3 L (32.0-37.0) g/dL Plt Count 540 H (140-440) X 10*3/uL MPV 9.4 L (9.5-12.2) fL Anion Gap 9.90 L (10.00-18.00) mmol/L BUN/Creatinine Ratio 10.00 L (12.00-20.00) Ratio Microbiology - Last 24 Hours (Table) 02/15/23 22:00 Blood Culture - Preliminary Blood 02/16/23 12:10 Gram Stain - Preliminary Abdomen Wound Culture - Preliminary Gram Neg Bacilli 02/16/23 12:10 Anaerobic Culture - Preliminary Abdominal Fluid Assessment and Plan (1) Incisional abscess Current Visit: Yes Status: Acute Code(s): T81.49XA - INFECTION FOLLOWING A PROCEDURE, OTHER SURGICAL SITE, INIT SNOMED Code(s): 23778100 Plan: 1patient presented to hospital with abdominal wound dehiscence in this patient with a recent diagnosis of appendicitis with periappendicular abscess s/p right hemicolectomy patient did have a culture on his last visit those were negative now presenting with dehiscence of the wound however no fever White count has been normal question of possible mechanical dehiscence of local infectious etiology 2-local culture obtained and currently growing gram-negative bacilli 3-local wound care will be switched over to Aquacel silver packing of the wound to be changed daily 4We will switch antibiotics to Zosyn while waiting for the cultures to finalize Time with Patient: Less than 30
[2023-02-18] MEDS: ACETAMINOPHEN TAB 325 MG TAB PO PRN ×2 (14:47→22:10)
--- NOTE | 2023-02-18 15:17 | P.PN ---
Subjective Progress Note Date: 02/18/23 (delayed charting seen at 0910) Patient is a 72-year-old with history of obstructive sleep apnea who was recently hospitalized here from 02/02 through 02/11 for appendicitis with abscess and right colectomy with primary anastomosis he was discharged on a course of Augmentin. He presented to the ER with complaints of abdominal pain and drainage at his prior incision site. He was admitted to surgery were consulted for medical management. Patient seen and examined at bedside. He does complain of some itching in his right groin area and soak through his abdominal dressing. He denies any nausea or vomiting. He is having loose stools but they are infrequent. He is concern that we have been giving him a sulfa-based antibiotic administered him he is not on a sulfa-based antibiotic. He has been receiving Unasyn. Vital signs reviewed General: nontoxic, no distress, appears at stated age Cardiovascular: S1S2 reg, no murmur, positive posterior tibial pulse bilateral, Lungs: Diffuse expiratory wheeze bilateral, no accessory muscle use Abdominal: soft, nontender to palpation, no guarding, no appreciable organomegaly, Abdominal dressing with serosanguineous soak through, right groin with macular lesion with white plaquing Ext: no gross muscle atrophy, no edema, no contractures Neuro: CN II-XI grossly intact, no focal neuro deficits Psych: Alert, oriented, appropriate affect Assessment: Midline wound dehiscence versus infection status post Acute blood loss anemia, anticipated outcome of surgery Candidal infection of the groin Thrombocytosis, reactive BPH Imaging: None new Data Review: Vitals reviewed in T-max last 24 hours 99.7 Labs reviewed and hemoglobin 11.1, platelets 540 Wound culture with gram-negative bacilli Plan: -Zosyn D # 1, Had Unasyn for 2 days -Continue with Protonix 40 mg daily -Continue Flomax 0.4 mg daily -Infectious disease no reviewed: Transitioned to Zosyn while awaiting for cultures to formalized. -Case discussed with Dr. Gonzalez anticipate patient will need outpatient wound VAC once infection improved -Start nystatin powder -Patient has options of [place] 5/325 every 4 hours or morphine 4 mg every 4 hours for pain but has not needed to utilize either -General surgery note reviewed: Await wound cultures, possible need for wound VAC on discharge -Await infectious disease consultation -Repeat CBC in a.m. -[facility] Thank you for allowing us to participate in the care of this pleasant patient. Do not hesitate to contact us with questions. Someone can be reached from the [facility] hospitalist group all hours of the day at [phone] or via perfect serve. This dictation was prepared using [employer] voice recognition software. Though every attempt is made to correct errors during during dictation some may still exist. Objective - Vital Signs Vital signs: Vital Signs Temp 98.2 F 02/18/23 11:51 Pulse 84 02/18/23 11:51 Resp 14 02/18/23 11:51 BP 119/76 02/18/23 11:51 Pulse Ox 99 02/18/23 11:51 FiO2 Intake & Output 02/17/23 02/18/23 02/18/23 18:59 06:59 18:59 Intake Total 360 590 Balance 360 590 Intake: Oral 360 590 Other: Voiding Method Toilet Toilet # Voids 3 2 # Bowel Movements 1 - Labs CBC & Chem 7: 02/18/23 07:24 02/18/23 07:24 Labs: Abnormal Lab Results - Last 24 Hours (Table) 02/18/23 02/18/23 Range/Units 07:24 07:24 RBC 3.75 L (4.40-5.60) X 10*6/uL Hgb 11.1 L (13.0-17.0) g/dL Hct 35.5 L (39.6-50.0) % MCHC 31.3 L (32.0-37.0) g/dL Plt Count 540 H (140-440) X 10*3/uL MPV 9.4 L (9.5-12.2) fL Anion Gap 9.90 L (10.00-18.00) mmol/L BUN/Creatinine Ratio 10.00 L (12.00-20.00) Ratio Microbiology - Last 24 Hours (Table) 02/15/23 22:00 Blood Culture - Preliminary Blood 02/16/23 12:10 Gram Stain - Preliminary Abdomen Wound Culture - Preliminary Gram Neg Bacilli
[2023-02-18] MEDS: PIPERACILLIN-TAZOBACTAM 3.375 GM in SODIUM CHLORIDE 0.9% 100 ML IVPB SCH ×2 (15:57→22:11)
[2023-02-19] MEDS: PIPERACILLIN-TAZOBACTAM 3.375 GM in SODIUM CHLORIDE 0.9% 100 ML IVPB SCH ×3 (08:04→23:33)
[2023-02-19] MEDS: MULTIVITAMINS, THERA 1 EACH TAB PO SCH (08:05)
[2023-02-19] MEDS: TAMSULOSIN 0.4 MG CAP.ER.24H PO SCH (08:05)
[2023-02-19] MEDS: NYSTATIN 100,000 UNIT/GM POWD 15 GM TOPICAL SCH ×3 (08:05→21:17)
[2023-02-19] MEDS: FUROSEMIDE 20 MG TAB PO SCH (08:05)
[2023-02-19] MEDS: PANTOPRAZOLE 40 MG TABLET PO SCH (08:05)
[2023-02-19] MEDS: ENOXAPARIN 40 MG/0.4 ML SYRINGE SQ SCH (08:05)
[2023-02-19 09:10] VITALS: RESP 16
[2023-02-19 11:58] LABS: HCT 35.4 % (39.0-53.0); HGB 11.2 gm/dL (13.0-17.5); Hypochromasia Slight; MCH 29.7 pg (25.0-35.0); MCHC 31.5 g/dL (31.0-37.0); MCV 94.2 fL (80.0-100.0); Mean Platelet Volume 7.4; Platelet Count 464 k/uL (150-450); RBC 3.76 m/uL (4.30-5.90)
--- NOTE | 2023-02-19 12:35 | P.PN ---
Subjective Progress Note Date: 02/19/23 Principal diagnosis: Abdominal wound infection Patient is a 72-year-old male with a past medical history significant for appendicitis with abscess s/p right colectomy abdominal cultures were negative patient was treated with IV Unasyn and subsequently charged home on or al Augmentin and the patient was discharged home on 02/11/2023 patient is presenting back to [facility] ER on 02/12/2023 concerning for increasing drainage from his incision site. on today's evaluation that is 02/19/2023, the patient remains to be afebrile, the patient lower abdominal pain has decreased in intensity and overall drainage has improved , the patient denies chest pain or shortness of breath or cough Objective - Vital Signs Vital signs: Vital Signs Temp 98.2 F 02/19/23 09:05 Pulse 72 02/19/23 09:05 Resp 16 02/19/23 09:05 BP 122/62 02/19/23 09:05 Pulse Ox 97 02/19/23 09:05 FiO2 Intake & Output 02/18/23 02/19/23 02/19/23 18:59 06:59 18:59 Intake Total 360 Balance 360 Intake: Oral 360 Other: Voiding Method Toilet # Voids 1 2 - Exam GENERAL DESCRIPTION: An elderly male lying in bed in no distress RESPIRATORY SYSTEM: Unlabored breathing , decreased breath sounds at bases HEART: S1 S2 regular rate and rhythm , ABDOMEN: Soft , lower abdominal wound is currently dressed EXTREMITIES: No edema feet - Labs CBC & Chem 7: 02/19/23 11:30 02/18/23 07:24 Labs: Abnormal Lab Results - Last 24 Hours (Table) 02/18/23 02/18/23 Range/Units 07:24 07:24 RBC 3.75 L (4.40-5.60) X 10*6/uL Hgb 11.1 L (13.0-17.0) g/dL Hct 35.5 L (39.6-50.0) % MCHC 31.3 L (32.0-37.0) g/dL Plt Count 540 H (140-440) X 10*3/uL MPV 9.4 L (9.5-12.2) fL Anion Gap 9.90 L (10.00-18.00) mmol/L BUN/Creatinine Ratio 10.00 L (12.00-20.00) Ratio Microbiology - Last 24 Hours (Table) 02/16/23 12:10 Gram Stain - Final Abdomen Wound Culture - Final Escherichia coli 02/15/23 22:00 Blood Culture - Preliminary Blood Assessment and Plan (1) Incisional abscess Current Visit: Yes Status: Acute Code(s): T81.49XA - INFECTION FOLLOWING A PROCEDURE, OTHER SURGICAL SITE, INIT SNOMED Code(s): 12735561 Plan: 1patient presented to hospital with abdominal wound dehiscence in this patient with a recent diagnosis of appendicitis with periappendicular abscess s/p right hemicolectomy patient did have a culture on his last visit those were negative now presenting with dehiscence of the wound however no fever White count has been normal question of possible mechanical dehiscence of local infectious etiology 2-local culture obtained growing E. coli which is a sensitive pathogen 3-local wound care will be switched over to Aquacel silver packing of the wound to be changed daily 4patient to continue with Zosyn however will be able to finish therapy with oral Augmentin 7-10 days and close out patient follow-up Time with Patient: Less than 30
--- NOTE | 2023-02-19 14:04 | P.PN ---
Subjective Progress Note Date: 02/19/23 CHIEF COMPLAINT: Postoperative wound infection HISTORY OF PRESENT ILLNESS: Patient continues to have drainage from his abdominal incision. His pain showing improvement. He denies any nausea or vomiting. Tolerating diet. Afebrile. Wound culture did grow E. coli. Patient followed by infectious disease. Infectious disease recommending Augmentin for 7-10 days outpatient. WBC is 6.0 Hgb 11.2 plt 464 Patient seen and examined with Dr. correa PHYSICAL EXAM: VITAL SIGNS: Reviewed. GENERAL: Well-developed in no acute distress. ABDOMEN: Soft. Nondistended. Mild tenderness around incision. No erythema. Abdominal incision with inferior portion of incision open there is tunneling. NEUROLOGIC: Alert and oriented. Cranial nerves II through XII grossly intact. ASSESSMENT: 1. Postoperative wound infection related to perforated appendicitis PLAN: -Continue antibiotics per infectious disease -Continue local wound care -Anticipate discharge tomorrow -Recommend outpatient wound VAC Physician Construction Quality Control Manager note has been reviewed by physician. Signing provider agrees with the documented findings, assessment, and plan of care. Objective - Vital Signs Vital signs: Vital Signs Temp 98.2 F 02/19/23 09:05 Pulse 72 02/19/23 09:05 Resp 16 02/19/23 09:05 BP 122/62 02/19/23 09:05 Pulse Ox 97 02/19/23 09:05 FiO2 Intake & Output 02/18/23 02/19/23 02/19/23 18:59 06:59 18:59 Intake Total 360 Balance 360 Intake: Oral 360 Other: Voiding Method Toilet # Voids 1 2 - Labs CBC & Chem 7: 02/19/23 11:30 02/18/23 07:24 Labs: Abnormal Lab Results - Last 24 Hours (Table) 02/19/23 Range/Units 11:30 RBC 3.76 L (4.30-5.90) m/uL Hgb 11.2 L (13.0-17.5) gm/dL Hct 35.4 L (39.0-53.0) % Plt Count 464 H (150-450) k/uL Microbiology - Last 24 Hours (Table) 02/16/23 12:10 Gram Stain - Final Abdomen Wound Culture - Final Escherichia coli 02/15/23 22:00 Blood Culture - Preliminary Blood
--- NOTE | 2023-02-19 18:37 | P.PN ---
Subjective Progress Note Date: 02/19/23 (Delayed charting seen at 0845) Patient is a 72-year-old with history of obstructive sleep apnea who was recently hospitalized here from 02/02 through 02/11 for appendicitis with abscess and right colectomy with primary anastomosis he was discharged on a course of Augmentin. He presented to the ER with complaints of abdominal pain and drainage at his prior incision site. He was admitted to surgery were consulted for medical management. Patient seen and examined at bedside. He states that his groin is slightly less itchy than yesterday. He denies any nausea, vomiting. He continues to have loose stools mostly after eating however they are not distressing to him at this time. We did discuss that he will need a wound VAC with home care on discharge. Vital signs reviewed General: nontoxic, no distress, appears at stated age Cardiovascular: S1S2 reg, no murmur, positive posterior tibial pulse bilateral, Lungs: Diffuse expiratory wheeze bilateral, no accessory muscle use Abdominal: soft, nontender to palpation, no guarding, no appreciable organomegaly, Abdominal dressing with serosanguineous soak through, right groin with macular lesion with white plaquing Ext: no gross muscle atrophy, no edema, no contractures Neuro: CN II-XI grossly intact, no focal neuro deficits Psych: Alert, oriented, appropriate affect Assessment: E. Coli post-op wound infection Acute blood loss anemia, anticipated outcome of surgery Candidal infection of the groin Thrombocytosis, reactive BPH Imaging: None new Data Review: Vital signs reviewed temperature 98.2, respirations 16, pulse 72, blood pressure 122/62, O2 sat 97% on room air Laboratory analysis remarkable for hemoglobin 11.2, platelets 464-both relatively unchanged from yesterday Culture consistent with E. coli sensitive to ampicillin/sulbactam Plan: -Zosyn D #2, Had Unasyn for 2 days -Continue with Protonix 40 mg daily -General surgery note reviewed: Continue with antibiotics, outpatient wound VAC -Infectious disease note reviewed: Continue Zosyn therapy, finished with Augmentin 7-10 days and close outpatient follow-up. -Continue Flomax 0.4 mg daily - nystatin powder -Patient has options of [place] 5/325 every 4 hours or morphine 4 mg every 4 hours for pain but has not needed to utilize either -Repeat CBC in a.m. -Lovenox for DVT prophylaxis Thank you for allowing us to participate in the care of this pleasant patient. Do not hesitate to contact us with questions. Someone can be reached from the [facility] hospitalist group all hours of the day at [phone] or via perfect serve. This dictation was prepared using [employer] voice recognition software. Though every attempt is made to correct errors during during dictation some may still exist. Objective - Vital Signs Vital signs: Vital Signs Temp 98.2 F 02/19/23 14:13 Pulse 85 02/19/23 14:13 Resp 16 02/19/23 14:13 BP 106/67 02/19/23 14:13 Pulse Ox 95 02/19/23 14:13 FiO2 Intake & Output 02/18/23 02/19/23 02/19/23 18:59 06:59 18:59 Intake Total 360 Balance 360 Intake: Oral 360 Other: Voiding Method Toilet # Voids 1 2 - Labs CBC & Chem 7: 02/19/23 11:30 02/18/23 07:24 Labs: Abnormal Lab Results - Last 24 Hours (Table) 02/19/23 Range/Units 11:30 RBC 3.76 L (4.30-5.90) m/uL Hgb 11.2 L (13.0-17.5) gm/dL Hct 35.4 L (39.0-53.0) % Plt Count 464 H (150-450) k/uL Microbiology - Last 24 Hours (Table) 02/16/23 12:10 Gram Stain - Final Abdomen Wound Culture - Final Escherichia coli 02/15/23 22:00 Blood Culture - Preliminary Blood
[2023-02-20 07:33] LABS: HCT 36.2 % (39.0-53.0); HGB 11.3 gm/dL (13.0-17.5); Hypochromasia Slight; MCH 29.2 pg (25.0-35.0); MCHC 31.2 g/dL (31.0-37.0); MCV 93.4 fL (80.0-100.0); Mean Platelet Volume 7.3; Platelet Count 494 k/uL (150-450); RBC 3.87 m/uL (4.30-5.90); RDW 13.9 % (11.5-15.5); WBC 5.3 k/uL (3.8-10.6)
[2023-02-20] MEDS: PIPERACILLIN-TAZOBACTAM 3.375 GM in SODIUM CHLORIDE 0.9% 100 ML IVPB SCH (08:13)
[2023-02-20] MEDS: ENOXAPARIN 40 MG/0.4 ML SYRINGE SQ SCH (08:13)
[2023-02-20] MEDS: TAMSULOSIN 0.4 MG CAP.ER.24H PO SCH (08:14)
[2023-02-20] MEDS: MULTIVITAMINS, THERA 1 EACH TAB PO SCH (08:14)
[2023-02-20] MEDS: PANTOPRAZOLE 40 MG TABLET PO SCH (08:14)
[2023-02-20] MEDS: NYSTATIN 100,000 UNIT/GM POWD 15 GM TOPICAL SCH (08:14)
[2023-02-20] MEDS: FUROSEMIDE 20 MG TAB PO SCH (08:14)
[2023-02-20] MEDS: ACETAMINOPHEN TAB 325 MG TAB PO PRN (10:43)
[2023-02-20 11:37] VITALS: BP 110/66; PULSE 80; TEMP 98.4
--- NOTE | 2023-02-20 14:18 | P.PN ---
Subjective Progress Note Date: 02/20/23 (delayed charting seen at 0815) Patient is a 72-year-old with history of obstructive sleep apnea who was recently hospitalized here from 02/02 through 02/11 for appendicitis with abscess and right colectomy with primary anastomosis he was discharged on a course of Augmentin. He presented to the ER with complaints of abdominal pain and drainage at his prior incision site. He was admitted to surgery were consulted for medical management. Patient seen and examined at bedside. He is not planning abdominal pain, chest pain, or shortness of breath. We discussed his antibiotic sensitivity results. We discussed his wound VAC and home care orders. All questions were answered. Vital signs reviewed General: nontoxic, no distress, appears at stated age Cardiovascular: S1S2 reg, no murmur, positive posterior tibial pulse bilateral, Lungs: Diffuse expiratory wheeze bilateral, no accessory muscle use Abdominal: soft, nontender to palpation, no guarding, no appreciable organomega ly, Abdominal dressing with serosanguineous soak through, right groin with macular lesion with white plaquing Ext: no gross muscle atrophy, no edema, no contractures Neuro: CN II-XI grossly intact, no focal neuro deficits Psych: Alert, oriented, appropriate affect Assessment: E. Coli post-op wound infection Acute blood loss anemia, anticipated outcome of surgery Candidal infection of the groin Thrombocytosis, reactive BPH Imaging: None new Data Review: Vital signs reviewed and temperature 98.2, pulse 81, respirations 16, blood pressure 125/75, O2 sat 97% on room air Labs reviewed and remarkable for hemoglobin 11.3, 11.2 yesterday, platelets 494, 464 yesterday Plan: -Case discussed with Mariel physician assistant director of public works for general surgery and patient will have outpatient wound VAC placed. He'll complete a course of Augmentin. -Home medication reconciliation addressed. He can resume his Lasix, Protonix, and Flomax. -Prescription was given for nystatin 100,000 units to groin 3 times daily for 10 days -Patient is medically optimized for discharge. -D/W Dr. Kimbrough Augmentin 7-10 days and close outpatient follow-up. -Continue Flomax 0.4 mg daily Thank you for allowing us to participate in the care of this pleasant patient. Do not hesitate to contact us with questions. Someone can be reached from the [facility] hospitalist group all hours of the day at [phone] or via perfect serve. This dictation was prepared using [employer] voice recognition software. Though every attempt is made to correct errors during during dictation some may still exist. Objective - Vital Signs Vital signs: Vital Signs Temp 98.4 F 02/20/23 11:04 Pulse 80 02/20/23 11:04 Resp 16 02/20/23 11:04 BP 110/66 02/20/23 11:04 Pulse Ox 97 02/20/23 11:04 FiO2 Intake & Output 02/19/23 02/20/23 02/20/23 18:59 06:59 18:59 Intake Total 200 320 Balance 200 320 Intake: Intake, IV Titration 200 200 Amount Piperacillin-Tazobactam 3 200 200 .375 gm In Sodium Chloride 0.9% 100 ml @ 25 mls/hr IVPB Q8HR [facility] Rx# :[id number] Oral 120 Other: # Voids 3 - Labs CBC & Chem 7: 02/20/23 06:48 02/18/23 07:24 Labs: Abnormal Lab Results - Last 24 Hours (Table) 02/20/23 Range/Units 06:48 RBC 3.87 L (4.30-5.90) m/uL Hgb 11.3 L (13.0-17.5) gm/dL Hct 36.2 L (39.0-53.0) % Plt Count 494 H (150-450) k/uL Microbiology - Last 24 Hours (Table) 02/15/23 22:00 Blood Culture - Preliminary Blood
--- NOTE | 2023-02-20 14:28 | P.PN ---
Subjective Progress Note Date: 02/20/23 Principal diagnosis: Abdominal wound infection Patient is a 72-year-old male with a past medical history significant for appendicitis with abscess s/p right colectomy abdominal cultures were negative patient was treated with IV Unasyn and subsequently charged home on or al Augmentin and the patient was discharged home on 02/11/2023 patient is presenting back to [facility] ER on 02/12/2023 concerning for increasing drainage from his incision site. on today's evaluation that is 02/20/2023, the patient denies any fever or chills, the patient lower abdominal pain has decreased in intensity , the patient denies chest pain or shortness of breath or cough, the patient is feeling better no new symptoms Objective - Vital Signs Vital signs: Vital Signs Temp 98.4 F 02/20/23 11:04 Pulse 80 02/20/23 11:04 Resp 16 02/20/23 11:04 BP 110/66 02/20/23 11:04 Pulse Ox 97 02/20/23 11:04 FiO2 Intake & Output 02/19/23 02/20/23 02/20/23 18:59 06:59 18:59 Intake Total 200 320 Balance 200 320 Intake: Intake, IV Titration 200 200 Amount Piperacillin-Tazobactam 3 200 200 .375 gm In Sodium Chloride 0.9% 100 ml @ 25 mls/hr IVPB Q8HR [facility] Rx# :[id number] Oral 120 Other: # Voids 3 - Exam GENERAL DESCRIPTION: An elderly male lying in bed in no distress RESPIRATORY SYSTEM: Unlabored breathing , decreased breath sounds at bases HEART: S1 S2 regular rate and rhythm , ABDOMEN: Soft , lower abdominal wound is currently dressed EXTREMITIES: No edema feet - Labs CBC & Chem 7: 02/20/23 06:48 02/18/23 07:24 Labs: Abnormal Lab Results - Last 24 Hours (Table) 02/20/23 Range/Units 06:48 RBC 3.87 L (4.30-5.90) m/uL Hgb 11.3 L (13.0-17.5) gm/dL Hct 36.2 L (39.0-53.0) % Plt Count 494 H (150-450) k/uL Microbiology - Last 24 Hours (Table) 02/15/23 22:00 Blood Culture - Preliminary Blood 02/16/23 12:10 Gram Stain - Final Abdomen Wound Culture - Final Escherichia coli Assessment and Plan (1) Incisional abscess Current Visit: Yes Status: Acute Code(s): T81.49XA - INFECTION FOLLOWING A PROCEDURE, OTHER SURGICAL SITE, INIT SNOMED Code(s): 83964848 Plan: 1patient presented to hospital with abdominal wound dehiscence in this patient with a recent diagnosis of appendicitis with periappendicular abscess s/p right hemicolectomy patient did have a culture on his last visit those were negative now presenting with dehiscence of the wound however no fever White count has been normal question of possible mechanical dehiscence of local infectious etiol ogy 2-local culture obtained growing E. coli which is a sensitive pathogen 3-local wound care will be switched over to Aquacel silver packing of the wound to be changed daily 4patient seemed to showing overall clinical improvement and well continue with Zosyn with a plan to finish therapy with oral Augmentin 7-10 days and close out patient follow-up Time with Patient: Less than 30
--- NOTE | 2023-02-20 14:43 | P.DS ---
Providers Date of admission: 02/15/23 23:25 Expected date of discharge: 02/20/23 Attending physician: Chuy Gonzalez Consults: 02/15/23 23:23 Consult Physician Routine Consulting Provider: Queenie Lemon Consult Reason/Comments: known Do you want consulting provider notified?: Yes 02/16/23 09:35 Consult Physician Routine Consulting Provider: Rajani Kimbrough Consult Reason/Comments: wound Do you want consulting provider notified?: Yes 02/16/23 10:07 Consult Physician Routine Consulting Provider: Rajani Kimbrough Consult Reason/Comments: Wound care Do you want consulting provider notified?: Yes Primary care physician: Jamil Farfan Hospital Course: Discharge diagnosis 1. Postoperative abdominal wound infection related to perforated appendicitis Hospital course This is a 72-year-old male who is status post recent exploratory laparotomy for perforated appendicitis. He had increased drainage from his abdominal wound. He had been on antibiotics and wound infection was being treated with wet to dry dressings. Cultures were obtained culture grew E. coli which was sensitive to the Augmentin. Patient's pain is controlled. Tolerating diet. He's been afebrile. He is followed by infectious diseases recommending Augmentin for 10 more days. She also will have a wound VAC placed tomorrow by home care service. In the meantime continue Aquacel silver dressing changes to the abdominal wound until wound VAC placed. Patient is stable for discharge. He has been cleared by aerodynamic consultant physicians. Please refer to chart for any further details. Physician Health Administration Teacher note has been reviewed by physician. Signing provider agrees with the documented findings, assessment, and plan of care. Patient Condition at Discharge: Stable Plan - Discharge Summary New Discharge Prescriptions: New Nystatin 100,000 Unit/gm Powd [Mycostatin Powder] 1 applic TOPICAL TID 10 Days #30 gram Amoxic-Pot Clav 875-125Mg [Augmentin 875-125] 1 tab PO BID 10 Days #20 tab Continue Prevagen 1 cap PO DAILY Acetaminophen Tab [Tylenol] 650 mg PO Q6HR PRN tab PRN Reason: Mild Pain Or Fever > 100.5 Furosemide [Lasix] 20 mg PO DAILY Multivitamins, Thera [Multivitamin (formulary)] 1 tab PO DAILY [place]-3/Dha/Epa/Fish Oil [Fish Oil 1,000 mg Softgel] 1 cap PO BID Pantoprazole [Protonix] 40 mg PO DAILY #30 tab Tamsulosin [Flomax] 0.4 mg PO DAILY HYDROcodone/APAP 5-325MG [Kent 5-325] 1 tab PO Q4HR PRN PRN Reason: Pain 1-5 Discontinued Amoxic-Pot Clav 875-125Mg [Augmentin 875-125] 1 tab PO Q12HR 7 Days #14 tab Discharge Medication List Multivitamins, Thera [Multivitamin (formulary)] 1 tab PO DAILY 02/01/23 [History] [place]-3/Dha/Epa/Fish Oil [Fish Oil 1,000 mg Softgel] 1 cap PO BID 02/01/23 [History] Prevagen 1 cap PO DAILY 02/01/23 [History] Acetaminophen Tab [Tylenol] 650 mg PO Q6HR PRN tab 02/11/23 [Rx] Pantoprazole [Protonix] 40 mg PO DAILY #30 tab 02/11/23 [Rx] Furosemide [Lasix] 20 mg PO DAILY 02/15/23 [History] HYDROcodone/APAP 5-325MG [Kent 5-325] 1 tab PO Q4HR PRN 02/15/23 [History] Tamsulosin [Flomax] 0.4 mg PO DAILY 02/15/23 [History] Amoxic-Pot Clav 875-125Mg [Augmentin 875-125] 1 tab PO BID 10 Days #20 tab 02/20/23 [Rx] Nystatin 100,000 Unit/gm Powd [Mycostatin Powder] 1 applic TOPICAL TID 10 Days #30 gram 02/20/23 [Rx] Follow up Appointment(s)/Referral(s): You Farfan MD [Primary Care Provider] - 1-2 days [facility]idential [facility] [NON-STAFF] - 1 Week Rajani Kimbrough MD [STAFF PHYSICIAN] - 1 Week Chuy Gonzalez MD [STAFF PHYSICIAN] - 1 Week Activity/Diet/Wound Care/Special Instructions: Ok to shower Continue Aquacel silver dressing changes daily to abdominal wound until wound VAC is applied tomorrow by home care service Discharge Disposition: HOME WITH HOME HEALTH SERVICES
[2023-02-20 15:22] VITALS: BMI 27.3
== END 2023-02-20 17:00 | disposition home health service (06) | DRG 863 ==
LOC: EC 21:00 → 5NMEDONC 23:25
PROVIDERS: ADMIT Surgery; ATTEND Surgery
DX: T81.41XA Infection following a procedure, superficial incisional surgical site, initial encounter (principal); T81.31XA Disruption of external operation (surgical) wound, not elsewhere classified, initial encounter; D62 Acute posthemorrhagic anemia; B96.20 Unspecified Escherichia coli [E. coli] as the cause of diseases classified elsewhere; D75.838 Other thrombocytosis; B37.2 Candidiasis of skin and nail; G47.33 Obstructive sleep apnea (adult) (pediatric); N40.0 Benign prostatic hyperplasia without lower urinary tract symptoms; Z79.899 Other long term (current) drug therapy; Z96.641 Presence of right artificial hip joint; Z90.49 Acquired absence of other specified parts of digestive tract; Z91.010 Allergy to peanuts; Z91.018 Allergy to other foods; Z88.2 Allergy status to sulfonamides
CPT/HCPCS: 36415; 80048; 80053; 82150; 83605; 83690; 85025; 85027; 85610; 85730; 87040; 87070; 87075; 87077; 87186; 87205; 96361; 96365; 96375; 99285

== ENCOUNTER → 2024-06-22 | Outpatient (CLI) | payer MEDICARE ==
--- NOTE | 2024-06-23 15:08 | P.PCN ---
Date of Procedure: 07/22/24 Operative Findings: Home sleep study report Date of service is 06/22/2024 History This is a 74-year-old male patient with known history of obstructive sleep apnea with an AHI of 22 based on a home sleep test was done in February 2021. The patient has an Whitehouse score of 7. The patient opted not to receive any treatment back in 2020. Over the past 3 years, the patient had no new onset medical problems and comorbidities. No reported congestion heart failure or myocardial infarction. No cardiac arrhythmias. He continues to snore and he has noted apneas and increased apneas by a friend. He is having issues with nocturia and dry mouth. No significant weight gain. The patient based on that requested a reevaluation for that reason a home sleep study was given for this patient Pertinent physical findings The patient's weight is 180 pounds with a body mass index of 28.2. Height is 5 feet and 7 inches Technical description The [employer] ApneaLink system was used to complete his home sleep study. This is a type III home sleep study evaluation. The total recording duration was 7 hours and 39 minutes. The study was started at 10:57 PM and ended at 6:36 AM. There was a total of 7 hours and 31 minutes of flow monitoring and 7 hours and 29 minutes of oxygen saturation monitoring throughout the sleep study and this was an adequate study Results The respiratory evaluation showed a total of 160 obstructive apneas and 34 obstructive hypopneas. The resulting AHI was 25.8 slightly worsened in supine body position Oxygenation analysis The patient had a total of 184 oxygen saturation with a pulse ox dropping more than 4%. The baseline pulse ox while awake was 96%. Average pulse ox during sleep was 93% and the lowest pulse ox was 69% This patient spent approximately 34 minutes of sleep time below pulse ox of 89% Cardiac summary Average heart rate was 67 with a minimum heart rate of 53 and a maximum heart rate of 101 Assessment Symptomatic obstructive sleep apnea with an AHI of 25.8 associated with some mild nocturnal oxygen desaturation with a minimum pulse ox of 69% Chronic hypersomnia with Whitehouse score of 7 Osteoarthritis History of skin cancer Plan Patient is interested in therapy. The patient will be asked to come into the sleep center to undergo a CPAP titration
== END ==
LOC: 3 N SLEEP 11:00
PROVIDERS: ATTEND Internal Medicine Critical Care Medicine

== ENCOUNTER 2024-08-04 19:34 | Outpatient (CLI) | payer MEDICARE ==
--- NOTE | 2024-08-11 23:13 | P.PCN ---
Date of Procedure: 08/04/24 Operative Findings: CPAP titration report Date of service is 08/04/2024 History This is a 74-year-old male patient with known history of obstructive sleep apnea with an AHI of 22 based on a home sleep test was done in February 2021. The patient has an Debary score of 7. The patient opted not to receive any treatment back in 2020. Over the past 3 years, the patient had no new onset medical problems and comorbidities. No reported congestion heart failure or myocardial infarction. No cardiac arrhythmias. He continues to snore and he has noted apneas and increased apneas by a friend. He is having issues with nocturia and dry mouth. No significant weight gain. The patient underwent a home sleep study testing to screen for obstructive sleep apnea. The patient was found to have moderate severe disease with an AHI of 25.8 and the patient also demonstrated nocturnal oxygen desaturations with a minimum pulse ox of 69% during sleep. Based on that, the patient was asked to come into the sleep center to undergo CPAP titration Pertinent physical findings The patient has a weight of 180 pounds with a body mass index of 28.2 Technical description The patient was studied using a standard complex polysomnography protocol that included recording of the Lead II EKG, Central, occipital and frontal EEG, right and left outer canthus EOG, submental EMG, right and left anterior tibialis EMG, respiratory airflow by thermocouple and or pressure/flow transducer, respiratory efforts by abdominal and thoracic PVDF belts, oxygen saturation by cable oximetry. Position by observation synchronized the PSG. Equipment used: [employer]. Stepwise CPAP titration was done to evaluate all obstructive respiratory events Sleep architecture There was a total of 411 minutes of recording time and the total sleep time was 304.5 minutes. Overall sleep efficiency was 74.1%. The latency to sleep onset was 6.5 minutes and the latest REM sleep was 59.0 minutes. The sleep architecture was characterized by 6.1% stage I, 64.4% stage II, 7.6% stage III and 22.0% REM sleep. The wake after sleep onset time was 80.5 minutes and the total arousal index was 7.9 Respiratory analysis The patient was started on CPAP therapy initially at a pressure of 5 cm of water and the pressure was increased by increments of 1 cm of water to reach a maximum CPAP pressure of 7 cm of water. This was successful titration. All sleep stages were encountered and the patient was started during REM and non-REM sleep . The patient was also studied in supine and nonsupine body position. At the target CPAP pressure of 7 cm of water, there was completed illumination of the obstructive respiratory event without any significant oxygen desaturation. Heart rate analysis The average heart rate was 57 with a minimum heart rate of 54 and a maximum heart rate of 62 Periodic limb movements A total of 4 periodic limb movement activity with an index of 0.8 Arousal events A total of 40 arousals with an index of 7.9, respiratory arousal index was 1.4 Assessment Symptomatic obstructive sleep apnea with an AHI of 25.8 associated with some mild nocturnal oxygen desaturation with a minimum pulse ox of 69%, and the patient underwent a successful CPAP titration. There was successful elimination of the obstructive respiratory events and the patient was able to maintain oxygen saturation above 90%. Chronic hypersomnia with Debary score of 7 Osteoarthritis History of skin cancer Plan Initiate CPAP therapy at a pressure of 7 cm of water with a C-Flex of 3. The patient is going to be offered a medium size AirFit F20 fullface mask. The patient was seen back in the office in 30 to 90 days to assess clinical response and compliancy and further adjustments will be done accordingly. Will continue to follow.
== END 2024-08-05 05:30 | disposition home or self-care (01) ==
LOC: 3 N SLEEP 19:34
PROVIDERS: ATTEND Internal Medicine Critical Care Medicine
DX: G47.33 Obstructive sleep apnea (adult) (pediatric) (principal); G47.36 Sleep related hypoventilation in conditions classified elsewhere; G47.10 Hypersomnia, unspecified; M19.90 Unspecified osteoarthritis, unspecified site; Z85.828 Personal history of other malignant neoplasm of skin; Z91.010 Allergy to peanuts; Z91.018 Allergy to other foods; Z88.2 Allergy status to sulfonamides
CPT/HCPCS: 95811